=== PATIENT | female | born 1955 | race Caucasian/White ===

== ENCOUNTER 2020-12-18 11:35 | Outpatient (REF) | payer MEDICARE, OTHER, SELFPAY ==
--- NOTE | ~2020-12-18 | MM_ITS ---
EXAMINATION: MM SCREENING DIGITAL BREAST TOMOSYNTHESIS, BILATERAL CLINICAL INFORMATION: Screening. Asymptomatic. The lifetime risk of breast cancer based on the Tyrer-Cuzick Model is 11%. COMPARISON: Mammography: 10/17/2019, 07/28/2018, 07/18/2017 TECHNIQUE: Digital breast tomosynthesis is performed in both the craniocaudal and mediolateral oblique views along with computer-aided detection (CAD). Synthesized 2D images are generated from the tomosynthesis. FINDINGS: There are scattered areas of fibroglandular density (ACR BI-RADS breast composition Category b). There are no significant masses, abnormal calcifications, or other abnormalities. Parenchymal pattern is similar to prior studies. No developing density. No significant changes. MM/MM tomosynthesis screening BI IMPRESSION: No mammographic evidence of malignancy. ASSESSMENT: BI-RADS 1: Negative RECOMMENDATION: Routine annual mammography screening. This patient's information was entered into a reminder system with a target due date for their next mammogram.
== END 2020-12-18 11:36 | disposition home or self-care (01) ==
LOC: HO.MAMMO 11:35
PROVIDERS: PCP Internal Medicine; Visit Provider Internal Medicine
DX: Z12.31 Encounter for screening mammogram for malignant neoplasm of breast (principal)
CPT/HCPCS: 77063; 77067

== ENCOUNTER 2021-01-25 14:16 | Outpatient (REF) | payer MEDICARE, OTHER, SELFPAY ==
[2021-01-25 17:44] LABS: MANUAL DIFF FLAG NO
[2021-01-25 17:48] LABS: Basophils Absolute Auto 0.1 X10*3/uL (0.0-0.2); Basophils Percent Auto 1.3 % (0-2); Eosinophils Absolute Auto 0.1 X10*3/uL (0.0-0.4); Eosinophils Percent Auto 2.3 % (0-4); Hematocrit 41.3 % (37-47); Hemoglobin 13.4 g/dl (12.0-16.0); Imm Gran Abs Auto 0.02 X10*3/uL (0.00-0.03); Imm Gran Pct Auto 0.3 % (0.0-0.4); Lymphocytes Absolute Auto 1.9 X10*3/uL (1.2-4.9); Lymphocytes Percent Auto 30.8 % (20-40); Mean Corpuscular HGB Conc 32.4 g/dl (31.0-35.0); Mean Corpuscular Hemoglobin 30.4 pg (27.0-33.0); Mean Corpuscular Volume 93.7 fL (80-98); Mean Platelet Volume 10.6 fL (9.4-12.3); Monocytes Absolute Auto 0.4 X10*3/uL (0.1-1.2); Monocytes Percent Auto 7.2 % (2-11); Neutrophils Absolute Auto 3.5 X10*3/uL (2.0-8.3); Neutrophils Percent Auto 58.1 % (45-73); Platelet Count 294 X10*3/uL (160-400); Red Blood Count 4.41 X10*6/uL (4.20-5.50); Red Cell Distribution Width 12.8 % (11.0-16.0); White Blood Count 6.1 X10*3/uL (4.8-10.8)
[2021-01-25 18:05] LABS: Alanine Aminotransferase 12 U/L (0-31); Albumin Level 4.4 g/dL (3.5-5.0); Alkaline Phosphatase 77 U/L (39-117); Anion Gap 12 (12-20); Aspartate Amino Transferase 16 U/L (5-31); Bilirubin Total 0.7 mg/dL (0.0-1.0); Blood Urea Nitrogen 7 mg/dL (9-16); Calcium 10.3 mg/dL (8.4-10.2); Carbon Dioxide 29 mmol/L (22-29); Chloride 102 mmol/L (96-108); Cholesterol 186 mg/dL; Estimated Glomerular Filt Rate > 60; Glucose Fasting 92 mg/dL (60-99); HDL Cholesterol 53 mg/dL; LDL Cholesterol Calculated 109 mg/dl; Potassium 4.2 mmol/L (3.3-5.1); Sodium 139 mmol/L (135-145); Total Protein 6.8 g/dL (6.5-8.0); Triglycerides 124 mg/dL
[2021-01-25 18:27] LABS: Free T4 (Free Thyroxine) 1.13 ng/dL (0.71-1.85); Vitamin D 25-OH Total 62.6 ng/mL (>30)
[2021-01-25 18:51] LABS: Folate 14.3 ng/mL (> or = 4.0); Vitamin B12 452 pg/mL (200-900)
[2021-01-28 18:27] LABS: Thyroid Peroxidase Antibodies 2 IU/mL (<9)
== END 2021-01-25 14:17 | disposition home or self-care (01) ==
LOC: HO.HMGCLDS 14:16
PROVIDERS: PCP Internal Medicine; Visit Provider Internal Medicine
DX: R53.83 Other fatigue (principal); E03.9 Hypothyroidism, unspecified; G25.81 Restless legs syndrome; E78.5 Hyperlipidemia, unspecified; I10 Essential (primary) hypertension; Z78.0 Asymptomatic menopausal state
CPT/HCPCS: 36415; 80053; 80061; 82306; 82607; 82746; 84439; 84443; 85025; 86376

== ENCOUNTER 2021-06-11 11:40 | Outpatient (REF) | payer MEDICARE, OTHER, SELFPAY ==
[2021-06-14 17:06] LABS: Parathyroid Hormone Related Pr 12 pg/mL (11-20)
== END 2021-06-11 11:41 | disposition home or self-care (01) ==
LOC: HO.LAB 11:40
PROVIDERS: PCP Internal Medicine; Visit Provider Internal Medicine
DX: E83.52 Hypercalcemia (principal)
CPT/HCPCS: 36415; 82330; 83519

== ENCOUNTER 2021-08-31 10:46 | Outpatient (REF) | payer MEDICARE, OTHER, SELFPAY ==
[2021-08-31 13:36] LABS: Alanine Aminotransferase 8 U/L (0-31); Anion Gap 10 (12-20); Aspartate Amino Transferase 14 U/L (5-31); Blood Urea Nitrogen 9 mg/dL (9-16); Calcium 9.7 mg/dL (8.4-10.2); Carbon Dioxide 30 mmol/L (22-29); Chloride 104 mmol/L (96-108); Cholesterol 155 mg/dL; Estimated Glomerular Filt Rate > 60; Glucose Fasting 91 mg/dL (60-99); HDL Cholesterol 51 mg/dL; LDL Cholesterol Calculated 91 mg/dl; Potassium 4.1 mmol/L (3.3-5.1); Sodium 140 mmol/L (135-145); Triglycerides 67 mg/dL
[2021-08-31 13:59] LABS: Free T4 (Free Thyroxine) 1.29 ng/dL (0.71-1.85); Thyroid Stimulating Hormone 0.63 uIU/mL (0.32-4.0)
== END 2021-08-31 10:47 | disposition home or self-care (01) ==
LOC: HO.HMGCLDS 10:46
PROVIDERS: PCP Internal Medicine; Visit Provider Internal Medicine
DX: E03.9 Hypothyroidism, unspecified (principal); E78.5 Hyperlipidemia, unspecified; I10 Essential (primary) hypertension
CPT/HCPCS: 36415; 80048; 80061; 84439; 84443; 84450; 84460

== ENCOUNTER 2022-01-04 10:28 | Outpatient (REF) | payer MEDICARE, OTHER, SELFPAY ==
--- NOTE | ~2022-01-04 | MM_ITS ---
EXAMINATION: MM SCREENING DIGITAL BREAST TOMOSYNTHESIS, BILATERAL CLINICAL INFORMATION: Screening. Asymptomatic. The lifetime risk of breast cancer based on the Tyrer-Cuzick Model is 11%. COMPARISON: Mammography: 12/18/2020, 10/17/2019, 07/28/2018 TECHNIQUE: Digital breast tomosynthesis is performed in both the craniocaudal and mediolateral oblique views along with computer-aided detection (CAD). Synthesized 2D images are generated from the tomosynthesis. FINDINGS: There are scattered areas of fibroglandular density (ACR BI-RADS breast composition Category b). There are no significant masses, abnormal calcifications, or other abnormalities. Parenchymal pattern is similar to prior studies. There is no developing density or architectural abnormality. The axilla and skin contours are unremarkable. No significant changes. MM/MM tomosynthesis screening BI IMPRESSION: No mammographic evidence of malignancy. ASSESSMENT: BI-RADS 1: Negative RECOMMENDATION: Routine annual mammography screening. This patient's information was entered into a reminder system with a target due date for their next mammogram.
== END 2022-01-04 10:29 | disposition home or self-care (01) ==
LOC: HO.MAMMO 10:28
PROVIDERS: PCP Internal Medicine; Visit Provider Internal Medicine
DX: Z12.31 Encounter for screening mammogram for malignant neoplasm of breast (principal)
CPT/HCPCS: 77063; 77067

== ENCOUNTER 2022-02-14 15:44 | Inpatient (IN) | payer MEDICARE, OTHER, SELFPAY ==
--- NOTE | ~2022-02-14 | CT_ITS ---
CT ANGIOGRAM NECK WITH CONTRAST CT ANGIOGRAM BRAIN WITH CONTRAST CLINICAL INFORMATION: Diplopia. COMPARISON: Head CT 02/20/2022. TECHNIQUE: Test bolus sequences followed by intravenous administration 70 mL of Omnipaque 350. Helical imaging was performed in the axial plane from the thoracic inlet to the skull vertex. Delayed postcontrast imaging of the head was also performed. The data was processed at the certified hyperbaric technologist workstation for generation of MIP sequences. Angled MIPs and volume rendered reformatted images were also generated at an offline 3D workstation under concurrent supervision. Stenoses are assessed in accordance with NASCET criteria unless otherwise indicated. This CT examination was performed using dose optimization techniques as appropriate, variously including the following: *Automated exposure control *Adjustment of mA and/or kV according to patient size (this includes techniques or standardized protocols for targeted exams where dose is matched to indication/reason for exam; i.e. extremities or head) *Use of iterative reconstruction technique FINDINGS: BRAIN: [There is no intracranial hemorrhage, hydrocephalus, extra-axial surface collection, midline shift, or other herniation pattern. Saab to white matter differentiation is diffusely maintained without evidence of an evolved acute territorial infarct. The basilar cisterns are preserved. No significant soft tissue abnormality. No acute osseous abnormality. There is a small fluid level within the left maxillary sinus. CERVICAL SOFT TISSUES AND LUNG APICES: Biapical pleural parenchymal scarring. There is significant stranding within the subcutaneous fat of the perimandibular, jesse-maxillary, and remaining facial soft tissues bilaterally. These findings are bilateral and symmetric, possibly reflecting facial filler material but should be correlated for any clinical signs of cellulitis which could appear similar. No drainable fluid collections. Multilevel cervical spondylosis. Anterior subluxation of C4 on C5 in the setting of advanced facet arthropathy at this level. NECK CTA: [There is a classic 3 vessel configuration of the aortic arch. Proximal arch vessels are non-stenotic. The vertebral arteries are codominant. No significant ostial stenosis is visualized on either side. Both vertebral arteries are widely patent throughout their extracranial cervical course. Both common carotid arteries are normal in course and caliber.] Atherosclerotic calcification at the right carotid bifurcation resulting in a less than 50% stenosis of the proximal right internal carotid artery. Left internal carotid arteries widely patent. BRAIN CTA: [There is normal opacification of major intracranial arteries. No focal flow-limiting stenosis nor discrete proximal large artery occlusion. No aneurysm. Timing of the contrast bolus allows assessment of the major dural venous sinuses, which all opacify normally] CT/CT angio head neck IMPRESSION: - No acute intracranial findings. - No acute arterial occlusions and no significant arterial stenoses within the head or neck. - There is significant stranding within the subcutaneous fat of the perimandibular, jesse-maxillary, and remaining facial soft tissues bilaterally. These findings are bilateral and symmetric, possibly reflecting facial filler material but should be correlated for any clinical signs of cellulitis which could appear similar. No drainable fluid collections. - Multilevel cervical spondylosis. Anterior subluxation of C4 on C5 in the setting of advanced facet arthropathy at this level.
--- NOTE | ~2022-02-14 | CT_ITS ---
EXAMINATION: CT ABDOMEN AND PELVIS WITH CONTRAST CLINICAL INFORMATION: Follow-up diverticular abscess COMPARISON: CT abdomen and pelvis 02/17/2022 TECHNIQUE: Multidetector volumetric images were obtained from the superior aspect of the liver through the pubic symphysis following administration 85 mL of Omnipaque 350 intravenous contrast. Sagittal and coronal reformatted images were obtained on the technologist's workstation. Oral contrast: No This CT examination was performed using dose optimization techniques as appropriate, variously including the following: *Automated exposure control *Adjustment of mA and/or kV according to patient size (this includes techniques or standardized protocols for targeted exams where dose is matched to indication/reason for exam; i.e. extremities or head) *Use of iterative reconstruction technique DLP: 1876 mGy-cm FINDINGS: LUNG BASES: The visualized lung bases are unremarkable. LIVER, GALLBLADDER, AND BILIARY TREE: The liver is normal in size, shape, and attenuation. No focal hepatic lesion or biliary ductal dilatation is present. Status post cholecystectomy. PANCREAS: Unremarkable. SPLEEN: Unremarkable. ADRENAL GLANDS: Unremarkable. KIDNEYS AND URETERS: The kidneys are normal in size, shape, and attenuation. No hydronephrosis, hydroureter, or calculi seen. No perinephric stranding. Cyst in the upper pole of the right kidney measuring 1.7 cm it does not require imaging follow-up. BLADDER: The bladder is distended. The bladder base is obscured by streak artifact from the left hip prostheses. No gas in the bladder. GASTROINTESTINAL TRACT: There is no high-grade bowel obstruction. Small hiatal hernia. Contrast throughout the small bowel. In the right colon and transverse colon. The descending colon is decompressed with some contrast within it. There is sigmoid diverticulosis. There is a drainage catheter in the right hemipelvis with decompression of the organized fluid collection seen previously, some gas is present adjacent to the pigtail. No significant residual collection appreciated although evaluation of the deep pelvis is limited secondary to the streak artifact. ABDOMINAL WALL: No significant hernia is appreciated. LYMPH NODES: Normal. VASCULAR: Atherosclerotic calcification in the abdominal aorta without aneurysm. PELVIC VISCERA: Pelvic viscera is obscured by streak artifact. OSSEOUS STRUCTURES: Multilevel spondylosis in the visualized thoracolumbar spine. Bilateral total hip arthroplasty. CT/CT abdomen pelvis w IV con IMPRESSION: Right pelvic drainage catheter in place with significantly improved appearance of the right pelvic fluid collection. Small amount of gas surrounding the catheter without significant residual fluid collection. Sigmoid diverticulosis. Fleischner guidelines were followed.
--- NOTE | ~2022-02-14 | CT_ITS ---
EXAMINATION: CT ABDOMEN AND PELVIS WITH CONTRAST CLINICAL INFORMATION: Left lower quadrant pain COMPARISON: None TECHNIQUE: Multidetector volumetric images were obtained from the superior aspect of the liver through the pubic symphysis following administration 85 mL of Omnipaque 350 intravenous contrast. Sagittal and coronal reformatted images were obtained on the technologist's workstation. Oral contrast: No This CT examination was performed using dose optimization techniques as appropriate, variously including the following: *Automated exposure control *Adjustment of mA and/or kV according to patient size (this includes techniques or standardized protocols for targeted exams where dose is matched to indication/reason for exam; i.e. extremities or head) *Use of iterative reconstruction technique DLP: 554 mGy-cm FINDINGS: LUNG BASES: The visualized lung bases are unremarkable. LIVER, GALLBLADDER, AND BILIARY TREE: The liver is normal in size, shape, and attenuation. No focal hepatic lesion or biliary ductal dilatation is present. Cholecystectomy. PANCREAS: Unremarkable. SPLEEN: Unremarkable. ADRENAL GLANDS: Unremarkable. KIDNEYS AND URETERS: The kidneys are normal in size, shape, and attenuation. Focal scarring at the upper pole right kidney and adjacent simple cyst measuring 1.4 cm. No follow-up required. No hydronephrosis, hydroureter, or calculi seen. No perinephric stranding. BLADDER: Unremarkable. GASTROINTESTINAL TRACT: Left colonic diverticulosis. Mild fat stranding about the mid sigmoid colon within the left pelvis suspicious for diverticulitis. Normal appendix. Stomach and small bowel unremarkable. ABDOMINAL WALL: No significant hernia is appreciated. LYMPH NODES: Normal. VASCULAR: Unremarkable. PELVIC VISCERA: There is a 5.7 x 2.7 cm fluid attenuating cyst in the right adnexa apparently originating from the left ovary. Left ovary unremarkable. Normal uterus. OSSEOUS STRUCTURES: No acute or suspicious osseous abnormalities. Degenerative changes present throughout the spine. Bilateral total hip arthroplasties. CT/CT abdomen pelvis w IV con IMPRESSION: * Finding suggestive of acute uncomplicated sigmoid diverticulitis. * Incidental 5.7 x 2.7 cm cyst emanating from the right ovary. Recommend nonemergent pelvic ultrasound for further evaluation.
--- NOTE | ~2022-02-14 | MR_ITS ---
EXAMINATION: MR BRAIN WITHOUT CONTRAST CLINICAL INFORMATION: Diplopia. COMPARISON: Head CTA February 20, 2022. TECHNIQUE: Multiplanar, multisequence imaging of the brain was performed without intravenous contrast. FINDINGS: There is no acute infarction, hemorrhage, mass, or extra-axial fluid collection. Patchy T2/FLAIR hyperintensity seen within the cerebral white matter, typical of chronic microangiopathy. The ventricles and sulci are commensurate with mild degree of brain parenchymal volume loss noted. Degenerative changes are seen within the cervical spine. The major arterial flow voids are preserved at the skull base. Sequela facial augmentation is incidentally noted. The orbital contents appear normal. There are bilateral lens replacements. MR/MR head/brain wo con IMPRESSION: No acute infarct, mass lesion, intracranial hemorrhage, or evidence of hydrocephalus. Background changes of chronic microangiopathy.
--- NOTE | ~2022-02-14 | CT_ITS ---
EXAMINATION: CT HEAD WITHOUT CONTRAST CLINICAL INFORMATION: Diplopia. COMPARISON: None TECHNIQUE: Contiguous axial imaging was performed from the skull base to vertex without intravenous administration of contrast. Coronal and sagittal reformatted images were obtained. This CT examination was performed using dose optimization techniques as appropriate, variously including the following: *Automated exposure control *Adjustment of mA and/or kV according to patient size (this includes techniques or standardized protocols for targeted exams where dose is matched to indication/reason for exam; i.e. extremities or head) *Use of iterative reconstruction technique DLP: 690 mGy-cm FINDINGS: The cortical sulci are normal. The lateral ventricles are symmetrical. Minimal periventricular microvascular changes are seen. The third and fourth ventricles are in their normal midline position. The basilar and prepontine cisterns are unremarkable. There is no acute intra or extracerebral abnormality. There is no mass effect or midline shift. Sections through the bony calvarium are unremarkable. The paranasal sinuses show a very small air-fluid level in the left sphenoid sinus. Minimal mucosal thickening in the ethmoid sinuses. The bony orbits and orbital contents are unremarkable. CT/CT head/brain wo IV con IMPRESSION: No acute intracranial pathology.
--- NOTE | ~2022-02-14 | CT_ITS ---
EXAMINATION: CT ABDOMEN AND PELVIS WITHOUT CONTRAST CLINICAL INFORMATION: Abdominal pain. Follow-up diverticulitis. COMPARISON: Previous CT of the abdomen and pelvis 01/26/2022 TECHNIQUE: Multidetector volumetric imaging was performed from the superior aspect of the liver through the pubic symphysis. Sagittal and coronal reformatted images were obtained on the technologist's workstation. This CT examination was performed using dose optimization techniques as appropriate, variously including the following: *Automated exposure control *Adjustment of mA and/or kV according to patient size (this includes techniques or standardized protocols for targeted exams where dose is matched to indication/reason for exam; i.e. extremities or head) *Use of iterative reconstruction technique DLP: 117 mGy-cm FINDINGS: LUNG BASES: The visualized lung bases are clear. There is a small right posterior diaphragmatic hernia containing fat in the upper pole right kidney.. LIVER, GALLBLADDER, AND BILIARY TREE: The liver is normal in size, shape, and attenuation. No focal hepatic lesion or biliary ductal dilatation is present. The gallbladder has been removed. PANCREAS: Unremarkable. SPLEEN: Unremarkable. ADRENAL GLANDS: Unremarkable. KIDNEYS AND URETERS: There are small bilateral renal stones, right greater than left. The upper pole right kidney through the right diaphragmatic hernia. BLADDER: Unremarkable. GASTROINTESTINAL TRACT: There is diverticulosis of the colon. There is mild wall thickening of the sigmoid colon and stranding of the surrounding fat suggestive of sigmoid diverticulitis. There are small air collections in the pelvis outside the bowel suggestive of obtained perforation. No evidence of free air is seen. There is a 5 x 6 cm fluid collection in the right pelvis with all amount of air suggestive of an abscess. There may be additional smaller abscesses seen in the midline left pelvis superior to the uterine fundus and region of the left adnexa. The small and large bowel is slightly distended and contrast/fluid-filled suggestive of an ileus. Immediate full thickening of the stomach. ABDOMINAL WALL: No significant hernia is appreciated. LYMPH NODES: Normal. VASCULAR: There is evidence of atherosclerotic disease. PELVIC VISCERA: Not well evaluated due to artifact from hip replacements. OSSEOUS STRUCTURES: Degenerative changes of the spine. Anterior subluxation of L4 with respect L5. Bilateral hip replacements. CT/CT abdomen pelvis wo IV con IMPRESSION: Sigmoid diverticulitis. Small amount of extraluminal air in the pelvis suggestive of contained perforation. No evidence of free air. Fluid collection in the right pelvis with small amount of air measuring 5 x 6 cm suggestive of an abscess. Question smaller abscesses superior to the uterus and in the left adnexa. Generalized ileus. Small bilateral renal stones. Findings will be communicated by the [place] work flow vocal artist. Fleischner guidelines were followed.
--- NOTE | ~2022-02-14 | CT_ITS ---
PROCEDURE: CT GUIDED DRAINAGE, PERITONEAL ABSCESS CLINICAL INFORMATION: Diverticulitis and pelvic abscess. COMPARISON: Previous CT of the abdomen and pelvis, most recent from yesterday. TECHNIQUE: Procedure and risks and benefits including bleeding, infection and injury to the bowel or adjacent organs was discussed with the patient and informed consent was obtained. The patient was positioned in the prone position. Limited axial images through the pelvis were performed. The right buttock was prepped and draped in the usual sterile fashion. The skin and soft tissues were anesthetized with 1% lidocaine plain. Using a 22-gauge Chiba needle, access to the fluid collection in the pelvis was obtained. Bronson-colored purulent fluid was aspirated. Over an 018 wire, a 6 [place] AccuStick system was positioned in the collection. 018 wire was exchanged for an 035 wire. An 8.5 [place] pigtail drainage catheter was advanced over the wire into the collection. Approximately 120 mL of bronson, purulent-appearing fluid was removed. Specimen was sent for culture. Conscious sedation was provided by a registered nurse under my direct supervision. The patient received Versed 2 mg and fentanyl 100 mcg intravenously during the procedure. Total sedation time was [address] examination was performed using dose optimization techniques as appropriate, variously including the following: *Automated exposure control *Adjustment of mA and/or kV according to patient size (this includes techniques or standardized protocols for targeted exams where dose is matched to indication/reason for exam; i.e. extremities or head) *Use of iterative reconstruction technique DLP: 164 mGy-cm FINDINGS: There is a 5 x 6 cm fluid collection in the right pelvis with small air-fluid level that was targeted for aspiration. Post-imaging demonstrates adequate position of the drain and no appreciable residual collection seen. CT/CT drain peritoneum IMPRESSION: CT-guided right pelvic 8.5 [place] drain placement.
[2022-02-14 17:01] VITALS: BP 148/85; PULSE 76; RESP 18; TEMP 36.7; O2SAT 99; BMI 22.8
[2022-02-15] VITALS (8 sets, daily range): BP systolic 102–145; BP diastolic 55–84; PULSE 76–95; RESP 14–18; TEMP 37–38.2; O2SAT 95–98
[2022-02-15 01:33] LABS: Basophils Percent Auto 0.1 % (0-2); Hematocrit 41.7 % (37.0-47.0); Hemoglobin 13.5 g/dl (12.0-16.0); Imm Gran Abs Auto 0.03 X10*3/uL (0.00-0.03); Imm Gran Pct Auto 0.2 % (0.0-0.4); Lymphocytes Absolute Auto 0.8 X10*3/uL (1.2-4.9); Lymphocytes Percent Auto 5.7 % (20-40); MANUAL DIFF FLAG NO; Mean Corpuscular HGB Conc 32.4 g/dl (31.0-35.0); Mean Corpuscular Hemoglobin 30.1 pg (27.0-33.0); Mean Corpuscular Volume 93.1 fL (80.0-98.0); Mean Platelet Volume 9.7 fL (9.4-12.3); Monocytes Absolute Auto 0.6 X10*3/uL (0.1-1.2); Monocytes Percent Auto 4.5 % (2-11); Neutrophils Absolute Auto 12.1 x10*3/uL (2.0-8.3); Neutrophils Percent Auto 89.5 % (45-73); Platelet Count 252 X10*3/uL (160-400); Red Blood Count 4.48 X10*6/uL (4.20-5.50); Red Cell Distribution Width 12.6 % (11.0-16.0); White Blood Count 13.5 X10*3/uL (4.8-10.8)
[2022-02-15 01:56] LABS: Alanine Aminotransferase 13 U/L (0-31); Albumin Level 4.5 g/dL (3.5-5.0); Alkaline Phosphatase 74 U/L (39-117); Anion Gap 17 (12-20); Aspartate Amino Transferase 19 U/L (5-31); Bilirubin Direct 0.6 mg/dL (0.0-0.5); Bilirubin Total 1.4 mg/dL (0.0-1.0); Blood Urea Nitrogen 15 mg/dL (9-16); Calcium 9.8 mg/dL (8.4-10.2); Carbon Dioxide 26 mmol/L (22-29); Chloride 99 mmol/L (96-108); Creatinine Clr Calc Pharmacy 63.6; Estimated Glomerular Filt Rate > 60; Glucose Random 114 mg/dL (60-115); Lipase 5 U/L (8-78); Potassium 4.4 mmol/L (3.3-5.1); Sodium 138 mmol/L (135-145); Total Protein 7.1 g/dL (6.5-8.0)
--- NOTE | 2022-02-15 02:19 | ED_ITS ---
HPI - Abdominal Pain General Chief Complaint: Abdominal Pain Stated Complaint: acute lower abd pain Time Seen by Provider: 02/15/22 01:57 Source: patient Mode of arrival: ambulatory History of Present Illness HPI narrative: 66-year-old female who presents with left lower quadrant pain that started evening that has been associated with nausea and chills but she denies active vomiting or fevers and states that she has been unable to eat and that the pain has increased in the lower abdomen, she denies any surgical history and states that she continues to pass flatus. Related Data Home Medications Medication Instructions Recorded Confirmed ascorbate calcium (vitamin C) 500 500 mg PO DAILY 01/25/21 10/31/21 mg tablet cholecalciferol (vitamin D3) 25 25 mcg PO DAILY 01/25/21 10/31/21 mcg (1,000 unit) capsule omeprazole 20 mg capsule,delayed 20 mg PO .QOD 01/25/21 10/31/21 release vitamin E mixed 400 unit capsule unit PO 01/25/21 10/31/21 zinc 50 mg tablet 50 mg PO DAILY 01/25/21 10/31/21 Previous Rx's Medication Instructions Recorded rosuvastatin 5 mg tablet 5 mg PO DAILY #90 tabs 03/28/21 levothyroxine 75 mcg tablet 75 mcg PO DAILY #90 tabs 06/21/21 gabapentin 600 mg tablet 600 mg PO BEDTIME #30 tabs 10/06/21 mupirocin 2 % topical ointment 1 appl topical BID 7 days #15 grams 10/22/21 prednisone 20 mg tablet 20 mg PO DAILY 5 days #5 tabs 10/22/21 clotrimazole-betamethasone 1 1 appl topical ONCE 30 days #45 12/10/21 %-0.05 % topical cream grams atenolol 25 mg tablet 25 mg PO DAILY #90 tabs 12/24/21 lorazepam 0.5 mg tablet 0.5 mg PO DAILY PRN anxiety about 01/23/22 flying #5 tabs Allergies Allergy/AdvReac Type Severity Reaction Status Date / Time No Known Allergies Allergy Mild NOT Verified 10/31/21 10:10 APPLICABLE Review of Systems Review of Systems Pertinent positives and negatives as stated in HPI 10 point review of systems is otherwise negative. PMFSH Past Medical History Source: nursing notes reviewed Medical History Acquired hypothyroidism Dyslipidemia Essential hypertension Fatigue Restless leg syndrome Social History Social History Housing: House Patient Tobacco Use Status: Former Tobacco user Years Smoked: 25 yrs e-Cigarette/Vaping Use: Never Used Use of substances other than those prescribed or required for medical reasons: No Advance Directives: No Advance Directives Information Provided: No Current occupational status: retired Cognitive needs: No Hearing needs: No Vision needs: No Physical Exam ED Vital Signs: Vital Signs - 24 hr 02/14/22 17:01 02/15/22 02:28 Temperature 98.1 F 100.8 F H Pulse Rate 76 95 Respiratory Rate 18 14 Blood Pressure 148/85 H 145/84 H Pulse Oximetry 99 96 Oxygen Delivery Method Room Air Room Air BMI result Body Mass Index 22.8 VITAL SIGNS: Reviewed. GENERAL: Well developed, well nourished, in no acute distress. HEAD: Normocephalic/atraumatic EYES: PERRLA, EOMI EARS: Ext canals without abnormality OROPHARYNX: no oral lesions noted, posterior pharynx clear dry mucosa NECK: Supple, no adenopathy LUNGS: Normal breath sounds. No adventitious sounds or accessory muscle use. SpO2<99> CARDIOVASCULAR: Regular rate and rhythm without noted murmurs ABDOMEN: Soft, diffuse tenderness in lower abdomen without rebound, non- distended with bowel sounds. MUSCULOSKELETAL: No tenderness, deformities, or effusions noted on gross inspection. EXTREMITIES: No cyanosis, clubbing or edema. SKIN: Inspection of the skin reveals no rashes NEUROLOGIC: Alert and oriented x 4. Strength and sensation to light touch were grossly intact x 4. Course Course Course Narrative: 0222: 66-year-old female with history and clinical presentation for which we will rule out diverticulitis, UTI, renal colic, appendicitis, SBO. Patient received IV fluids as well as pain medication. After review of all investigations findings consistent with diverticulitis, poor p.o. intake and dehydration. Patient received IV fluids, antibiotics as well as antiemetics. I discussed the case with the surgical team who accepts admission. MDM - Abdominal Pain Lab Data Result diagrams: 02/15/22 01:28 02/15/22 01:28 Labs: Lab Results 02/15/22 02/15/22 02/15/22 Range/Units 01:28 01:28 02:58 WBC 13.5 H (4.8-10.8) X10*3/uL RBC 4.48 (4.20-5.50) X10*6/uL Hgb 13.5 (12.0-16.0) g/dl Hct 41.7 (37.0-47.0) % MCV 93.1 (80.0-98.0) fL MCH 30.1 (27.0-33.0) pg MCHC 32.4 (31.0-35.0) g/dl RDW 12.6 (11.0-16.0) % Plt Count 252 (160-400) X10*3/uL MPV 9.7 (9.4-12.3) fL Immature Gran % (Auto) 0.2 (0.0-0.4) % Neut % (Auto) 89.5 H (45-73) % Lymph % (Auto) 5.7 L (20-40) % [place] % (Auto) 4.5 (2-11) % Eos % (Auto) 0.0 (0-4) % Baso % (Auto) 0.1 (0-2) % Lymph # (Auto) 0.8 L (1.2-4.9) X10*3/uL [place] # (Auto) 0.6 (0.1-1.2) X10*3/uL Eos # (Auto) 0.0 (0.0-0.4) X10*3/uL Baso # (Auto) 0.0 (0.0-0.2) X10*3/uL Abs Immat Gran (auto) 0.03 (0.00-0.03) X10*3/uL Absolute Neuts (auto) 12.1 H (2.0-8.3) x10*3/uL Absolute Nucleated RBC 0.000 (0.0-0.012) X10*3/uL Nucleated RBC % (auto) 0.0 (0.0-0.2) /100WBC Sodium 138 (135-145) mmol/L Potassium 4.4 (3.3-5.1) mmol/L Chloride 99 (96-108) mmol/L Carbon Dioxide 26 (22-29) mmol/L Anion Gap 17 (12-20) BUN 15 D (9-16) mg/dL Creatinine 0.70 (0.5-1.4) mg/dL Estim Creat Clear Calc 63.6 Estimated GFR > 60 Random Glucose 114 (60-115) mg/dL Lactic Acid 1.2 (0.5-2.0) mmol/L Calcium 9.8 (8.4-10.2) mg/dL Total Bilirubin 1.4 H (0.0-1.0) mg/dL Direct Bilirubin 0.6 H (0.0-0.5) mg/dL AST 19 (5-31) U/L ALT 13 (0-31) U/L Alkaline Phosphatase 74 (39-117) U/L Total Protein 7.1 (6.5-8.0) g/dL Albumin 4.5 (3.5-5.0) g/dL Lipase 5 L (8-78) U/L COVID-19 ([facility]) (Negative) COVID-19 Clin Com 02/15/22 Range/Units 02:58 WBC (4.8-10.8) X10*3/uL RBC (4.20-5.50) X10*6/uL Hgb (12.0-16.0) g/dl Hct (37.0-47.0) % MCV (80.0-98.0) fL MCH (27.0-33.0) pg MCHC (31.0-35.0) g/dl RDW (11.0-16.0) % Plt Count (160-400) X10*3/uL MPV (9.4-12.3) fL Immature Gran % (Auto) (0.0-0.4) % Neut % (Auto) (45-73) % Lymph % (Auto) (20-40) % [place] % (Auto) (2-11) % Eos % (Auto) (0-4) % Baso % (Auto) (0-2) % Lymph # (Auto) (1.2-4.9) X10*3/uL [place] # (Auto) (0.1-1.2) X10*3/uL Eos # (Auto) (0.0-0.4) X10*3/uL Baso # (Auto) (0.0-0.2) X10*3/uL Abs Immat Gran (auto) (0.00-0.03) X10*3/uL Absolute Neuts (auto) (2.0-8.3) x10*3/uL Absolute Nucleated RBC (0.0-0.012) X10*3/uL Nucleated RBC % (auto) (0.0-0.2) /100WBC Sodium (135-145) mmol/L Potassium (3.3-5.1) mmol/L Chloride (96-108) mmol/L Carbon Dioxide (22-29) mmol/L Anion Gap (12-20) BUN (9-16) mg/dL Creatinine (0.5-1.4) mg/dL Estim Creat Clear Calc Estimated GFR Random Glucose (60-115) mg/dL Lactic Acid (0.5-2.0) mmol/L Calcium (8.4-10.2) mg/dL Total Bilirubin (0.0-1.0) mg/dL Direct Bilirubin (0.0-0.5) mg/dL AST (5-31) U/L ALT (0-31) U/L Alkaline Phosphatase (39-117) U/L Total Protein (6.5-8.0) g/dL Albumin (3.5-5.0) g/dL Lipase (8-78) U/L COVID-19 ([facility]) Negative (Negative) COVID-19 Clin Com See Note Critical Care Time Critical Care Time Critical Care Time: Yes Total Critical Care Time: 30 Attestation: I personally attest to this time spent taking care of the patient. Discharge Plan Discharge Clinical Impression: Sepsis, Diverticulitis, Dehydration, Ovarian cyst Patient Disposition: Admitted As Inpatient
[2022-02-15] MEDS: Ketorolac Tromethamine 30 MG/ML VIAL 15 MG IVPUSH (02:22)
[2022-02-15] MEDS: 0.9 % Sodium Chloride 1,000 ML 999 ML IV (02:23)
[2022-02-15] MEDS: iohexoL 350 MG/ML 100 ML INFUS..BTL 85 ML IV (02:47)
[2022-02-15 03:19] LABS: COVID-19 Test Negative (Negative); Lactic Acid 1.2 mmol/L (0.5-2.0)
[2022-02-15] MEDS: HYDROmorphone HCl 0.5 MG/0.5 ML SYRINGE IVPUSH ×5 (03:52→22:31)
[2022-02-15] MEDS: ondansetron HCL 4 MG/2 ML VIAL IVPUSH (03:52)
[2022-02-15] MEDS: Piperacillin Sodium/Tazobactam 3.375 GM in 0.9 % Sodium Chloride 50 ML IV ×4 (03:53→21:10)
[2022-02-15] MEDS: Acetaminophen 325 MG TABLET 975 MG PO (03:53)
--- NOTE | 2022-02-15 03:54 | P.HPGS_ITS ---
History of Present Illness History of Present Illness Date of Service: 02/15/22 Chief complaint: Acute sigmoid diverticulitis Narrative: Fide Edward is a 66 year old female presenting with complaints of abdominal pain in theLower abdomen since 02/13/2022. She denies a pre vious history of similar pain. She reports several days of constipation but denied fever, chills, nausea, or vomiting. Upon presentation she reports her pain was 10/10 but currently the pain is 6/10 after pain medication. Workup in the emergency department revealed a WBC of 13.5. CT abdomen and pelvis revealed an ovarian cyst on the left side with a normal ovary ( follow-up ultrasound recommended ). An area of sigmoid diverticulitis without abscess was identified . Her last colonoscopy was performed by Dr. Diane on 09/24/2012 and revealed a benign polyp at 40 cm. Review of Systems Review of Systems: Yes all other systems are reviewed and are negative Constitutional: Constitutional: Denies chills, Denies fever(s), Denies headache(s), Reports poor appetite and Denies weakness ENT: Denies headache(s) Cardiovascular: Cardiovascular: Denies chest pain, Denies irregular heart rhythm, Denies palpitations and Denies dyspnea Respiratory: Respiratory: Denies cough, Denies excessive phlegm production and Denies dyspnea Gastrointestinal: Gastrointestinal: Reports abdominal pain, Reports bloating, Denies change in bowel habits, Reports constipation, Denies heartburn, Denies diarrhea, Denies nausea and Denies vomiting Genitourinary: Genitourinary: Denies urinary frequency Musculoskeletal: Musculoskeletal: Denies back pain, Reports arthralgias ( Rec ently underwent knee injections), Denies muscle weakness and Denies numbness Integumentary/Breasts: Skin/Breast: Denies changing lesions and Denies unusual bruising Neurologic: Denies headache(s), Denies numbness, Denies paresthesias and Denies weakness Psychiatric: Psychiatric: Denies anxiety and Denies depression Endocrine: Endocrine: Denies palpitations Hematologic/Lymphatic: Hematologic/Lymphatic: Denies lymphadenopathy PMFSH Past Medical History Medical History Acquired hypothyroidism Dyslipidemia Essential hypertension Fatigue Restless leg syndrome Surgical History Surgical History (Updated 02/15/22 @ 08:43 by Vernon Gupta MD) Hx laparoscopic cholecystectomy (07/04/96) Social History Social History Housing: House Patient Tobacco Use Status: Former Tobacco user Years Smoked: 25 yrs e-Cigarette/Vaping Use: Never Used Use of substances other than those prescribed or required for medical reasons: No Advance Directives: No Advance Directives Information Provided: No Current occupational status: retired Cognitive needs: No Hearing needs: No Vision needs: No Meds Allergies Allergy/AdvReac Type Severity Reaction Status Date / Time No Known Allergies Allergy Mild NOT Verified 10/31/21 10:10 APPLICABLE Active Medications: Current Medications Acetaminophen (Acetaminophen 325 Mg Tablet) 650 mg PO QID PRN PRN Reason: headache, temp > 101 Hydromorphone HCl (Hydromorphone Hcl 0.5 Mg/0.5 Ml Syringe) 0.5 mg IVPUSH Q3H PRN; Protocol PRN Reason: Pain, Severe (Pain Scale 7-10) Dextrose/Lactated Ringer's (D5lr) 1,000 mls @ 125 mls/hr IVCONT .Q8H JOSE Piperacillin Sod/Tazobactam (Sod 3.375 gm/ Sodium Chloride) 50 mls @ 100 mls/hr IV Q6H JOSE Ondansetron HCl (Ondansetron Hcl 4 Mg/2 Ml Vial) 4 mg IVPUSH QID PRN PRN Reason: Nausea Oxycodone HCl (Oxycodone Hcl Immed Release 5 Mg Tablet) 5 mg PO Q6H PRN PRN Reason: Pain, Moderate (Pain Scale 4-6 Pharmacy Consult (Consult Rx Perform Med Rec) 1 each MISCELLANE ONCE PRN PRN Reason: Consult order Sodium Chloride (0.9 % Sodium Chloride Flush 3 Ml Syringe) 3 ml IVFLUSH QSHIFT JOSE Zolpidem Tartrate (Zolpidem Tartrate 5 Mg Tablet) 5 mg PO BEDTIME PRN PRN Reason: Insomnia Home Medications Medication Instructions Recorded Confirmed Last Taken Type ascorbate calcium (vitamin C) 500 500 mg PO DAILY 01/25/21 10/31/21 Unknown History mg tablet cholecalciferol (vitamin D3) 25 25 mcg PO DAILY 01/25/21 10/31/21 Unknown History mcg (1,000 unit) capsule omeprazole 20 mg capsule,delayed 20 mg PO .QOD 01/25/21 10/31/21 Unknown History release vitamin E mixed 400 unit capsule unit PO 01/25/21 10/31/21 Unknown History zinc 50 mg tablet 50 mg PO DAILY 01/25/21 10/31/21 Unknown History Physical Exam Vital Signs: Vital Signs: Last Vital Signs Temp 100.8 F H 02/15/22 02:28 Pulse 95 02/15/22 02:28 Resp 14 02/15/22 02:28 BP 145/84 H 02/15/22 02:28 Pulse Ox 96 02/15/22 02:28 O2 Del Method 02/15/22 02:28 BMI result Body Mass Index 22.8 Const: General: cooperative and no acute distress Nutritional Appearance: well nourished Orientation/consciousness: patient oriented x3 Limitations: no limitations HEENT: Head: Yes normocephalic and Yes atraumatic Ears: hearing grossly normal bilaterally Resp: Effort & Inspection: normal respiratory effort, no audible wheezes, no cough and no respiratory distress Auscultation: clear to auscultation bilaterally, no crackles, no rales, no rhonchi and no wheezes Cardio: Jugular venous distension: no JVD Rate: regular rate Rhythm: reg ular rhythm Heart sounds: S1 normal heart sound present and S2 normal heart sound present GI: Inspection: Yes normal to inspection Palpation (GI): Soft to palpation, Tenderness to palpation present (GI) in the LLQ and in the RLQ; not at McBurney's point, no guarding, not rigid and no hernias Percussion: Yes normal to percussion Auscultation: normal bowel sounds Skin: Other: Warm, dry, no rash Neuro: General: patient oriented x3 Extrem: General: Yes normal to inspection and Yes no clubbing, cyanosis or edema Results Results Labs: Short CBC 02/15/22 Range/Units 01:28 WBC 13.5 H (4.8-10.8) X10*3/uL Hgb 13.5 (12.0-16.0) g/dl Hct 41.7 (37.0-47.0) % Plt Count 252 (160-400) X10*3/uL BMP 02/15/22 01:28 Sodium 138 Potassium 4.4 Chloride 99 Carbon Dioxide 26 BUN 15 D Creatinine 0.70 Calcium 9.8 Liver Function 02/15/22 Range/Units 01:28 Total Bilirubin 1.4 H (0.0-1.0) mg/dL Direct Bilirubin 0.6 H (0.0-0.5) mg/dL AST 19 (5-31) U/L ALT 13 (0-31) U/L Alkaline Phosphatase 74 (39-117) U/L Albumin 4.5 (3.5-5.0) g/dL Assessment and Plan (1) Diverticulitis: Status: Acute Plan 66-year-old female patient presenting with a 1st episode of sigmoid diverticulitis presenting with pain since 02/13/2022. Patient has a mildly elevated WBC and CT reveals small area of thickening in the sigmoid colon with no abscess. Findings are consistent with non complicated sigmoid diverticulitis. I recommended a short period of IV antibiotics with conversion to oral antibiotics once her pain is improved and she is tolerating a regular diet. She has had several liquid bowel movements in the emergency department therefore I will start on clear liquids today. Patient expressed understanding and agrees with the plan. We discussed colonoscopy after the acute diverticulitis has subsided, and she is 9 years since her last colonoscopy. In addition, an outpatient and pelvic ultrasound is recommended to evaluate the ovarian cyst. Quality Stroke Does the patient have a stroke diagnosis?: No VTE Prior VTE?: No VTE Risk Level:: Surgical - low VTE Device Contraindication: N/A - Device Ordered VTE Drug Contraindication: Treatment Not Indicated Procedures Date of Service Date of Service: 02/15/22
--- NOTE | 2022-02-15 04:04 | PC.NURSE ---
assumed care of patient @0315. iv zosyn, zofran, dilaudid, and po tylenol given per mar orders. pt resting comfortably on stretcher. speaking clear full sentences, A&Ox4. no apparent distress. will continue to monitor
--- NOTE | 2022-02-15 05:59 | PC.NURSE ---
pt sleeping comfortably on stretcher. no apparent distress equal chest rise and fall. call benson within reach
[2022-02-15] MEDS: Dextrose 5 % and Lactated Ring 1,000 ML 125 ML IVCONT ×3 (06:34→23:37)
[2022-02-15 08:25] LABS: Anion Gap 14 (12-20); Blood Urea Nitrogen 15 mg/dL (9-16); Carbon Dioxide 24 mmol/L (22-29); Chloride 103 mmol/L (96-108); Creatinine Clr Calc Pharmacy 61.8; Estimated Glomerular Filt Rate > 60; Glucose Random 138 mg/dL (60-115); Potassium 4.4 mmol/L (3.3-5.1); Sodium 137 mmol/L (135-145)
[2022-02-15 08:47] LABS: Calcium 8.7 mg/dL (8.4-10.2)
--- NOTE | 2022-02-15 08:51 | PC.NURSE ---
pt. A&O x4. resting comfortably. reports abd pain on RUQ and adb spasms. pain 11/03. Gave her Dilaudid 0.5mg. some N/D.
[2022-02-15] MEDS: Acetaminophen 325 MG TABLET 650 MG PO ×2 (10:13→16:14)
--- NOTE | 2022-02-15 10:21 | PHA.MEDREC ---
Pharmacy Consult ? Medication Reconciliation Pharmacy has completed the medication reconciliation. sPOKE WITH PATIENT IN THE ED
--- NOTE | 2022-02-15 11:14 | MHC.CM.PN ---
Attempted to meet with patient in regards to discharge planning. Patient currently sleeping. No family present. Will attempt to meet again. Continue to monitor for d/c needs.
--- NOTE | 2022-02-15 16:31 | PC.NURSE ---
pt resting comfortably. complains of pain 12/04. States pain meds help with pain but doesn't last long. gave her Tylenol and a cold wet rag to put on her forehead.
[2022-02-15] MEDS: Atorvastatin Calcium 20 MG TABLET PO (21:10)
[2022-02-15] MEDS: Gabapentin 600 MG TABLET PO (21:10)
[2022-02-15] MEDS: 0.9 % Sodium Chloride Flush 3 ML SYRINGE IVFLUSH (21:16)
[2022-02-15] MEDS: oxyCODONE HCl Immed Release 5 MG TABLET PO (21:25)
[2022-02-16] VITALS (8 sets, daily range): BP systolic 115–130; BP diastolic 65–83; PULSE 80–92; RESP 16–18; TEMP 36.5–37.4; O2SAT 95–98
[2022-02-16] MEDS: Levothyroxine Sodium 75 MCG TABLET PO (05:20)
[2022-02-16] MEDS: Piperacillin Sodium/Tazobactam 3.375 GM in 0.9 % Sodium Chloride 50 ML IV ×4 (05:21→22:06)
[2022-02-16] MEDS: Dextrose 5 % and Lactated Ring 1,000 ML 125 ML IVCONT (05:24)
[2022-02-16 06:19] LABS: MANUAL DIFF FLAG NO
[2022-02-16 06:32] LABS: Basophils Percent Auto 0.1 % (0-2); Eosinophils Percent Auto 0.3 % (0-4); Hematocrit 34.5 % (37.0-47.0); Hemoglobin 11.1 g/dl (12.0-16.0); Imm Gran Abs Auto 0.07 X10*3/uL (0.00-0.03); Imm Gran Pct Auto 0.5 % (0.0-0.4); Lymphocytes Absolute Auto 0.8 X10*3/uL (1.2-4.9); Lymphocytes Percent Auto 5.4 % (20-40); Mean Corpuscular HGB Conc 32.2 g/dl (31.0-35.0); Mean Corpuscular Hemoglobin 30.2 pg (27.0-33.0); Mean Corpuscular Volume 93.8 fL (80.0-98.0); Mean Platelet Volume 10.2 fL (9.4-12.3); Monocytes Absolute Auto 0.6 X10*3/uL (0.1-1.2); Monocytes Percent Auto 4.3 % (2-11); Neutrophils Absolute Auto 12.4 x10*3/uL (2.0-8.3); Neutrophils Percent Auto 89.4 % (45-73); Platelet Count 199 X10*3/uL (160-400); Red Blood Count 3.68 X10*6/uL (4.20-5.50); Red Cell Distribution Width 12.5 % (11.0-16.0); White Blood Count 13.8 X10*3/uL (4.8-10.8)
--- NOTE | 2022-02-16 09:38 | PM.PNGS ---
Subjective Subjective Date of Service: 02/16/22 Interval history: Overall the patient does feel improved but does report some back pain this morning. She denies any further diarrhea. She reports being hungry and would like to try a regular diet. Physical Exam Vital Signs: Vital Signs: Last Vital Signs Temp 99.3 F 02/16/22 07:54 Pulse 92 02/16/22 07:54 Resp 18 02/16/22 07:54 BP 130/75 02/16/22 07:54 Pulse Ox 97 02/16/22 07:54 O2 Del Method 02/16/22 07:54 BMI result Body Mass Index 22.8 Const: General: cooperative and no acute distress Nutritional Appearance: well nourished Orientation/consciousness: patient oriented x3 Limitations: no limitations HEENT: Head: Yes normocephalic and Yes atraumatic Ears: hearing grossly normal bilaterally Resp: Effort & Inspection: normal respiratory effort, no audible wheezes, no cough and no respiratory distress Auscultation: clear to auscultation bilaterally, no crackles, no rales, no rhonchi and no wheezes Cardio: Jugular venous distension: no JVD Rate: regular rate Rhythm: regular rhythm Heart sounds: S1 normal heart sound present and S2 normal heart sound present GI: Inspection: Yes normal to inspection Palpation (GI): Soft to palpation, Tenderness to palpation present (GI) (Less tender this morning compared to yesterday) in the LLQ and in the RLQ; not at McBurney's point, no guarding, not rigid and no hernias Percussion: Yes normal to percussion Auscultation: normal bowel sounds Skin: Other: Warm, dry, no rash Neuro: General: patient oriented x3 Extrem: General: Yes normal to inspection and Yes no clubbing, cyanosis or edema Objective Data Active Medications Acetaminophen (Acetaminophen 325 Mg Tablet) 650 mg PO QID PRN PRN Reason: headache, temp > 101 Last Admin: 02/15/22 16:14 Dose: 650 mg Documented By: JELLY Atenolol (Atenolol 25 Mg Tablet) 25 mg PO DAILY [facility]; Protocol Atorvastatin Calcium (Atorvastatin Calcium 20 Mg Tablet) 20 mg PO BEDTIME [facility] Last Admin: 02/15/22 21:10 Dose: 20 mg Documented By: ALINA Gabapentin (Gabapentin 600 Mg Tablet) 600 mg PO BEDTIME [facility] Last Admin: 02/15/22 21:10 Dose: 600 mg Documented By: ALINA Hydromorphone HCl (Hydromorphone Hcl 0.5 Mg/0.5 Ml Syringe) 0.5 mg IVPUSH Q3H PRN; Protocol PRN Reason: Pain, Severe (Pain Scale 7-10) Last Admin: 02/15/22 22:31 Dose: 0.5 mg Documented By: ALINA Piperacillin Sod/Tazobactam (Sod 3.375 gm/ Sodium Chloride) 50 mls @ 100 mls/hr IV Q6H [facility] Last Infusion: 02/16/22 06:09 Dose: 0 mls/hr Documented By: ALINA Levothyroxine Sodium (Levothyroxine Sodium 75 Mcg Tablet) 75 mcg PO DAILY@06 [facility] Last Admin: 02/16/22 05:20 Dose: 75 mcg Documented By: ALINA Omeprazole (Omeprazole 20 Mg Capsule.Dr) 20 mg PO Q2D@629 [facility] Ondansetron HCl (Ondansetron Hcl 4 Mg/2 Ml Vial) 4 mg IVPUSH Q8H PRN PRN Reason: Nausea Oxycodone HCl (Oxycodone Hcl Immed Release 5 Mg Tablet) 5 mg PO Q6H PRN PRN Reason: Pain, Moderate (Pain Scale 4-6 Last Admin: 02/15/22 21:25 Dose: 5 mg Documented By: ALINA Pharmacy Consult (Consult Rx Perform Med Rec) 1 each MISCELLANE ONCE PRN PRN Reason: Consult order Sodium Chloride (0.9 % Sodium Chloride Flush 3 Ml Syringe) 3 ml IVFLUSH QSHIFT [facility] Last Admin: 02/16/22 07:46 Dose: Not Given Documented By: COTEMA Non-Admin Reason: IV Running Zolpidem Tartrate (Zolpidem Tartrate 5 Mg Tablet) 5 mg PO BEDTIME PRN PRN Reason: Insomnia Labs CBC & Chem 7: 02/16/22 05:55 02/15/22 07:23 Labs: Laboratory Results - last 24 hr 02/16/22 05:55 MCV 93.8 MCH 30.2 MCHC 32.2 RDW 12.5 Plt Count 199 MPV 10.2 Immature Gran % (Auto) 0.5 H Neut % (Auto) 89.4 H Lymph % (Auto) 5.4 L [place] % (Auto) 4.3 Eos % (Auto) 0.3 Baso % (Auto) 0.1 Lymph # (Auto) 0.8 L [place] # (Auto) 0.6 Eos # (Auto) 0.0 Baso # (Auto) 0.0 Abs Immat Gran (auto) 0.07 H Absolute Neuts (auto) 12.4 H Absolute Nucleated RBC 0.000 Nucleated RBC % (auto) 0.0 Microbiology Microbiology Results: Microbiology 02/15/22 02:58 Blood Culture - Preliminary Blood - Venous No growth after 24 hours. 02/15/22 02:58 Blood Culture - Preliminary Blood - Venous No growth after 24 hours. Procedures Date of Service Date of Service: 02/16/22 Progress Note: A&P Assessment and plan (1) Diverticulitis: Status: Acute Plan 66-year-old female patient presenting with a 1st episode of uncomplicated diverticulitis. Her abdominal pain is improved although the WBC remains elevated. She will continue on IV Zosyn for now. Blood cultures are negative to date. Her abdominal exam is improved with decreased abdominal tenderness, no rebound or guarding. I will advance her to a regular diet today (low-fiber). Possible discharge tomorrow if this is tolerated and WBC is improved. Time Spent With Patient Time: Total time spent is greater than 50% in coordination of care (as documented) at patient's floor/unit and/or counseling patient: No Severe Sepsis: No Severe Sepsis Quality Stroke Does the patient have a stroke diagnosis?: No VTE Prior VTE?: No VTE Risk Level:: Surgical - low VTE Device Contraindication: N/A - Device Ordered VTE Drug Contraindication: Treatment Not Indicated
[2022-02-16] MEDS: HYDROmorphone HCl 0.5 MG/0.5 ML SYRINGE IVPUSH ×2 (09:49→14:52)
[2022-02-16] MEDS: atenoloL 25 MG TABLET PO (09:49)
[2022-02-16] MEDS: 0.9 % Sodium Chloride Flush 3 ML SYRINGE IVFLUSH ×2 (14:52→20:45)
--- NOTE | 2022-02-16 15:46 | MHC.CM.PN ---
PT REPORTS SHE LIVES WITH HER AND IS INDEPENDENT WITH CARE PT DENIES USE OF DME OR HOME SERVICES PT REPORTS SHE BELIEVES SHE HAS A HCP NAMING HER DAUGHTER HER AGENT SHE WILL CHECK WITH HER DAUGHTER AND IS AWARE CM CAN ASSIST IN COMPLETION OF ONE AT ANY TIME DURING ADMISSION SHE REPORTS SHE IS COVID VAX X 4 AND WAS DUE TO GET ANOTHER BOOSTER BUT MISSED HER APPT DUE TO ADMISSION PCP: MARY ROSARIO IMM DELIVERED CURRENT DC PLAN IS HOME WITH NO SERVICES TO TRANSPORT
[2022-02-16 20:27] LABS: Glucose, Whole Blood 87 mg/dL (60-115)
[2022-02-16] MEDS: ondansetron HCL 4 MG/2 ML VIAL IVPUSH (20:42)
[2022-02-16] MEDS: Gabapentin 600 MG TABLET PO (22:03)
[2022-02-16] MEDS: Atorvastatin Calcium 20 MG TABLET PO (22:04)
[2022-02-17] MEDS: HYDROmorphone HCl 0.5 MG/0.5 ML SYRINGE IVPUSH ×4 (02:27→20:06)
[2022-02-17 04:00] VITALS: BP 131/77; PULSE 85; RESP 14; TEMP 37; O2SAT 96
[2022-02-17] MEDS: Levothyroxine Sodium 75 MCG TABLET PO (05:20)
[2022-02-17] MEDS: Piperacillin Sodium/Tazobactam 3.375 GM in 0.9 % Sodium Chloride 50 ML IV ×4 (05:20→22:16)
[2022-02-17] MEDS: Omeprazole 20 MG CAPSULE.DR PO (05:20)
[2022-02-17 06:01] LABS: MANUAL DIFF FLAG NO
[2022-02-17 06:09] LABS: Basophils Percent Auto 0.1 % (0-2); Eosinophils Absolute Auto 0.2 X10*3/uL (0.0-0.4); Eosinophils Percent Auto 1.6 % (0-4); Hematocrit 34.5 % (37.0-47.0); Hemoglobin 11.4 g/dl (12.0-16.0); Imm Gran Abs Auto 0.15 X10*3/uL (0.00-0.03); Imm Gran Pct Auto 1.3 % (0.0-0.4); Lymphocytes Absolute Auto 0.7 X10*3/uL (1.2-4.9); Mean Corpuscular Hemoglobin 30.6 pg (27.0-33.0); Mean Corpuscular Volume 92.7 fL (80.0-98.0); Mean Platelet Volume 10.2 fL (9.4-12.3); Monocytes Absolute Auto 0.8 X10*3/uL (0.1-1.2); Monocytes Percent Auto 6.8 % (2-11); Neutrophils Percent Auto 84.2 % (45-73); Platelet Count 232 X10*3/uL (160-400); Red Blood Count 3.72 X10*6/uL (4.20-5.50); Red Cell Distribution Width 12.4 % (11.0-16.0); White Blood Count 11.9 X10*3/uL (4.8-10.8)
[2022-02-17 07:36] VITALS: BP 140/78; PULSE 88; RESP 17; TEMP 37.1; O2SAT 98
--- NOTE | 2022-02-17 08:07 | P.CDIC_ITS ---
CDI Concurrent Query Documentation Clarification: PHYSICIAN'S DOCUMENTATION REQUEST Date of Query: 02/17/22 0808 Patient Name: Fide Edward Admit Date: 02/15/22 Dear Doctor, A review of the medical record indicates additional documentation may be needed. Please review below and update the documentation accordingly. Clinical Indicators: Documentation on ED progress note dated 02/15/22 included the diagnosis of Sepsis. The patient's infectious clinical indicators include: Risk Factors/Clinical Indicators/Treatments WBC 13.5 T 100.8 HR 95 Treated with IV Zosyn Recognized standard criteria for this condition and other infectious definitions includes: Sepsis Systemic manifestations of infection, with 2 or more SIRS criteria which include: * Fever > 100.4?F or hypothermia < 96.8?F * Leukocytosis ? WBC > 12,000 or leukopenia, WBC < 4,000, or > 10% bands * Tachycardia- > 90 beats/minute * Tachypnea- RR > 20 breaths/minute or PaCO2 < 32mmHg Source: [employer] Manual 2013 Documentation should include the known or suspected organism, and the underlying infection, such as UTI or pneumonia Based on the above information and the recognized standard for sepsis, could you please clarify in the Progress Notes if this diagnoses is still accurate and reflective of the patient's condition to ensure quality of the medical record. * Sepsis is/was present and is a clinical diagnosis based on (please include this additional support in the medical record) * After study, Sepsis has been ruled out * Other (please specify) * Unable to determine Use of terms such as suspected, likely, concern for, or probable (associated with a specific diagnosis that is being evaluated, monitored, or treated as if it exists) are acceptable and can be coded in the inpatient setting, when docu mented at the time of discharge. Thank you, Cony Wren RN Extension: [phone] Please use your independent medical judgment in providing your response. THIS QUERY IS PART OF THE PERMANENT MEDICAL RECORD Provider Response: Sepsis (Sepsis was present from perforated sigmoid diverticulitis with abscess)
--- NOTE | 2022-02-17 08:14 | PM.PNGS ---
Subjective Subjective Date of Service: 02/17/22 <Carole Zavala PA-C - Last Filed: 02/17/22 08:18> 02/17/22 <Vernon Gupta MD - Last Filed: 02/17/22 15:27> Interval history: Had increasing pain following eating solid food yesterday and vomited. Feels better this morning. <Carole Zavala PA-C - Last Filed: 02/17/22 08:18> Physical Exam Vital Signs: Vital Signs: Last Vital Signs Temp 98.7 F 02/17/22 07:36 Pulse 88 02/17/22 07:36 Resp 17 02/17/22 07:36 BP 140/78 H 02/17/22 07:36 Pulse Ox 98 02/17/22 07:36 O2 Del Method 02/17/22 07:36 BMI result Body Mass Index 22.8 <Carole Zavala PA-C - Last Filed: 02/17/22 08:18> Const: General: comfortable, no acute distress and alert <Carole Zavala PA-C - Last Filed: 02/17/22 08:18> Orientation/consciousness: patient oriented x3 <Carole Zavala PA-C - Last Filed: 02/17/22 08:18> Resp: Effort & Inspection: normal respiratory effort <Carole Zavala PA-C - Last Filed: 02/17/22 08:18> GI: Inspection: Yes distended (mild) <Carole Zavala PA-C - Last Filed: 02/17/22 08:18> Palpation (GI): Soft to palpation, Tenderness to palpation present (GI) (suprapubic) with no rebound tenderness, no guarding and not rigid <Carole Zavala PA-C - Last Filed: 02/17/22 08:18> Skin: General skin exam: no rashes or lesions noted <JESSICA Link Last Filed: 02/17/22 08:18> Neuro: General: patient oriented x3 <Carole Zavala PA-C - Last Filed: 02/17/22 08:18> Extrem: General: Yes no clubbing, cyanosis or edema <Carole Zavala PA-C - Last Filed: 02/17/22 08:18> Objective Data Active Medications Acetaminophen (Acetaminophen 325 Mg Tablet) 650 mg PO QID PRN PRN Reason: headache, temp > 101 Last Admin: 02/15/22 16:14 Dose: 650 mg Documented By: JELLY Atenolol (Atenolol 25 Mg Tablet) 25 mg PO DAILY [facility]; Protocol Last Admin: 02/16/22 09:49 Dose: 25 mg Documented By: VIRIDIANA Atorvastatin Calcium (Atorvastatin Calcium 20 Mg Tablet) 20 mg PO BEDTIME [facility] Last Admin: 02/16/22 22:04 Dose: 20 mg Documented By: ALINA Gabapentin (Gabapentin 600 Mg Tablet) 600 mg PO BEDTIME [facility] Last Admin: 02/16/22 22:03 Dose: 600 mg Documented By: ALINA Hydromorphone HCl (Hydromorphone Hcl 0.5 Mg/0.5 Ml Syringe) 0.5 mg IVPUSH Q3H PRN; Protocol PRN Reason: Pain, Severe (Pain Scale 7-10) Last Admin: 02/17/22 02:27 Dose: 0.5 mg Documented By: ALINA Piperacillin Sod/Tazobactam (Sod 3.375 gm/ Sodium Chloride) 50 mls @ 100 mls/hr IV Q6H [facility] Last Infusion: 02/17/22 05:52 Dose: 0 mls/hr Documented By: ALINA Levothyroxine Sodium (Levothyroxine Sodium 75 Mcg Tablet) 75 mcg PO DAILY@0630 [facility] Last Admin: 02/17/22 05:20 Dose: 75 mcg Documented By: ALINA Omeprazole (Omeprazole 20 Mg Capsule.Dr) 20 mg PO Q2D@0630 [facility] Last Admin: 02/17/22 05:20 Dose: 20 mg Documented By: ALINA Ondansetron HCl (Ondansetron Hcl 4 Mg/2 Ml Vial) 4 mg IVPUSH Q8H PRN PRN Reason: Nausea Last Admin: 02/16/22 20:42 Dose: 4 mg Documented By: ALINA Oxycodone HCl (Oxycodone Hcl Immed Release 5 Mg Tablet) 5 mg PO Q6H PRN PRN Reason: Pain, Moderate (Pain Scale 4-6 Last Admin: 02/15/22 21:25 Dose: 5 mg Documented By: ALINA Pharmacy Consult (Consult Rx Perform Med Rec) 1 each MISCELLANE ONCE PRN PRN Reason: Consult order Sodium Chloride (0.9 % Sodium Chloride Flush 3 Ml Syringe) 3 ml IVFLUSH QSHIFT JOSE Last Admin: 02/16/22 20:45 Dose: 3 ml Documented By: ALINA Zolpidem Tartrate (Zolpidem Tartrate 5 Mg Tablet) 5 mg PO BEDTIME PRN PRN Reason: Insomnia <Carole Zavala PA-C - Last Filed: 02/17/22 08:18> Labs CBC & Chem 7: : 02/17/22 05:53 02/15/22 07:23 <Carole Zavala PA-C - Last Filed: 02/17/22 08:18> Labs: Laboratory Results - last 24 hr 02/16/22 02/17/22 19:12 05:53 MCV 92.7 MCH 30.6 MCHC 33.0 RDW 12.4 Plt Count 232 MPV 10.2 Immature Gran % (Auto) 1.3 H Neut % (Auto) 84.2 H Lymph % (Auto) 6.0 L [place] % (Auto) 6.8 Eos % (Auto) 1.6 Baso % (Auto) 0.1 Lymph # (Auto) 0.7 L [place] # (Auto) 0.8 Eos # (Auto) 0.2 Baso # (Auto) 0.0 Abs Immat Gran (auto) 0.15 H Absolute Neuts (auto) 10.0 H Absolute Nucleated RBC 0.000 Nucleated RBC % (auto) 0.0 POC Glucose 87 <Carole Zavala PA-C - Last Filed: 02/17/22 08:18> Microbiology Microbiology Results: Microbiology 02/15/22 02:58 Blood Culture - Preliminary Blood - Venous No growth after 48 hours. 02/15/22 02:58 Blood Culture - Preliminary Blood - Venous No growth after 48 hours. <Carole Zavala PA-C - Last Filed: 02/17/22 08:18> Procedures Date of Service Date of Service: 02/17/22 <Carole Zavala PA-C - Last Filed: 02/17/22 08:18> Progress Note: A&P Assessment and plan (1) Diverticulitis: Status: Acute <Carole Zavala PA-C - Last Filed: 02/17/22 08:18> Assessment and Plan: 66 year old female admitted with uncomplicated diverticulitis, sepsis. Sepsis resolved. Initially doing well and advanced to solid diet yesterday but experienced increasing abd pain. VS- afebrile. Abd soft, suprapubic tenderness without peritoneal signs. Her WBC has improved this AM but will obtain f/u CT scan to reassess. If CT without worsening changes, can resume solid diet and prepare for discharge on PO abx. <Carole Zavala PA-C - Last Filed: 02/17/22 08:18> 66 year old female admitted with uncomplicated diverticulitis, sepsis. Sepsis resolved. Initially doing well and advanced to solid diet yesterday but experienced increasing abd pain. VS- afebrile. Abd soft, suprapubic tenderness without peritoneal signs. Her WBC has improved this AM but will obtain f/u CT scan to reassess. If CT without worsening changes, can resume solid diet and prepare for discharge on PO abx. CT reviewed with Dr. Green. Patient found to have an abscess in the pelvis containing fluid and gas. There may be other areas of loculated gas suggestive of a contained perforation. Patient is a candidate for IR drainage. Will make patient NPO after midnight and scheduled for drainage tomorrow. Discussed with patient and she agrees with the plan. <Vernon Gupta MD - Last Filed: 02/17/22 15:27> Time Spent With Patient Time: Total time spent is greater than 50% in coordination of care (as documented) at patient's floor/unit and/or counseling patient: <Carole Zavala PA-C - Last Filed: 02/17/22 08:18> Quality Stroke Does the patient have a stroke diagnosis?: No <Carole Zavala PA-C - Last Filed: 02/17/22 08:18> VTE Prior VTE?: No <JESSICA Link Last Filed: 02/17/22 08:18> VTE Risk Level:: Surgical - low <Carole Zavala PA-C - Last Filed: 02/17/22 08:18> VTE Device Contraindication: N/A - Device Ordered <Carole Zavala PA-C - Last Filed: 02/17/22 08:18> VTE Drug Contraindication: Treatment Not Indicated <Carole Zavala PA-C - Last Filed: 02/17/22 08:18>
[2022-02-17] MEDS: guaiFENesin DM 600/30 1 TAB TAB.ER.12H 2 TAB PO ×2 (08:51→19:24)
[2022-02-17] MEDS: atenoloL 25 MG TABLET PO (08:52)
[2022-02-17] MEDS: 0.9 % Sodium Chloride Flush 3 ML SYRINGE IVFLUSH ×2 (08:53→15:28)
[2022-02-17] MEDS: Barium Sulfate Oral (Berry) 450 ML ORAL.SUSP 900 ML PO (11:23)
[2022-02-17 11:33] VITALS: BP 130/79; PULSE 81; RESP 17; TEMP 37.2; O2SAT 97
[2022-02-17 15:47] VITALS: BP 125/80; PULSE 91; RESP 18; TEMP 36.6; O2SAT 98
[2022-02-17 16:42] LABS: INTERNATIONAL NORM RATIO 1.1 (0.9-1.1); Prothrombin Time 12.4 SEC (10.0-13.1)
[2022-02-17] MEDS: Atorvastatin Calcium 20 MG TABLET PO (20:07)
[2022-02-17] MEDS: Gabapentin 600 MG TABLET PO (20:07)
[2022-02-17 20:19] VITALS: BP 126/83; PULSE 92; RESP 18; TEMP 36.9; O2SAT 97
[2022-02-17] MEDS: oxyCODONE HCl Immed Release 5 MG TABLET PO (22:15)
[2022-02-18] VITALS (10 sets, daily range): BP systolic 108–125; BP diastolic 59–83; PULSE 70–87; RESP 15–18; TEMP 36–37.4; O2SAT 96–98
[2022-02-18] MEDS: HYDROmorphone HCl 0.5 MG/0.5 ML SYRINGE IVPUSH ×4 (01:53→19:46)
[2022-02-18] MEDS: 0.9 % Sodium Chloride Flush 3 ML SYRINGE IVFLUSH ×4 (01:57→19:47)
[2022-02-18] MEDS: Piperacillin Sodium/Tazobactam 3.375 GM in 0.9 % Sodium Chloride 50 ML IV ×3 (03:49→21:04)
[2022-02-18] MEDS: Levothyroxine Sodium 75 MCG TABLET PO (04:27)
[2022-02-18] MEDS: oxyCODONE HCl Immed Release 5 MG TABLET PO (04:27)
--- NOTE | 2022-02-18 07:47 | P.PNGS_ITS ---
Subjective Subjective Date of Service: 02/18/22 <Carole Zavala PA-C - Last Filed: 02/18/22 07:50> 02/18/22 <Vernon Gupta MD - Last Filed: 02/18/22 12:30> Interval history: Feeling a little better this morning, still has occasional crampy abd pain. Hungry. Diarrhea improved. Awaiting drainage. <Carole Zavala PA-C - Last Filed: 02/18/22 07:50> Physical Exam Vital Signs: Vital Signs: Last Vital Signs Temp 99.3 F 02/18/22 07:33 Pulse 80 02/18/22 07:33 Resp 18 02/18/22 07:33 BP 110/77 02/18/22 07:33 Pulse Ox 97 02/18/22 07:33 O2 Del Method 02/18/22 07:33 BMI result Body Mass Index 22.8 <Carole Zavala PA-C - Last Filed: 02/18/22 07:50> Const: General: comfortable, no acute distress, well developed and alert <Carole Zavala PA-C - Last Filed: 02/18/22 07:50> Orientation/consciousness: patient oriented x3 <Carole Zavala PA-C - Last Filed: 02/18/22 07:50> Resp: Effort & Inspection: normal respiratory effort <Carole Zavala PA-C - Last Filed: 02/18/22 07:50> GI: Inspection: No distended <Carole Zavala PA-C - Last Filed: 02/18/22 07:50> Palpation (GI): Soft to palpation, Tenderness to palpation present (GI) in the LLQ and suprapubicly; with no rebound tenderness, no guarding and not rigid <Carole Zavala PA-C - Last Filed: 02/18/22 07:50> Percussion: Yes normal to percussion <JESSICA Link Last Filed: 02/18/22 07:50> Skin: General skin exam: no rashes or lesions noted <Carole Zavala PA-C - Last Filed: 02/18/22 07:50> Neuro: General: patient oriented x3 <Carole Zavala PA-C - Last File d: 02/18/22 07:50> Extrem: General: Yes no clubbing, cyanosis or edema <Carole Zavala PA-C - Last Filed: 02/18/22 07:50> Objective Data Active Medications Acetaminophen (Acetaminophen 325 Mg Tablet) 650 mg PO QID PRN PRN Reason: headache, temp > 101 Last Admin: 02/15/22 16:14 Dose: 650 mg Documented By: JELLY Atenolol (Atenolol 25 Mg Tablet) 25 mg PO DAILY [facility]; Protocol Last Admin: 02/17/22 08:52 Dose: 25 mg Documented By: ANDREA Atorvastatin Calcium (Atorvastatin Calcium 20 Mg Tablet) 20 mg PO BEDTIME [facility] Last Admin: 02/17/22 20:07 Dose: 20 mg Documented By: DALTON Gabapentin (Gabapentin 600 Mg Tablet) 600 mg PO BEDTIME [facility] Last Admin: 02/17/22 20:07 Dose: 600 mg Documented By: DALTON Guaifenesin/Dextromethorphan (Guaifenesin Dm 600/30 1 Tab Tab.Er.12h) 2 tab PO BID PRN PRN Reason: Cough Last Admin: 02/17/22 19:24 Dose: 2 tab Documented By: DALTON Hydromorphone HCl (Hydromorphone Hcl 0.5 Mg/0.5 Ml Syringe) 0.5 mg IVPUSH Q3H PRN; Protocol PRN Reason: Pain, Severe (Pain Scale 7-10) Last Admin: 02/18/22 06:32 Dose: 0.5 mg Documented By: DALTON Piperacillin Sod/Tazobactam (Sod 3.375 gm/ Sodium Chloride) 50 mls @ 100 mls/hr IV Q6H [facility] Last Infusion: 02/18/22 04:24 Dose: 0 mls/hr Documented By: DALTON Levothyroxine Sodium (Levothyroxine Sodium 75 Mcg Tablet) 75 mcg PO DAILY@0630 [facility] Last Admin: 02/18/22 04:27 Dose: 75 mcg Documented By: DALTON Omeprazole (Omeprazole 20 Mg Capsule.Dr) 20 mg PO Q2D@0630 [facility] Last Admin: 02/17/22 05:20 Dose: 20 mg Documented By: ALINA Ondansetron HCl (Ondansetron Hcl 4 Mg/2 Ml Vial) 4 mg IVPUSH Q8H PRN PRN Reason: Nausea Last Admin: 02/16/22 20:42 Dose: 4 mg Documented By: ALINA Oxycodone HCl (Oxycodone Hcl Immed Release 5 Mg Tablet) 5 mg PO Q6H PRN PRN Reason: Pain, Moderate (Pain Scale 4-6 Last Admin: 02/18/22 04:27 Dose: 5 mg Documented By: DALTON Pharmacy Consult (Consult Rx Perform Med Rec) 1 each MISCELLANE ONCE PRN PRN Reason: Consult order Sodium Chloride (0.9 % Sodium Chloride Flush 3 Ml Syringe) 3 ml IVFLUSH QSHIFT [facility] Last Admin: 02/18/22 01:57 Dose: 3 ml Documented By: DALTON Zolpidem Tartrate (Zolpidem Tartrate 5 Mg Tablet) 5 mg PO BEDTIME PRN PRN Reason: Insomnia <Carole Zavala PA-C - Last Filed: 02/18/22 07:50> Labs CBC & Chem 7: : 02/17/22 05:53 02/15/22 07:23 <Carole Zavala PA-C - Last Filed: 02/18/22 07:50> Labs: Laboratory Results - last 24 hr 02/17/22 16:30 PT 12.4 INR 1.1 <Carole Zavala PA-C - Last Filed: 02/18/22 07:50> Microbiology Microbiology Results: Microbiology 02/15/22 02:58 Blood Culture - Preliminary Blood - Venous No growth after 48 hours. 02/15/22 02:58 Blood Culture - Preliminary Blood - Venous No growth after 48 hours. <Carole Zavala PA-C - Last Filed: 02/18/22 07:50> Procedures Date of Service Date of Service: 02/18/22 <JESSICA Link Last Filed: 02/18/22 07:50> Progress Note: A&P Assessment and plan (1) Diverticulitis of intestine with abscess: Status: Acute <JESSICA Link Last Filed: 02/18/22 07:50> Assessment and Plan: 66 year old female admitted with diverticulitis. Patient found to have an abscess in the pelvis containing fluid and gas on yesterdays repeat CT scan.?Plan for IR drainage this morning.?Cont IV zosyn. ? <Carole Zavala PA-C - Last Filed: 02/18/22 07:50> 66 year old female admitted with diverticulitis. Patient found to have an abscess in the pelvis containing fluid and gas on yesterdays repeat CT scan.?Plan for IR drainage this morning.?Cont IV zosyn. ? Update: Patient is now s/p IR drainage of pelvic abscess. She tolerated the procedure well and reports only mild soreness at the drain site. Agree with the above assessment and plan. Await culture results. Plan to repeat CT in 1-2 days. <Vernon Gupta MD - Last Filed: 02/18/22 12:30> Time Spent With Patient Time: Total time spent is greater than 50% in coordination of care (as documented) at patient's floor/unit and/or counseling patient: <Carole Zavala PA-C - Last Filed: 02/18/22 07:50> Quality Stroke Does the patient have a stroke diagnosis?: No <Carole Zavala PA-C - Last Filed: 02/18/22 07:50> VTE Prior VTE?: No <Carole Zavala PA-C - Last Filed: 02/18/22 07:50> VTE Risk Level:: Surgical - low <Carole Zavala PA-C - Last Filed: 02/18/22 07:50> VTE Device Contraindication: N/A - Device Ordered <Carole Zavala PA-C - Last Filed: 02/18/22 07:50> VTE Drug Contraindication: Treatment Not Indicated <Carole Zavala PA-C - Last Filed: 02/18/22 07:50>
[2022-02-18] MEDS: atenoloL 25 MG TABLET PO (08:19)
--- NOTE | 2022-02-18 11:45 | HO.RADPN ---
RADIOLOGY Narrative Narrative: 8.5 fr drain placed in right pelvic collection. 120 ml purulent fluid aspirated. Culture sent.
[2022-02-18] MEDS: Acetaminophen 325 MG TABLET 650 MG PO (18:27)
[2022-02-18] MEDS: Gabapentin 600 MG TABLET PO (19:46)
[2022-02-18] MEDS: Atorvastatin Calcium 20 MG TABLET PO (19:46)
[2022-02-18] MEDS: guaiFENesin DM 600/30 1 TAB TAB.ER.12H 2 TAB PO (19:50)
[2022-02-19] MEDS: HYDROmorphone HCl 0.5 MG/0.5 ML SYRINGE IVPUSH ×2 (01:58→19:37)
[2022-02-19 03:34] VITALS: BP 125/74; PULSE 80; RESP 18; TEMP 36.7; O2SAT 98
[2022-02-19] MEDS: Acetaminophen 325 MG TABLET 650 MG PO ×3 (03:36→19:15)
[2022-02-19] MEDS: Piperacillin Sodium/Tazobactam 3.375 GM in 0.9 % Sodium Chloride 50 ML IV ×4 (03:37→21:45)
[2022-02-19] MEDS: ondansetron HCL 4 MG/2 ML VIAL IVPUSH (03:40)
[2022-02-19] MEDS: Levothyroxine Sodium 75 MCG TABLET PO (05:58)
[2022-02-19] MEDS: Omeprazole 20 MG CAPSULE.DR PO (05:58)
[2022-02-19 07:36] VITALS: BP 115/78; PULSE 80; RESP 19; TEMP 36; O2SAT 94
[2022-02-19] MEDS: 0.9 % Sodium Chloride Flush 3 ML SYRINGE IVFLUSH ×3 (08:29→21:49)
[2022-02-19] MEDS: atenoloL 25 MG TABLET PO (08:29)
[2022-02-19] MEDS: oxyCODONE HCl Immed Release 5 MG TABLET PO ×3 (08:37→22:16)
--- NOTE | 2022-02-19 09:53 | P.PNGS_ITS ---
Subjective Subjective Date of Service: 02/19/22 <Carole Zavala PA-C - Last Filed: 02/19/22 09:59> 02/19/22 <Vernon Gupta MD - Last Filed: 02/19/22 13:21> Interval history: Feels much better overall but having crampy gas pains. No diarrhea since the other day. <Carole Zavala PA-C - Last Filed: 02/19/22 09:59> Physical Exam Vital Signs: Vital Signs: Last Vital Signs Temp 96.8 F 02/19/22 07:36 Pulse 80 02/19/22 07:36 Resp 19 02/19/22 07:36 BP 115/78 02/19/22 07:36 Pulse Ox 94 02/19/22 07:36 O2 Del Method 02/19/22 07:36 BMI result Body Mass Index 22.8 <Carole Zavala PA-C - Last Filed: 02/19/22 09:59> Const: General: comfortable, no acute distress and alert <Carole Zavala PA-C - Last Filed: 02/19/22 09:59> Orientation/consciousness: patient oriented x3 <Carole Zavlaa PA-C - Last Filed: 02/19/22 09:59> Resp: Effort & Inspection: normal respiratory effort <Carole Zavala PA-C - Last Filed: 02/19/22 09:59> GI: Inspection: No distended <Carole Zavala PA-C - Last Filed: 02/19/22 09:59> Palpation (GI): Soft to palpation, Tenderness to palpation present (GI) suprapubicly, no guarding and not rigid <Carole Zavala PA-C - Last Filed: 02/19/22 09:59> Percussion: Yes normal to percussion <JESSICA Link Last Filed: 02/19/22 09:59> Back/Spine/Pelvis: Other: pigtail drain intact, serosanguineous drainage in tubing, small amount of purulent output in bag <JESSICA Link Last Filed: 02/19/22 09:59> Skin: General skin exam: no rashes or lesions noted <aCrole Zavala PA-C - Last Filed: 02/19/22 09:59> Neuro: General: patient oriented x3 and moves all extremities <Carole Zavala PA-C - Last Filed: 02/19/22 09:59> Extrem: General: Yes no clubbing, cyanosis or edema <Carole Zavala PA-C - Last Filed: 02/19/22 09:59> Objective Data Active Medications Acetaminophen (Acetaminophen 325 Mg Tablet) 650 mg PO QID PRN PRN Reason: headache, temp > 101 Last Admin: 02/19/22 03:36 Dose: 650 mg Documented By: AUTUMN Atenolol (Atenolol 25 Mg Tablet) 25 mg PO DAILY [facility]; Protocol Last Admin: 02/19/22 08:29 Dose: 25 mg Documented By: AFSHAN Atorvastatin Calcium (Atorvastatin Calcium 20 Mg Tablet) 20 mg PO BEDTIME [facility] Last Admin: 02/18/22 19:46 Dose: 20 mg Documented By: AUTUMN Gabapentin (Gabapentin 600 Mg Tablet) 600 mg PO BEDTIME [facility] Last Admin: 02/18/22 19:46 Dose: 600 mg Documented By: AUTUMN Guaifenesin/Dextromethorphan (Guaifenesin Dm 600/30 1 Tab Tab.Er.12h) 2 tab PO BID PRN PRN Reason: Cough Last Admin: 02/18/22 19:50 Dose: 2 tab Documented By: AUTUMN Hydromorphone HCl (Hydromorphone Hcl 0.5 Mg/0.5 Ml Syringe) 0.5 mg IVPUSH Q3H PRN; Protocol PRN Reason: Pain, Severe (Pain Scale 7-10) Last Admin: 02/19/22 01:58 Dose: 0.5 mg Documented By: AUTUMN Piperacillin Sod/Tazobactam (Sod 3.375 gm/ Sodium Chloride) 50 mls @ 100 mls/hr IV Q6H [facility] Last Infusion: 02/19/22 04:11 Dose: 0 mls/hr Documented By: AUTUMN Levothyroxine Sodium (Levothyroxine Sodium 75 Mcg Tablet) 75 mcg PO DAILY@0630 [facility] Last Admin: 02/19/22 05:58 Dose: 75 mcg Documented By: AUTUMN Omeprazole (Omeprazole 20 Mg Capsule.Dr) 20 mg PO Q2D@0630 [facility] Last Admin: 02/19/22 05:58 Dose: 20 mg Documented By: AUTUMN Ondansetron HCl (Ondansetron Hcl 4 Mg/2 Ml Vial) 4 mg IVPUSH Q8H PRN PRN Reason: Nausea Last Admin: 02/19/22 03:40 Dose: 4 mg Documented By: AUTUMN Oxycodone HCl (Oxycodone Hcl Immed Release 5 Mg Tablet) 5 mg PO Q6H PRN PRN Reason: Pain, Moderate (Pain Scale 4-6 Last Admin: 02/19/22 08:37 Dose: 5 mg Documented By: AFSHAN Pharmacy Consult (Consult Rx Perform Med Rec) 1 each MISCELLANE ONCE PRN PRN Reason: Consult order Simethicone (Simethicone 80 Mg Tab.Chew) 80 mg PO QIDWMHS PRN PRN Reason: Gas Sodium Chloride (0.9 % Sodium Chloride Flush 3 Ml Syringe) 3 ml IVFLUSH QSHIFT [facility] Last Admin: 02/19/22 08:29 Dose: 3 ml Documented By: AFSHAN Zolpidem Tartrate (Zolpidem Tartrate 5 Mg Tablet) 5 mg PO BEDTIME PRN PRN Reason: Insomnia <JESSICA Link Last Filed: 02/19/22 09:59> Labs CBC & Chem 7: : 02/17/22 05:53 02/15/22 07:23 <JESSICA Link Last Filed: 02/19/22 09:59> Microbiology Microbiology Results: Microbiology 02/18/22 10:58 Gram Stain - Final Abscess Intra-abdominal <JESSICA Link Last Filed: 02/19/22 09:59> Procedures Date of Service Date of Service: 02/19/22 <JESSICA Link Last Filed: 02/19/22 09:59> Progress Note: A&P Assessment and plan (1) Diverticulitis of intestine with abscess: Status: Acute <JESSICA Link Last Filed: 02/19/22 09:59> Assessment and Plan: 66 year old female admitted with diverticulitis with abscess. Underwent IR drainage yesterday with 120 mL of bet[place] purulent drainage aspirated. Drain left in place. Feeling overall improved, c/o gas pains this morning. VSS. Abd exam is improved with less suprapubic tenderness, drain intact with mostly serosanguineous output now. Cont IV zosyn, await cultures/sensitivities from abscess. Likely home tomorrow on course of PO abx if cultures resulted, most likely with drain in place. Patient comfortable with plan. Simethicone added. <Carole Zavala PA-C - Last Filed: 02/19/22 09:59> 66 year old female admitted with diverticulitis with abscess. Underwent IR drainage yesterday with 120 mL of bet[place]ourt purulent drainage aspirated. Drain left in place. Feeling overall improved, c/o gas pains this morning. VSS. Abd exam is improved with less suprapubic tenderness, drain intact with mostly serosanguineous output now. Cont IV zosyn, await cultures/sensitivities from abscess. Likely home tomorrow on course of PO abx if cultures resulted, most likely with drain in place. Patient comfortable with plan. Simethicone added. Patient tolerated abscess drainage well yesterday and remains relatively comf ortable. She does have some localized tenderness from the drain site. She reports some gas pain this morning but has passed a significant amount which improved her discomfort. Agree with the above assessment and plan. Will repeat CT of pelvis Tomorrow prior to discharge the follow-up adequacy of drain placement. <Vernon Gupta MD - Last Filed: 02/19/22 13:21> Time Spent With Patient Time: Total time spent is greater than 50% in coordination of care (as documented) at patient's floor/unit and/or counseling patient: <Carole Zavala PA-C - Last Filed: 02/19/22 09:59> Quality Stroke Does the patient have a stroke diagnosis?: No <Carole Zavala PA-C - Last Filed: 02/19/22 09:59> VTE Prior VTE?: No <Carole Zavala PA-C - Last Filed: 02/19/22 09:59> VTE Risk Level:: Surgical - low <Carole Zavala PA-C - Last Filed: 02/19/22 09:59> VTE Device Contraindication: N/A - Device Ordered <Carole Zavala PA-C - Last Filed: 02/19/22 09:59> VTE Drug Contraindication: Treatment Not Indicated <Carole Zavala PA-C - Last Filed: 02/19/22 09:59>
[2022-02-19 11:13] VITALS: BP 108/74; PULSE 72; RESP 18; TEMP 36.4; O2SAT 99
--- NOTE | 2022-02-19 12:30 | MHC.CLN ---
NUTRITION CONSULT FOR LOW/HIGH FIBER DIET. CURRENT DIET IS REGULAR, LOW FIBER. DX DIVERTICULITIS WITH ABSCESS. PATIENT STATED THAT FIRST TIME WITH DIVERTICULITIS. NEEDED BASIC INFORMATION ON LOW FIBER AND HIGH FIBER FOODS. PROVIDED HANDOUTS FROM AND DIET MANUAL AND DISCUSSED HEALTHFUL DIET.
--- NOTE | 2022-02-19 12:59 | MHC.CM.PN ---
EMR REVIEWED, PER SURGICAL PT MAY BE ABLE TO DC/ TOMORROW OENDING ABSCESS CULTURE RESULTS, CM MET W/PT WHO REPORTS SHE WOULD LIKE A VNA AND PREFERS [facility] SHE HAS HAD THEM IN THE PAST. CM MET W/PT TO COMPLETE A HCP, PT NAMED HER DTR KESHA STEPHENSON [phone] HER [facility] AND NO ALTERNATE, PT PROVIDED EDUCATIONAL HANDOUTS, ORIGINAL AND 2 COPIES, COPY UPLOADED TO [employer] AND PLACED IN CHART W/PT PERMISSION. CM WILL CONT TO FOLLOW D/C NEEDS
[2022-02-19] MEDS: Simethicone 80 MG TAB.CHEW PO (13:44)
[2022-02-19 16:00] VITALS: BP 112/66; PULSE 82; RESP 18; TEMP 37.1; O2SAT 97
[2022-02-19 19:07] VITALS: BP 115/71; PULSE 82; RESP 20; TEMP 37.7; O2SAT 97
[2022-02-19] MEDS: Atorvastatin Calcium 20 MG TABLET PO (19:15)
[2022-02-19] MEDS: Gabapentin 600 MG TABLET PO (19:15)
[2022-02-19] MEDS: guaiFENesin DM 600/30 1 TAB TAB.ER.12H 2 TAB PO (19:39)
[2022-02-19] MEDS: Docusate Sodium 100 MG CAPSULE PO (21:45)
[2022-02-19] MEDS: Nortriptyline HCl 25 MG CAPSULE PO (22:16)
[2022-02-19 23:55] VITALS: BP 109/71; PULSE 74; RESP 18; TEMP 36.2; O2SAT 95
[2022-02-20 03:52] VITALS: BP 115/81; PULSE 82; RESP 18; TEMP 36.4; O2SAT 97
[2022-02-20] MEDS: Piperacillin Sodium/Tazobactam 3.375 GM in 0.9 % Sodium Chloride 50 ML IV ×4 (03:52→20:48)
[2022-02-20] MEDS: Levothyroxine Sodium 75 MCG TABLET PO (05:53)
[2022-02-20] MEDS: oxyCODONE HCl Immed Release 5 MG TABLET PO ×3 (05:54→20:46)
[2022-02-20] MEDS: Acetaminophen 325 MG TABLET 650 MG PO ×3 (05:55→20:45)
--- NOTE | 2022-02-20 06:00 | PC.NURSE ---
Addendum entered by Sally Aquino RN 02/20/22 06:05: At 0600 pt continues to c/o double vision in right eye, [employer] message sent to Dr. Nicole MD aware. Original Note: At 1920 on 02/19/22 pt c/o double vision in right eye, [employer] message sent to Dr. Rivera. aware. Pt also requested a stool softener for constipation and nortriptyline for her ongoing headache. Colace and nortriptyline ordered by Dr. Rivera and administered by this RN.
[2022-02-20 06:27] LABS: MANUAL DIFF FLAG NO
[2022-02-20 06:41] LABS: Basophils Percent Auto 0.3 % (0-2); Eosinophils Absolute Auto 0.1 X10*3/uL (0.0-0.4); Eosinophils Percent Auto 1.1 % (0-4); Hematocrit 35.3 % (37.0-47.0); Hemoglobin 11.4 g/dl (12.0-16.0); Imm Gran Abs Auto 0.17 X10*3/uL (0.00-0.03); Imm Gran Pct Auto 1.5 % (0.0-0.4); Lymphocytes Absolute Auto 1.6 X10*3/uL (1.2-4.9); Lymphocytes Percent Auto 13.6 % (20-40); Mean Corpuscular HGB Conc 32.3 g/dl (31.0-35.0); Mean Corpuscular Volume 89.8 fL (80.0-98.0); Mean Platelet Volume 10.1 fL (9.4-12.3); Monocytes Absolute Auto 0.9 X10*3/uL (0.1-1.2); Monocytes Percent Auto 7.5 % (2-11); Neutrophils Absolute Auto 8.9 x10*3/uL (2.0-8.3); Platelet Count 309 X10*3/uL (160-400); Red Blood Count 3.93 X10*6/uL (4.20-5.50); Red Cell Distribution Width 12.4 % (11.0-16.0); White Blood Count 11.7 X10*3/uL (4.8-10.8)
[2022-02-20 07:36] VITALS: BP 121/78; PULSE 76; RESP 16; TEMP 36.3; O2SAT 97
--- NOTE | 2022-02-20 07:58 | P.PNGS_ITS ---
Subjective Subjective Date of Service: 02/20/22 Interval history: Patient complains of diplopia which started yesterday with no inciting events. Abdomen feels ok; pain at drain site. No bm for two days. Appetite is ok, but she is afraid to eat. Physical Exam Vital Signs: Vital Signs: Last Vital Signs Temp 97.3 F 02/20/22 07:36 Pulse 76 02/20/22 07:36 Resp 16 02/20/22 07:36 BP 121/78 02/20/22 07:36 Pulse Ox 97 02/20/22 07:36 O2 Del Method 02/20/22 07:36 BMI result Body Mass Index 22.8 Const: General: no acute distress Orientation/consciousness: patient oriented x3 Limitations: no limitations HEENT: Head: Yes normocephalic and Yes atraumatic Eyes: Alignment and Position: alignment abnormal left (seems deviated laterally) Eyelids: Yes eyelids normal EOM: EOMs intact bilaterally Resp: Effort & Inspection: normal respiratory effort, no stridor and not tachypneic GI: Inspection: Yes normal to inspection Palpation (GI): Soft to palpation, nontender and no guarding Percussion: Yes normal to percussion Skin: General skin exam: no rashes or lesions noted Neuro: General: patient oriented x3 Extrem: General: Yes no clubbing, cyanosis or edema Objective Data Active Medications Acetaminophen (Acetaminophen 325 Mg Tablet) 650 mg PO QID PRN PRN Reason: headache, temp > 101 Last Admin: 02/20/22 05:55 Dose: 650 mg Documented By: AUTUMN Atenolol (Atenolol 25 Mg Tablet) 25 mg PO DAILY REPLACED BY [facility]; Protocol Last Admin: 02/19/22 08:29 Dose: 25 mg Documented By: AFSHAN Atorvastatin Calcium (Atorvastatin Calcium 20 Mg Tablet) 20 mg PO BEDTIME REPLACED BY [facility] Last Admin: 02/19/22 19:15 Dose: 20 mg Documented By: AUTUMN Docusate Sodium (Docusate Sodium 100 Mg Capsule) 100 mg PO BID REPLACED BY [facility] Last Admin: 02/19/22 21:45 Dose: 100 mg Documented By: AUTUMN Gabapentin (Gabapentin 600 Mg Tablet) 600 mg PO BEDTIME REPLACED BY [facility] Last Admin: 02/19/22 19:15 Dose: 600 mg Documented By: AUTUMN Guaifenesin/Dextromethorphan (Guaifenesin Dm 600/30 1 Tab Tab.Er.12h) 2 tab PO BID PRN PRN Reason: Cough Last Admin: 02/19/22 19:39 Dose: 2 tab Documented By: AUTUMN Hydromorphone HCl (Hydromorphone Hcl 0.5 Mg/0.5 Ml Syringe) 0.5 mg IVPUSH Q3H PRN; Protocol PRN Reason: Pain, Severe (Pain Scale 7-10) Last Admin: 02/19/22 19:37 Dose: 0.5 mg Documented By: AUTUMN Piperacillin Sod/Tazobactam (Sod 3.375 gm/ Sodium Chloride) 50 mls @ 100 mls/hr IV Q6H REPLACED BY [facility] Last Infusion: 02/20/22 04:27 Dose: 0 mls/hr Documented By: AUTUMN Levothyroxine Sodium (Levothyroxine Sodium 75 Mcg Tablet) 75 mcg PO DAILY@0630 REPLACED BY [facility] Last Admin: 02/20/22 05:53 Dose: 75 mcg Documented By: AUTUMN Omeprazole (Omeprazole 20 Mg Capsule.Dr) 20 mg PO Q2D@0630 REPLACED BY [facility] Last Admin: 02/19/22 05:58 Dose: 20 mg Documented By: AUTUMN Ondansetron HCl (Ondansetron Hcl 4 Mg/2 Ml Vial) 4 mg IVPUSH Q8H PRN PRN Reason: Nausea Last Admin: 02/19/22 03:40 Dose: 4 mg Documented By: AUTUMN Oxycodone HCl (Oxycodone Hcl Immed Release 5 Mg Tablet) 5 mg PO Q6H PRN PRN Reason: Pain, Moderate (Pain Scale 4-6 Last Admin: 02/20/22 05:54 Dose: 5 mg Documented By: AUTUMN Pharmacy Consult (Consult Rx Perform Med Rec) 1 each MISCELLANE ONCE PRN PRN Reason: Consult order Simethicone (Simethicone 80 Mg Tab.Chew) 80 mg PO QIDWMHS PRN PRN Reason: Gas Last Admin: 02/19/22 13:44 Dose: 80 mg Documented By: AFSHAN Sodium Chloride (0.9 % Sodium Chloride Flush 3 Ml Syringe) 3 ml IVFLUSH QSHIFT REPLACED BY [facility] Last Admin: 02/19/22 21:49 Dose: 3 ml Documented By: OSVALDOQC Zolpidem Tartrate (Zolpidem Tartrate 5 Mg Tablet) 5 mg PO BEDTIME PRN PRN Reason: Insomnia Labs CBC & Chem 7: 02/20/22 05:38 02/15/22 07:23 Labs: Laboratory Results - last 24 hr 02/20/22 05:38 MCV 89.8 MCH 29.0 MCHC 32.3 RDW 12.4 Plt Count 309 D MPV 10.1 Immature Gran % (Auto) 1.5 H Neut % (Auto) 76.0 H Lymph % (Auto) 13.6 L [place] % (Auto) 7.5 Eos % (Auto) 1.1 Baso % (Auto) 0.3 Lymph # (Auto) 1.6 [place] # (Auto) 0.9 Eos # (Auto) 0.1 Baso # (Auto) 0.0 Abs Immat Gran (auto) 0.17 H Absolute Neuts (auto) 8.9 H Absolute Nucleated RBC 0.000 Nucleated RBC % (auto) 0.0 Microbiology Microbiology Results: Microbiology 02/15/22 02:58 Blood Culture - Final Blood - Venous No growth after 5 days. 02/15/22 02:58 Blood Culture - Final Blood - Venous No growth after 5 days. 02/18/22 10:58 Gram Stain - Final Abscess Intra-abdominal Routine Culture - Preliminary Culture in progress. Anaerobic Culture - Preliminary Culture in progress. Procedures Date of Service Date of Service: 02/20/22 Progress Note: A&P Assessment and plan (1) Diplopia: Status: Acute Assessment and Plan: 66 year old female admitted for sigmoid diverticulitis, history of hypothyroid, now with new onset diplopia. No new meds other than simethicone started yesterday. ? gabapentin although she has been on this medication. Will request hospitalist consult. Head CT requested. (2) Diverticulitis of intestine with abscess: Status: Acute Assessment and Plan: Overall patient is improved after IR drainage. WBC remains mildly elevated. Abdomen is soft with mild tenderness at the lower abdomen. Will repeat abd and pelvic CT today to follow up abscess drainage. Time Spent With Patient Time: Total time spent is greater than 50% in coordination of care (as documented) at patient's floor/unit and/or counseling patient: Quality Stroke Does the patient have a stroke diagnosis?: No VTE Prior VTE?: No VTE Risk Level:: Surgical - low VTE Device Contraindication: N/A - Device Ordered VTE Drug Contraindication: Treatment Not Indicated
[2022-02-20] MEDS: atenoloL 25 MG TABLET PO (08:48)
[2022-02-20] MEDS: 0.9 % Sodium Chloride Flush 3 ML SYRINGE IVFLUSH ×3 (08:48→23:54)
[2022-02-20] MEDS: Docusate Sodium 100 MG CAPSULE PO ×2 (08:48→20:46)
--- NOTE | 2022-02-20 10:03 | PC.NURSE ---
Assumed care of patient at this time.
--- NOTE | 2022-02-20 10:30 | PC.NURSE ---
Patient finished drinking PO contrast for CT at this time. Radiology called and aware.
--- NOTE | 2022-02-20 10:31 | P.CNNE_ITS ---
History of Present Illness Data of Consult Service Date: 02/20/22 Primary Care Provider: Mami Wang MD HPI Reason for consult: Double vision 66 years old woman who was admitted in hospital for abdominal problems and probably related to diverticulitis for which she was being treated. Last night or last evening she developed a right-sided headache and suddenly noted that she was seeing double. She was seeing images [id number]. There was no mental confusion or speech or language difficulty nausea or vomiting. She said that headache was somewhat new thing for her and she did not have any significant headaches in the past. I saw her in the morning and she still was having mild headache on the right side. She was still seeing double stating that it has not changed. Review of Systems Review of Systems: No recent cold or flu-like illness. [facility] Past Medical History Medical History (Updated 02/20/22 @ 08:03 by Vernon Gupta MD) Acquired hypothyroidism Dyslipidemia Essential hypertension Fatigue Restless leg syndrome Surgical History Surgical History (Updated 02/15/22 @ 08:43 by Vernon Gupta MD) Hx laparoscopic cholecystectomy (07/04/96) Social History Social History Household Members: Spouse [facility] Do you presently have visiting nurse or other home services: No Patient Tobacco Use Status: Former Tobacco user Years Smoked: 25 yrs e-Cigarette/Vaping Use: Never Used service: No Current occupational status: retired Cognitive needs: No Hearing needs: No Vision needs: No Meds Allergies Allergy/AdvReac Type Severity Reaction Status Date / Time No Known Allergies Allergy Mild NOT Verified 10/31/21 10:10 APPLICABLE Active Medications: Current Medications Acetaminophen (Acetaminophen 325 Mg Tablet) 650 mg PO QID PRN PRN Reason: headache, temp > 101 Last Admin: 02/20/22 05:55 Dose: 650 mg Atenolol (Atenolol 25 Mg Tablet) 25 mg PO DAILY [facility]; Protocol Last Admin: 02/20/22 08:48 Dose: 25 mg Atorvastatin Calcium (Atorvastatin Calcium 20 Mg Tablet) 20 mg PO BEDTIME [facility] Last Admin: 02/19/22 19:15 Dose: 20 mg Docusate Sodium (Docusate Sodium 100 Mg Capsule) 100 mg PO BID [facility] Last Admin: 02/20/22 08:48 Dose: 100 mg Gabapentin (Gabapentin 600 Mg Tablet) 600 mg PO BEDTIME [facility] Last Admin: 02/19/22 19:15 Dose: 600 mg Guaifenesin/Dextromethorphan (Guaifenesin Dm 600/30 1 Tab Tab.Er.12h) 2 tab PO BID PRN PRN Reason: Cough Last Admin: 02/19/22 19:39 Dose: 2 tab Hydromorphone HCl (Hydromorphone Hcl 0.5 Mg/0.5 Ml Syringe) 0.5 mg IVPUSH Q3H PRN; Protocol PRN Reason: Pain, Severe (Pain Scale 7-10) Last Admin: 02/19/22 19:37 Dose: 0.5 mg Piperacillin Sod/Tazobactam (Sod 3.375 gm/ Sodium Chloride) 50 mls @ 100 mls/hr IV Q6H [facility] Last Admin: 02/20/22 10:17 Dose: 100 mls/hr Levothyroxine Sodium (Levothyroxine Sodium 75 Mcg Tablet) 75 mcg PO DAILY@0630 [facility] Last Admin: 02/20/22 05:53 Dose: 75 mcg Omeprazole (Omeprazole 20 Mg Capsule.Dr) 20 mg PO Q2D@0630 [facility] Last Admin: 02/19/22 05:58 Dose: 20 mg Ondansetron HCl (Ondansetron Hcl 4 Mg/2 Ml Vial) 4 mg IVPUSH Q8H PRN PRN Reason: Nausea Last Admin: 02/19/22 03:40 Dose: 4 mg Oxycodone HCl (Oxycodone Hcl Immed Release 5 Mg Tablet) 5 mg PO Q6H PRN PRN Reason: Pain, Moderate (Pain Scale 4-6 Last Admin: 02/20/22 05:54 Dose: 5 mg Pharmacy Consult (Consult Rx Perform Med Rec) 1 each MISCELLANE ONCE PRN PRN Reason: Consult order Simethicone (Simethicone 80 Mg Tab.Chew) 80 mg PO QIDWMHS PRN PRN Reason: Gas Last Admin: 02/19/22 13:44 Dose: 80 mg Sodium Chloride (0.9 % Sodium Chloride Flush 3 Ml Syringe) [facility] Last Admin: 02/20/22 08:48 Dose: 3 ml Zolpidem Tartrate (Zolpidem Tartrate 5 Mg Tablet) 5 mg PO BEDTIME PRN PRN Reason: Insomnia Home Medications Medication Instructions Recorded Confirmed Last Taken Type cholecalciferol (vitamin D3) 25 25 mcg PO DAILY 01/25/21 02/15/22 02/14/22 Hist ory mcg (1,000 unit) capsule omeprazole 20 mg capsule,delayed 20 mg PO Q2D@0630 01/25/21 02/15/22 02/14/22 History release vitamin E mixed 400 unit capsule 400 unit PO DAILY 01/25/21 02/15/22 02/14/22 History Ca 600 mg-D3 20 mcg-mag oxide 50 1 tab PO DAILY 02/15/22 02/15/22 02/14/22 History iy-Hg-tvpfcz-manganese-boron tablet (Calcium 600-D3 Plus (mag-zinc)) levothyroxine 75 mcg tablet 75 mcg PO DAILY@0630 02/15/22 02/15/22 02/14/22 History oxycodone-acetaminophen 5 mg-325 1 tab PO QID PRN pain 02/15/22 02/15/22 02/14/22 History mg tablet rosuvastatin 5 mg tablet 5 mg PO BEDTIME 02/15/22 02/15/22 02/14/22 History Physical Exam Vital Signs: Vital Signs: Last Vital Signs Temp 97.3 F 02/20/22 07:36 Pulse 76 02/20/22 07:36 Resp 16 02/20/22 07:36 BP 121/78 02/20/22 07:36 Pulse Ox 97 02/20/22 07:36 O2 Del Method 02/20/22 07:36 BMI result Body Mass Index 22.8 Neuro: Other: She was alert and awake with normal spontaneity of speech fluency comprehension and affect. Right pupil was about 3-4 mm and left 2-3 mm round reactive. The difference was same in somewhat bright and dim light. There was no ptosis. Extraocular muscle seems to be okay with no obvious lag. She was seeing double when looking to the left and it was worse in left lower field of vision. In that position when she covered right eye outer imaged disappears and when she covered left eye in her image disappeared. Speech was normal. There was no pronator drift. Finger to nose testing was normal. Plantars were equivocal. Deep tendon reflexes were 2+ Results Labs CBC & Chem 7: 02/20/22 05:38 02/15/22 07:23 Labs: Short CBC 02/20/22 Range/Units 05:38 WBC 11.7 H (4.8-10.8) X10*3/uL Hgb 11.4 L (12.0-16.0) g/dl Hct 35.3 L (37.0-47.0) % Plt Count 309 D (160-400) X10*3/uL Noncontrast head CT revealed mild microvascular ischemic disease Microbiology Microbiology Results: Microbiology 02/18/22 10:58 Abscess Intra-abdominal Gram Stain - Final 02/18/22 10:58 Abscess Intra-abdominal Routine Culture - Preliminary Gram negative cadence 02/18/22 10:58 Abscess Intra-abdominal Anaerobic Culture - Preliminary Culture in progress. 02/15/22 02:58 Blood - Venous Blood Culture - Final No growth after 5 days. 02/15/22 02:58 Blood - Venous Blood Culture - Final No growth after 5 days. Assessment and Plan (1) Diplopia: Status: Acute 66 years old woman being treated for diverticulitis developed double vision me yesterday with right-sided headache. Her examination revealed un equal pupils with right pupil slightly larger than left. There was no ptosis. In a quality of pupil was either her baseline or part of the pathology causing double vision. If that would be the case, I would be concerned about partial 3rd nerve palsy on the right side from surgical lesion. A CTA of brain is recommended to rule out cerebral aneurysm. Alternatively, inequality of people could be her baseline and she might just be having mild cranial neuropathy resulting in diplopia. A brainstem infarct was another possibility. Neuromuscular disease was another possibility but there was no obvious indication of that. At this point I recommend CTA of brain and noncontrast MRI of brain to 1st look at pathologies that might require urgent attention. Procedures Date of Service Date of Service: 02/20/22
[2022-02-20 10:45] LABS: Anion Gap 14 (12-20); Blood Urea Nitrogen 6 mg/dL (9-16); Calcium 9.1 mg/dL (8.4-10.2); Carbon Dioxide 28 mmol/L (22-29); Chloride 97 mmol/L (96-108); Creatinine Clr Calc Pharmacy 78.1; Estimated Glomerular Filt Rate > 60; Glucose Random 95 mg/dL (60-115); Potassium 3.4 mmol/L (3.3-5.1); Sodium 136 mmol/L (135-145)
[2022-02-20 11:36] VITALS: BP 127/74; PULSE 74; RESP 16; TEMP 36.3; O2SAT 98
--- NOTE | 2022-02-20 11:50 | PC.NURSE ---
Patient to CT at this time
[2022-02-20] MEDS: iohexoL 350 MG/ML 100 ML INFUS..BTL IV (12:55)
[2022-02-20] MEDS: Barium Sulfate Oral (Berry) 450 ML ORAL.SUSP 900 ML PO (13:39)
[2022-02-20] MEDS: Simethicone 80 MG TAB.CHEW PO ×2 (13:55→20:46)
--- NOTE | 2022-02-20 14:23 | PC.NURSE ---
Patient transported to MRI at this time via transportation technician; MRI screening form completed and faxed to MRI dept.
[2022-02-20 15:30] VITALS: BP 116/69; PULSE 78; RESP 20; TEMP 36.6; O2SAT 97
--- NOTE | 2022-02-20 16:03 | P.CONHOSP_ITS ---
History of Present Illness Data of Consult Service Date: 02/20/22 Primary Care Provider: Mami Wang MD HPI Reason for consult: Diplopia 66 year old female with Acquired hypothyroidism, Dyslipidemia, Essential hypertension, chronic Fatigue, Restless leg syndrome sigmoid diverticulitis s/p IR drainage and asked to assess for diplopia. Since yesterday she states she's been having double vision since yesterday evening and only made us aware toda.. She states that she thinks her problem is in the left eye and is intermittent but more often than not. She has no other neurological deficit. BP ok, I requested a state CT of head which is without acute process and Neurology also asked to see him. She further had CTA of brain without acute finding and similarly MRI of the head show no acute finding. Review of Systems Review of Systems: Double vision no weakness, no speech changes no, no dark vision [facility] Medical History (Updated 02/20/22 @ 08:03 by Vernon Gupta MD) Acquired hypothyroidism Dyslipidemia Essential hypertension Fatigue Restless leg syndrome Surgical History (Updated 02/15/22 @ 08:43 by Vernon Gupta MD) Hx laparoscopic cholecystectomy (07/04/96) Social History Household Members: Spouse Housing: Condominium Do you presently have visiting nurse or other home services: No Patient Tobacco Use Status: Former Tobacco user Years Smoked: 25 yrs e-Cigarette/Vaping Use: Never Used service: No Current occupational status: retired Cognitive needs: No Hearing needs: No Vision needs: No Meds Allergies Allergy/AdvReac Type Severity Reaction Status Date / Time No Known Allergies Allergy Mild NOT Verified 10/31/21 10:10 APPLICABLE Active Medications: Current Medications Acetaminophen (Acetaminophen 325 Mg Tablet) 650 mg PO QID PRN PRN Reason: headache, temp > 101 Last Admin: 02/20/22 13:55 Dose: 650 mg Atenolol (Atenolol 25 Mg Tablet) 25 mg PO DAILY [facility]; Protocol Last Admin: 02/20/22 08:48 Dose: 25 mg Atorvastatin Calcium (Atorvastatin Calcium 20 Mg Tablet) 20 mg PO BEDTIME [facility] Last Admin: 02/19/22 19:15 Dose: 20 mg Docusate Sodium (Docusate Sodium 100 Mg Capsule) 100 mg PO BID [facility] Last Admin: 02/20/22 08:48 Dose: 100 mg Gabapentin (Gabapentin 600 Mg Tablet) 600 mg PO BEDTIME [facility] Last Admin: 02/19/22 19:15 Dose: 600 mg Guaifenesin/Dextromethorphan (Guaifenesin Dm 600/30 1 Tab Tab.Er.12h) 2 tab PO BID PRN PRN Reason: Cough Last Admin: 02/19/22 19:39 Dose: 2 tab Hydromorphone HCl (Hydromorphone Hcl 0.5 Mg/0.5 Ml Syringe) 0.5 mg IVPUSH Q3H PRN; Protocol PRN Reason: Pain, Severe (Pain Scale 7-10) Last Admin: 02/19/22 19:37 Dose: 0.5 mg Piperacillin Sod/Tazobactam (Sod 3.375 gm/ Sodium Chloride) 50 mls @ 100 mls/hr IV Q6H [facility] Last Infusion: 02/20/22 11:13 Dose: Infused Levothyroxine Sodium (Levothyroxine Sodium 75 Mcg Tablet) 75 mcg PO DAILY@0630 [facility] Last Admin: 02/20/22 05:53 Dose: 75 mcg Omeprazole (Omeprazole 20 Mg Capsule.Dr) 20 mg PO Q2D@0630 [facility] Last Admin: 02/19/22 05:58 Dose: 20 mg Ondansetron HCl (Ondansetron Hcl 4 Mg/2 Ml Vial) 4 mg IVPUSH Q8H PRN PRN Reason: Nausea Last Admin: 02/19/22 03:40 Dose: 4 mg Oxycodone HCl (Oxycodone Hcl Immed Release 5 Mg Tablet) 5 mg PO Q6H PRN PRN Reason: Pain, Moderate (Pain Scale 4-6 Last Admin: 02/20/22 13:55 Dose: 5 mg Pharmacy Consult (Consult Rx Perform Med Rec) 1 each MISCELLANE ONCE PRN PRN Reason: Consult order Simethicone (Simethicone 80 Mg Tab.Chew) 80 mg PO QIDWMHS PRN PRN Reason: Gas Last Admin: 02/20/22 13:55 Dose: 80 mg Sodium Chloride (0.9 % Sodium Chloride Flush 3 Ml Syringe) 3 ml IVFLUSH QSHIFT [facility] Last Admin: 02/20/22 08:48 Dose: 3 ml Zolpidem Tartrate (Zolpidem Tartrate 5 Mg Tablet) 5 mg PO BEDTIME PRN PRN Reason: Insomnia Home Medications Medication Instructions Recorded Confirmed Last Taken Type cholecalciferol (vitamin D3) 25 25 mcg PO DAILY 01/25/21 02/15/22 02/14/22 History mcg (1,000 unit) capsule omeprazole 20 mg capsule,delayed 20 mg PO Q2D@0630 01/25/21 02/15/22 02/14/22 History release vitamin E mixed 400 unit capsule 400 unit PO DAILY 01/25/21 02/15/22 02/14/22 History Ca 600 mg-D3 20 mcg-mag oxide 50 1 tab PO DAILY 02/15/22 02/15/22 02/14/22 History ys-Qi-jawngc-manganese-boron tablet (Calcium 600-D3 Plus (mag-zinc)) levothyroxine 75 mcg tablet 75 mcg PO DAILY@0630 02/15/22 02/15/22 02/14/22 History oxycodone-acetaminophen 5 mg-325 1 tab PO QID PRN pain 02/15/22 02/15/22 02/14/22 History mg tablet rosuvastatin 5 mg tablet 5 mg PO BEDTIME 02/15/22 02/15/22 02/14/22 History Physical Exam Vital Signs and Narrative: Vital Signs: Last Vital Signs Temp 97.8 F 02/20/22 15:30 Pulse 78 02/20/22 15:30 Resp 20 02/20/22 15:30 BP 116/69 02/20/22 15:30 Pulse Ox 97 02/20/22 15:30 O2 Del Method 02/20/22 15:30 BMI result Body Mass Index 22.8 Results Labs CBC and Chem 7: 02/20/22 05:38 02/20/22 10:13 Labs: Laboratory Results - last 24 hr 02/20/22 02/20/22 05:38 10:13 MCV 89.8 MCH 29.0 MCHC 32.3 RDW 12.4 Plt Count 309 D MPV 10.1 Immature Gran % (Auto) 1.5 H Neut % (Auto) 76.0 H Lymph % (Auto) 13.6 L [place] % (Auto) 7.5 Eos % (Auto) 1.1 Baso % (Auto) 0.3 Lymph # (Auto) 1.6 [place] # (Auto) 0.9 Eos # (Auto) 0.1 Baso # (Auto) 0.0 Abs Immat Gran (auto) 0.17 H Absolute Neuts (auto) 8.9 H Absolute Nucleated RBC 0.000 Nucleated RBC % (auto) 0.0 Anion Gap 14 Estim Creat Clear Calc 78.1 Estimated GFR > 60 Random Glucose 95 Calcium 9.1 Imaging Radiologist's Impressions: Impressions Head CT 02/20/22 09:20 IMPRESSION: No acute intracranial pathology. Head/Neck CTA 02/20/22 12:53 IMPRESSION: - No acute intracranial findings. - No acute arterial occlusions and no significant arterial stenoses within the head or neck. - There is significant stranding within the subcutaneous fat of the perimandibular, jesse-maxillary, and remaining facial soft tissues bilaterally. These findings are bilateral and symmetric, possibly reflecting facial filler material but should be correlated for any clinical signs of cellulitis which could appear similar. No drainable fluid collections. - Multilevel cervical spondylosis. Anterior subluxation of C4 on C5 in the setting of advanced facet arthropathy at this level. Brain MRI 02/20/22 15:15 IMPRESSION: No acute infarct, mass lesion, intracranial hemorrhage, or evidence of hydrocephalus. Background changes of chronic microangiopathy. Assessment and Plan (1) Diplopia: Status: Acute Plan 1/Diplopia--neuro work up is negative at this time including MRI, CT, CTA -will continue to observe -May use patch to help with seeing continue usual meds
--- NOTE | 2022-02-20 18:43 | PC.NURSE ---
Report given to FANNIE Watkins assuming care of patient at this time.
[2022-02-20 19:30] VITALS: BP 112/63; PULSE 77; RESP 20; TEMP 36.1; O2SAT 98
[2022-02-20] MEDS: Gabapentin 600 MG TABLET PO (20:46)
[2022-02-20] MEDS: Atorvastatin Calcium 20 MG TABLET PO (20:46)
[2022-02-21] VITALS: BP 119/76; PULSE 75; RESP 14; TEMP 35.6; O2SAT 96
[2022-02-21] MEDS: Piperacillin Sodium/Tazobactam 3.375 GM in 0.9 % Sodium Chloride 50 ML IV ×4 (03:30→21:49)
[2022-02-21] MEDS: oxyCODONE HCl Immed Release 5 MG TABLET PO ×3 (03:31→21:47)
[2022-02-21] MEDS: Acetaminophen 325 MG TABLET 650 MG PO ×2 (03:31→17:08)
[2022-02-21 04:00] VITALS: BP 124/78; PULSE 78; RESP 18; TEMP 36.2; O2SAT 99
[2022-02-21] MEDS: guaiFENesin DM 600/30 1 TAB TAB.ER.12H 2 TAB PO ×3 (05:24→21:46)
[2022-02-21] MEDS: Levothyroxine Sodium 75 MCG TABLET PO (05:24)
[2022-02-21] MEDS: Omeprazole 20 MG CAPSULE.DR PO (05:24)
[2022-02-21 07:47] VITALS: BP 137/86; PULSE 83; RESP 18; TEMP 36.7; O2SAT 96
--- NOTE | 2022-02-21 08:07 | PM.PNGS ---
Subjective Subjective Date of Service: 02/21/22 <Carole Zavala PA-C - Last Filed: 02/21/22 08:23> 02/21/22 <Vernon Gupta MD - Last Filed: 02/21/22 09:47> Interval history: Feeling better overall in regards to abd pain, mild. Tolerating solid diet. Had large liquid stool yesterday. Still has diplopia- is happening intermittently. Denies headaches. Covering R eye helping. <Carole Zavala PA-C - Last Filed: 02/21/22 08:23> Physical Exam Vital Signs: Vital Signs: Last Vital Signs Temp 98.1 F 02/21/22 07:47 Pulse 83 02/21/22 07:47 Resp 18 02/21/22 07:47 BP 137/86 02/21/22 07:47 Pulse Ox 96 02/21/22 07:47 O2 Del Method 02/21/22 07:47 BMI result Body Mass Index 22.8 <Carole Zavala PA-C - Last Filed: 02/21/22 08:23> Const: General: comfortable, no acute distress and alert <Carole Zavala PA-C - Last Filed: 02/21/22 08:23> Orientation/consciousness: patient oriented x3 <JESSICA Link Last Filed: 02/21/22 08:23> Eyes: Sclerae: sclerae normal <Carole Zavala PA-C - Last Filed: 02/21/22 08:23> Pupils: Equal, round and reactive pupils present <Carole Zavala PA-C - Last Filed: 02/21/22 08:23> Resp: Effort & Inspection: normal respiratory effort <JESSICA Link Last Filed: 02/21/22 08:23> GI: Inspection: No distended <JESSICA Link Last Filed: 02/21/22 08:23> Palpation (GI): Soft to palpation, Tenderness to palpation present (GI) (mild suprapubic), no guarding and not rigid <JESSICA Link Last Filed: 10/28/22 08:23> Percussion: Yes normal to percussion <Carole Zavala PA-C - Last Filed: 02/21/22 08:23> Skin: General skin exam: no rashes or lesions noted <Carole Zavala PA-C - Last Filed: 02/21/22 08:23> Neuro: General: patient oriented x3 and moves all extremities <Carole Zavala PA-C - Last Filed: 02/21/22 08:23> Cranial nerves: Yes Equal, round and reactive pupils present <Carole Zavala PA-C - Last Filed: 02/21/22 08:23> Extrem: General: Yes no clubbing, cyanosis or edema <Carole Zavala PA-C - Last Filed: 02/21/22 08:23> Objective Data Active Medications Acetaminophen (Acetaminophen 325 Mg Tablet) 650 mg PO QID PRN PRN Reason: headache, temp > 101 Last Admin: 02/21/22 03:31 Dose: 650 mg Documented By: CLAY Atenolol (Atenolol 25 Mg Tablet) 25 mg PO DAILY [facility]; Protocol Last Admin: 02/20/22 08:48 Dose: 25 mg Documented By: CATHERINE Atorvastatin Calcium (Atorvastatin Calcium 20 Mg Tablet) 20 mg PO BEDTIME [facility] Last Admin: 02/20/22 20:46 Dose: 20 mg Documented By: MICHAEL Docusate Sodium (Docusate Sodium 100 Mg Capsule) 100 mg PO BID [facility] Last Admin: 02/20/22 20:46 Dose: 100 mg Documented By: MICHAEL Gabapentin (Gabapentin 600 Mg Tablet) 600 mg PO BEDTIME [facility] Last Admin: 02/20/22 20:46 Dose: 600 mg Documented By: MICHAEL Guaifenesin/Dextromethorphan (Guaifenesin Dm 600/30 1 Tab Tab.Er.12h) 2 tab PO BID PRN PRN Reason: Cough Last Admin: 02/21/22 05:24 Dose: 2 tab Documented By: CLAY Hydromorphone HCl (Hydromorphone Hcl 0.5 Mg/0.5 Ml Syringe) 0.5 mg IVPUSH Q3H PRN; Protocol PRN Reason: Pain, Severe (Pain Scale 7-10) Last Admin: 02/19/22 19:37 Dose: 0.5 mg Documented By: AUTUMN Piperacillin Sod/Tazobactam (Sod 3.375 gm/ Sodium Chloride) 50 mls @ 100 mls/hr IV Q6H [facility] Last Infusion: 02/21/22 04:03 Dose: 100 mls/hr Documented By: CLAY Levothyroxine Sodium (Levothyroxine Sodium 75 Mcg Tablet) 75 mcg PO DAILY@0630 [facility] Last Admin: 02/21/22 05:24 Dose: 75 mcg Documented By: CLAY Omeprazole (Omeprazole 20 Mg Capsule.Dr) 20 mg PO Q2D@0630 [facility] Last Admin: 02/21/22 05:24 Dose: 20 mg Documented By: CLAY Ondansetron HCl (Ondansetron Hcl 4 Mg/2 Ml Vial) 4 mg IVPUSH Q8H PRN PRN Reason: Nausea Last Admin: 02/19/22 03:40 Dose: 4 mg Documented By: AUTUMN Oxycodone HCl (Oxycodone Hcl Immed Release 5 Mg Tablet) 5 mg PO Q6H PRN PRN Reason: Pain, Moderate (Pain Scale 4-6 Last Admin: 02/21/22 03:31 Dose: 5 mg Documented By: CLAY Pharmacy Consult (Consult Rx Perform Med Rec) 1 each MISCELLANE ONCE PRN PRN Reason: Consult order Simethicone (Simethicone 80 Mg Tab.Chew) 80 mg PO QIDWMHS PRN PRN Reason: Gas Last Admin: 02/20/22 20:46 Dose: 80 mg Documented By: MICHAEL Sodium Chloride (0.9 % Sodium Chloride Flush 3 Ml Syringe) 3 ml IVFLUSH QSHIFT [facility] Last Admin: 02/20/22 23:54 Dose: 3 ml Documented By: MICHAEL Zolpidem Tartrate (Zolpidem Tartrate 5 Mg Tablet) 5 mg PO BEDTIME PRN PRN Reason: Insomnia <Carole Zavala PA-C - Last Filed: 02/21/22 08:23> Labs CBC & Chem 7: : 02/20/22 05:38 02/20/22 10:13 <Carole Zavala PA-C - Last Filed: 02/21/22 08:23> Labs: Laboratory Results - last 24 hr 02/20/22 10:13 Anion Gap 14 Estim Creat Clear Calc 78.1 Estimated GFR > 60 Random Glucose 95 Calcium 9.1 <Carole Zavala PA-C - Last Filed: 02/21/22 08:23> Microbiology Microbiology Results: Microbiology 02/18/22 10:58 Gram Stain - Final Abscess Intra-abdominal Routine Culture - Final Escherichia coli Anaerobic Culture - Preliminary Culture in progress. 02/15/22 02:58 Blood Culture - Final Blood - Venous No growth after 5 days. 02/15/22 02:58 Blood Culture - Final Blood - Venous No growth after 5 days. <Carole Zavala PA-C - Last Filed: 02/21/22 08:23> Procedures Date of Service Date of Service: 02/21/22 <Carole Zavala PA-C - Last Filed: 02/21/22 08:23> Progress Note: A&P Assessment and plan (1) Diplopia: Status: Acute <Carole Zavala PA-C - Last Filed: 02/21/22 08:23> (2) Diverticulitis of intestine with abscess: Status: Acute <Carole Zavala PA-C - Last Filed: 02/21/22 08:23> Assessment and Plan: 66 year old female admitted for sigmoid diverticulitis, history of hypothyroid. Developed diplopia yesterday. Still happening intermittently. Seen by neurology- head/neck CTA and MRI negative for acute pathology. Patient diverticulitis seems overall improved after IR drainage although WBC count still mildly elevated. Repeat abd and pelvic CT showed improved appearance of the right pelvic fluid collection without significant residual fluid collection. Drain still continues with purulent drainage. Abdomen is soft with mild tenderness at the lower abdomen. Cont abx, keep drain in place. Discharge pending regarding diplopia. Will await neurology input regarding diplopia today. <Carole Zavala PA-C - Last Filed: 02/21/22 08:23> 66 year old female admitted for sigmoid diverticulitis, history of hypothyroid. Developed diplopia yesterday. Still happening intermittently. Seen by neurology- head/neck CTA and MRI negative for acute pathology. Patient diverticulitis seems overall improved after IR drainage although WBC count still mildly elevated. Repeat abd and pelvic CT showed improved appearance of the right pelvic fluid collection without significant residual fluid collection. Drain still continues with purulent drainage. Abdomen is soft with mild tenderness at the lower abdomen. Cont abx, keep drain in place. Discharge pending regarding diplopia. Will await neurology input regarding diplopia today. Agree with the above assessment and plan. Patient continues to have diplopia but is happy with the test results. Culture results revealed E coli, anaerobic cultures are pending. Drain is intact and continues to drain a milky white fluid. CT is much improved with only a small amount of air bubbles remaining. Will keep drain in place for now. <Vernon Gupta MD - Last Filed: 02/21/22 09:47> Time Spent With Patient Time: Total time spent is greater than 50% in coordination of care (as documented) at patient's floor/unit and/or counseling patient: <Carole Zavala PA-C - Last Filed: 02/21/22 08:23> Quality Stroke Does the patient have a stroke diagnosis?: No <Carole Zavala PA-C - Last Filed: 02/21/22 08:23> VTE Prior VTE?: No <Carole Zavala PA-C - Last Filed: 02/21/22 08:23> VTE Risk Level:: Surgical - low <Carole Zavala PA-C - Last Filed: 02/21/22 08:23> VTE Device Contraindication: N/A - Device Ordered <Carole Zavala PA-C - Last Filed: 02/21/22 08:23> VTE Drug Contraindication: Treatment Not Indicated <Carole Zavala PA-C - Last Filed: 02/21/22 08:23>
[2022-02-21] MEDS: 0.9 % Sodium Chloride Flush 3 ML SYRINGE IVFLUSH ×3 (08:10→22:38)
[2022-02-21] MEDS: atenoloL 25 MG TABLET PO (08:10)
[2022-02-21 11:50] VITALS: BP 136/79; PULSE 77; RESP 18; TEMP 36.7; O2SAT 95
[2022-02-21] MEDS: Simethicone 80 MG TAB.CHEW PO (14:45)
[2022-02-21 16:00] VITALS: BP 114/70; PULSE 78; RESP 18; TEMP 36.6; O2SAT 97
[2022-02-21 20:00] VITALS: BP 120/81; PULSE 80; RESP 18; TEMP 36.6; O2SAT 97
[2022-02-21] MEDS: Gabapentin 600 MG TABLET PO (21:47)
[2022-02-21] MEDS: Atorvastatin Calcium 20 MG TABLET PO (21:47)
[2022-02-22] VITALS: BP 119/83; PULSE 78; RESP 18; TEMP 36.1; O2SAT 96
[2022-02-22 04:00] VITALS: BP 110/71; PULSE 76; RESP 18; TEMP 36.8; O2SAT 98
[2022-02-22] MEDS: Piperacillin Sodium/Tazobactam 3.375 GM in 0.9 % Sodium Chloride 50 ML IV ×2 (04:28→10:11)
[2022-02-22] MEDS: Levothyroxine Sodium 75 MCG TABLET PO (06:15)
[2022-02-22 07:19] VITALS: BP 139/86; PULSE 86; RESP 18; TEMP 36.1; O2SAT 95
[2022-02-22] MEDS: atenoloL 25 MG TABLET PO (07:47)
[2022-02-22] MEDS: 0.9 % Sodium Chloride Flush 3 ML SYRINGE IVFLUSH (07:48)
[2022-02-22] MEDS: oxyCODONE HCl Immed Release 5 MG TABLET PO (10:10)
[2022-02-22] MEDS: Acetaminophen 325 MG TABLET 650 MG PO (10:11)
[2022-02-22 11:40] LABS: Hematocrit 35.9 % (37.0-47.0); Hemoglobin 11.9 g/dl (12.0-16.0); Mean Corpuscular HGB Conc 33.1 g/dl (31.0-35.0); Mean Corpuscular Hemoglobin 29.9 pg (27.0-33.0); Mean Corpuscular Volume 90.2 fL (80.0-98.0); Mean Platelet Volume 9.8 fL (9.4-12.3); Platelet Count 429 X10*3/uL (160-400); Red Blood Count 3.98 X10*6/uL (4.20-5.50); Red Cell Distribution Width 12.3 % (11.0-16.0); White Blood Count 8.6 X10*3/uL (4.8-10.8)
[2022-02-22 11:53] VITALS: BP 100/65; PULSE 76; RESP 18; TEMP 36.4; O2SAT 97
--- NOTE | 2022-02-22 12:22 | PM.DS ---
DS: Providers Provider Date of Service: 02/22/22 Date of admission: 02/15/22 03:44 Date of discharge: 02/22/22 Primary care physician: Mami Wang MD Consults: 02/20/22 07:46 Consult to Hospitalist Routine Consulting Provider: Hospitalist Reason For Exam: diplopia, diverticulitis with abscess 02/20/22 08:03 Consult to Neurology Routine Consulting Provider: [facility] Reason for consultation: Diplopia Has provider been notified: No DS: Diagnosis Discharge Diagnosis (1) Diplopia: Status: Acute (2) Diverticulitis of intestine with abscess: Status: Acute DS: Summary Hospital Course Hospital Course: The pt is a 66 year old female who had an area of sigmoid diverticulitis with an abscess and this was drained and the pt has done better with iv zosyn. She still has drainage of purulent material but lessening so will be dc home on cipro and flagyl and follow up with Dr Gupta in the office. Will keep bag in place and measure daily drainage out. Status at Discharge Cognitive/behavioral status at discharge: good Functional status at discharge: independent ambulation Overall status at discharge: patient is progressing back to baseline Time Spent with Patient Time attestation: Total time spent providing and/or coordinating discharge services: Discharge coordination time: Greater than 30 minutes Quality: Safe Use of Opioids Does Pt have an Active Cancer Diagnosis on the Problem List?: No Quality: Stroke Does the patient have a stroke diagnosis?: No Physical Exam Vital Signs: Vital Signs: Last Vital Signs Temp 97.6 F 02/22/22 11:53 Pulse 76 02/22/22 11:53 Resp 18 02/22/22 11:53 BP 100/65 02/22/22 11:53 Pulse Ox 97 02/22/22 11:53 O2 Del Method 02/22/22 11:53 BMI result Body Mass Index 22.8 Const: General: cooperative and healthy appearing Orientation/consciousness: oriented to person, oriented to place and oriented to time HEENT: Head: Yes normal to inspection Resp: Effort & Inspection: normal respiratory effort Auscultation: clear to auscultation bilaterally Cardio: Rate: regular rate Rhythm: regular rhythm GI: Palpation (GI): Soft to palpation, nontender and no masses Auscultation: normal bowel sounds Skin: General skin exam: no rashes or lesions noted Neuro: General: oriented to person, oriented to place and oriented to time Extrem: General: Yes normal to inspection Psych: Appearance: grossly normal DS: Data Data Completed and Pending Labs on day of discharge: Laboratory Results - last 24 hr 02/22/22 11:29 WBC 8.6 RBC 3.98 L Hgb 11.9 L Hct 35.9 L MCV 90.2 MCH 29.9 MCHC 33.1 RDW 12.3 Plt Count 429 H D MPV 9.8 Absolute Nucleated RBC 0.000 Nucleated RBC % (auto) 0.0 Preliminary micro results at discharge 02/18/22 10:58 Anaerobic Culture - Preliminary Abscess Intra-abdominal Culture in progress. Imaging CT scan - abdomen: Radiologist's impression: ITS Impressions Abdomen/Pelvis CT 02/15/22 02:41 IMPRESSION: * Finding suggestive of acute uncomplicated sigmoid diverticulitis. * Incidental 5.7 x 2.7 cm cyst emanating from the right ovary. Recommend nonemergent pelvic ultrasound for further evaluation. Abdomen/Pelvis CT 02/17/22 11:21 IMPRESSION: Sigmoid diverticulitis. Small amount of extraluminal air in the pelvis suggestive of contained perforation. No evidence of free air. Fluid collection in the right pelvis with small amount of air measuring 5 x 6 cm suggestive of an abscess. Question smaller abscesses superior to the uterus and in the left adnexa. Generalized ileus. Small bilateral renal stones. Findings will be communicated by the [place] work flow weave defect charting clerk. Fleischner guidelines were followed. Abscess Drainage CT 02/18/22 11:55 IMPRESSION: CT-guided right pelvic 8.5 [place] drain placement. Head CT 02/20/22 09:20 IMPRESSION: No acute intracranial pathology. Head/Neck CTA 02/20/22 12:53 IMPRESSION: - No acute intracranial findings. - No acute arterial occlusions and no significant arterial stenoses within the head or neck. - There is significant stranding within the subcutaneous fat of the perimandibular, jesse-maxillary, and remaining facial soft tissues bilaterally. These findings are bilateral and symmetric, possibly reflecting facial filler material but should be correlated for any clinical signs of cellulitis which could appear similar. No drainable fluid collections. - Multilevel cervical spondylosis. Anterior subluxation of C4 on C5 in the setting of advanced facet arthropathy at this level. Abdomen/Pelvis CT 02/20/22 13:34 IMPRESSION: Right pelvic drainage catheter in place with significantly improved appearance of the right pelvic fluid collection. Small amount of gas surrounding the catheter without significant residual fluid collection. Sigmoid diverticulosis. Fleischner guidelines were followed. Brain MRI 02/20/22 15:15 IMPRESSION: No acute infarct, mass lesion, intracranial hemorrhage, or evidence of hydrocephalus. Background changes of chronic microangiopathy. Discharge Plan Discharge Anticipated Discharge Date/Time: 02/22/22 12:09 Patient Disposition: Home Health Service Discharge Diagnosis: Diverticulitis with abscess Referrals: Annita DOUGLAS [Outside] - 3-5 Days (A NURSE WILL CONTACT YOU TO ARRANGE FIRST VISIT ON SATURDAY 02/24.) Mami Wang MD [Primary Care Provider] - 1 Week Vernon Gupta MD [Physician] - 1 Week Discharge Medications: New docusate sodium [Stool Softener] 100 mg tablet 100 mg PO BID Qty: 20 0RF ciprofloxacin HCl 500 mg tablet 500 mg PO BID Qty: 20 1RF metronidazole 500 mg tablet 500 mg PO TID Qty: 30 1RF oxycodone 5 mg Tablet 5 mg PO Q6H PRN (Reason: Pain, Moderate (Pain Scale 4-6) Qty: 8 0RF Rx Instructions: Partial Fill upon patient request. Continued gabapentin 600 mg tablet 600 mg PO BEDTIME Qty: 30 5RF atenolol 25 mg tablet 25 mg PO DAILY Qty: 90 1RF Ca-D3-mag hm-jodm-loy-kendall-bor [Calcium 600-D3 Plus (mag-zinc)] 600 mg calcium- 20 mcg-50 mg Tablet 1 tab PO DAILY oxycodone-acetaminophen 5-325 mg tablet 1 tab PO QID PRN (Reason: pain) levothyroxine 75 mcg tablet 75 mcg PO DAILY@0630 rosuvastatin 5 mg tablet 5 mg PO BEDTIME omeprazole 20 mg capsule,delayed release(DR/EC) 20 mg PO Q2D@0630 cholecalciferol (vitamin D3) 25 mcg (1,000 unit) capsule 25 mcg PO DAILY vitamin E mixed 400 unit capsule 400 unit PO DAILY Discontinued lorazepam 0.5 mg tablet 0.5 mg PO DAILY PRN (Reason: anxiety about flying) Qty: 5 0RF Discharge Orders: Discharge Order (Routine); Ordered 02/22/22 Ordered By: Mirta Castanon Nicole Diet: low residue diet Activity on Discharge: As tolerated Stand Alone Forms: Patient Portal Discharge page Activity Restrictions/Additional Instructions: Drain care- empty daily. Measure & record output. Call Your Doctor If: ? ? -Your temperature exceeds 101.5? F? ? ? -You experience excessive pain or swelling ? ? -You have an unexpected reaction to medication ? ? -You experience continued vomiting/nausea Care Plan Goals: Return to baseline health and gradual return to activity. pt to keep track of daily drainage fluid amounts and record. keep bag in place sponge bath around until drain removed follow up early week with surgery office - call for an appt. Health Concerns: Diverticulitis with abscess Plan of Treatment: S/p IR drainage of diverticular abscess IV abx, transitioned to PO abx F/u in office with Dr. Gupta Assessment: Improved Patient Instructions: Diverticulitis Diet (ED) Discharge Date/Time: 02/22/22 16:08
--- NOTE | 2022-02-22 13:08 | MHC.CM.PN ---
PT MEDICALLY CLEARED FOR D/C HOME W/NEW [facility] FOR [facility], PT WILL ARRANGE TRANSPORT.
[2022-02-22 15:18] VITALS: BP 117/16; PULSE 71; RESP 18; TEMP 36.9; O2SAT 97
[2022-02-22 15:44] VITALS: BP 122/74; PULSE 72; RESP 17; TEMP 36.6; O2SAT 97
--- NOTE | 2022-02-24 14:27 | P.F2F_ITS ---
Service Date Service Date: 02/22/22 Encounter Date of encounter: 02/22/22 Reasons for Services Signs and symptoms assessed: abdominal pain, PO intake, GI function, drain output Reason for detention: wound care (drain care) Homebound: Leaving the home is medically contraindicated at this time without the asist of a device and/or another person due th the listed conditions above and below. Reason homebound: weakness related to hospital stay and unable to drive (diplopia) Homebound supporting statement: Ms. Edward is a 66 year old female admitted with diverticulitis with abscess. She was treated conservatively and underwent IR drainage of the abscess with improvement. She will need assistance with drain care. She also developed diplopia during her stay. Imaging was performed which did not reveal acute pathology. Certification: Based on the above findings, I certify that this patient is confined to the home and needs intermittent detention care, physical therapy and/or speech therapy, or continues to need occupational therapy. The patient is under my care, and I have initiated the establishment of the plan of care. The patient will be followed by a physician who will periodically review the plan of care.
== END 2022-02-22 16:08 | disposition home health service (06) | DRG 872 ==
LOC: HO.ED 02-15 03:31 → HO.EDOVER 02-15 03:54 → HO.S3 02-15 17:41
PROVIDERS: Internal Medicine; Radiology Diagnostic Radiology; Surgery; Admitting Provider Surgery; Emergency Provider Student in an Organized Health Care Education/Training Program; PCP Internal Medicine; Visit Provider Surgery
PROC: 0W9J30Z Drainage of Pelvic Cavity with Drainage Device, Percutaneous Approach (ICD-10-PCS; principal; 2022-02-18 10:00)
DX: A41.9 Sepsis, unspecified organism (principal); K57.20 Diverticulitis of large intestine with perforation and abscess without bleeding; E78.5 Hyperlipidemia, unspecified; N83.201 Unspecified ovarian cyst, right side; H53.2 Diplopia; E86.0 Dehydration; R53.82 Chronic fatigue, unspecified; E03.9 Hypothyroidism, unspecified; G25.81 Restless legs syndrome; Z20.822 Contact with and (suspected) exposure to COVID-19; Z23 Encounter for immunization; Z87.891 Personal history of nicotine dependence; Z79.890 Hormone replacement therapy; Z79.899 Other long term (current) drug therapy
CPT/HCPCS: 36415; 49406; 70450; 70496; 70498; 70551; 74176; 74177; 80048; 80053; 82248; 82947; 83605; 83690; 85025; 85027; 85610; 87040; 87070; 87073; 87076; 87077; 87186; 87205; 87635; 90686; 99152; 99153; 99285; C1729; C1894; J1170; J1885; J2405; J2543; Q9967

== ENCOUNTER → 2022-02-27 08:44 | Outpatient (BNVA) | payer MEDICARE, OTHER, SELFPAY | PROVIDERS: PCP Internal Medicine; Referring Provider Internal Medicine; Visit Provider Surgery | DX: K57.80 Diverticulitis of intestine, part unspecified, with perforation and abscess without bleeding (principal) | CPT/HCPCS: 99212 ==

== ENCOUNTER → 2022-04-01 09:20 | Outpatient (BNVA) | payer MEDICARE, OTHER, SELFPAY | PROVIDERS: PCP Internal Medicine; Visit Provider Surgery | DX: K57.80 Diverticulitis of intestine, part unspecified, with perforation and abscess without bleeding (principal) | CPT/HCPCS: 99212 ==

== ENCOUNTER 2022-04-02 10:05 | Outpatient (REF) | payer MEDICARE, OTHER, SELFPAY ==
[2022-04-02 12:10] LABS: Alanine Aminotransferase 12 U/L (0-31); Anion Gap 10 (12-20); Aspartate Amino Transferase 16 U/L (5-31); Blood Urea Nitrogen 7 mg/dL (9-16); Calcium 9.6 mg/dL (8.4-10.2); Carbon Dioxide 30 mmol/L (22-29); Chloride 105 mmol/L (96-108); Cholesterol 178 mg/dL; Estimated Glomerular Filt Rate > 60; Free T4 (Free Thyroxine) 1.19 ng/dL (0.71-1.85); Glucose Fasting 93 mg/dL (60-99); HDL Cholesterol 56 mg/dL; LDL Cholesterol Calculated 107 mg/dl; Potassium 4.1 mmol/L (3.3-5.1); Sodium 141 mmol/L (135-145); Thyroid Stimulating Hormone 1.72 uIU/mL (0.32-4.0); Triglycerides 77 mg/dL; Vitamin D 25-OH Total 49.4 ng/mL (>30)
== END 2022-04-02 10:06 | disposition home or self-care (01) ==
LOC: HO.HMGCLDS 10:05
PROVIDERS: PCP Internal Medicine; Visit Provider Internal Medicine
DX: E03.9 Hypothyroidism, unspecified (principal); I10 Essential (primary) hypertension; E78.5 Hyperlipidemia, unspecified; G25.81 Restless legs syndrome; N95.9 Unspecified menopausal and perimenopausal disorder
CPT/HCPCS: 36415; 80048; 80061; 82306; 84439; 84443; 84450; 84460

== ENCOUNTER 2022-05-12 12:00 | Outpatient (REF) | payer MEDICARE, OTHER, SELFPAY ==
[2022-05-17 03:18] LABS: HPV mRNA E6/E7 rflx Not Detected (Not Detected)
== END 2022-05-12 12:01 | disposition home or self-care (01) ==
LOC: HO.LNP 12:00
PROVIDERS: PCP Internal Medicine; Visit Provider Obstetrics & Gynecology
DX: Z01.419 Encounter for gynecological examination (general) (routine) without abnormal findings (principal); R10.2 Pelvic and perineal pain; R10.31 Right lower quadrant pain; Z78.0 Asymptomatic menopausal state
CPT/HCPCS: 87086; 87088; 87186; 87624; 88142

== ENCOUNTER → 2022-05-13 09:21 | Outpatient (BNVA) | payer MEDICARE, OTHER, SELFPAY | PROVIDERS: PCP Internal Medicine; Visit Provider Surgery | DX: K57.80 Diverticulitis of intestine, part unspecified, with perforation and abscess without bleeding (principal) | CPT/HCPCS: 99212 ==

== ENCOUNTER 2022-06-03 13:21 | Outpatient (REF) | payer MEDICARE, OTHER, SELFPAY ==
--- NOTE | ~2022-06-03 | US_ITS ---
EXAMINATION: US PELVIS CLINICAL INFORMATION: Pelvic and perineal pain; postmenopausal patient. COMPARISON: None TECHNIQUE: Ultrasound of the pelvis is performed using transabdominal technique. The patient declined transvaginal imaging. FINDINGS: Uterus: The uterus is anteverted and anteflexed. The uterus measures 5.7 x 2.5 x 4.5 cm. The double wall endometrial thickness is very poorly visualized. The uterus is smooth in contour and has normal myometrial echogenicity. No visible fibroid. Adnexa: Both ovaries are nonvisualized. There is normal color flow to the adnexa. There is no pelvic ascites or fluid collection. US/US pelvic and transvaginal IMPRESSION: 1. The uterus is atrophic. The endometrial stripe is thin and poorly visualized. 2. The bilateral ovaries are nonvisualized.
== END 2022-06-03 13:22 | disposition home or self-care (01) ==
LOC: HO.US 13:21
PROVIDERS: PCP Internal Medicine; Visit Provider Obstetrics & Gynecology
DX: R10.2 Pelvic and perineal pain (principal)
CPT/HCPCS: 76830; 76856

== ENCOUNTER 2022-06-03 14:14 | Outpatient (REF) | payer MEDICARE, OTHER, SELFPAY ==
--- NOTE | ~2022-06-03 | MM_ITS ---
EXAMINATION: BONE DENSITOMETRY CLINICAL INDICATION: Menopause. COMPARISON: Previous BD dated 04/08/2018 and baseline BD dated 01/31/2011. TECHNIQUE: Using a [employer] DXA System (software version: 13.1) manufactured by [employer], dual-energy x-ray absorptiometry was performed of the lumbar spine and left forearm radius 33%. Patient with bilateral hip replacements. The images are of good technical quality. Summary results are attached. FINDINGS: AP SPINE L1-L4: Current: BMD 1.209 g/cm2, Z-score 2.1, T-score 0.2, normal, 6.2% decrease from previous, 8.8% decrease from baseline (<5% change is not significant). Prior: BMD 1.289 g/cm2. Baseline: BMD 1.325 g/cm2. LEFT FOREARM RADIUS 33%: BMD 0.665 g/cm2, Z-score -0.7, T-score -2.4, osteopenia, 9.8% decrease from previous, 15.3% decrease from baseline (<5% change is not significant). Prior: BMD 0.737 g/cm2. Baseline: BMD 0.785 g/cm2. IDENTIFIED RISK FACTORS: Menopause, hyperthyroid, rheumatoid arthritis, history of fracture (adult). HISTORY OF FRACTURE: Wrist. MEDICATIONS: Calcium, vitamin D. MM/XR DEXA axial skeleton IMPRESSION: 1. DIAGNOSIS: Osteopenia based on the lowest T-score value of -2.4 in the forearm radius 33% applying World Health Organization criteria. 2. 10-YEAR FRACTURE RISK PREDICTION, FRAX: Not performed in this patient without a femoral neck BMD measurement. 3. Treatment Recommendations: NOF guidelines recommend consideration for treatment in postmenopausal women and men age 50 and older presenting with the following: -A hip or vertebral (clinical or morphometric) fracture. -T-score less than or equal to -2.5 at the femoral neck or spine after appropriate evaluation to exclude secondary causes. -Low bone mass at the hip or spine and a 10-year fracture probability by FRAX of greater than or equal to 3% for hip fracture or greater than or equal to 20% for major osteoporotic fracture based on the [place] adapted WHO algorithm. 4. Other Recommendations: All treatment decisions require clinical judgment and consideration of individual patient factors, including patient preferences, comorbidities, previous drug use, risk factors not captured in the FRAX model (e.g. frailty, falls, vitamin D deficiency, increased bone turnover, interval significant decline in bone density) and possible under or overestimation of fracture risk by FRAX. Additional medical evaluation for secondary cause of low bone mineral density may be appropriate. FUTURE SCAN RECOMMENDATION: People with diagnosed cases of osteoporosis or at high risk for fracture should have regular bone mineral density tests. For patients eligible for Medicare, routine testing is allowed once every 2 years. The testing frequency can be increased to one year for patients who have rapidly progressing disease, those who are receiving or discontinuing medical therapy to restore bone mass, or have additional risk factors.
== END 2022-06-03 14:15 | disposition home or self-care (01) ==
LOC: HO.MAMMO 14:14
PROVIDERS: PCP Internal Medicine; Visit Provider Obstetrics & Gynecology
DX: Z13.820 Encounter for screening for osteoporosis (principal); Z78.0 Asymptomatic menopausal state
CPT/HCPCS: 77080

== ENCOUNTER 2022-07-01 13:54 | Outpatient (REF) | payer MEDICARE, OTHER, SELFPAY | END 2022-07-01 13:55 | disposition home or self-care (01) | LOC: HO.LNP 13:54 | PROVIDERS: PCP Internal Medicine; Visit Provider Obstetrics & Gynecology | DX: R31.9 Hematuria, unspecified (principal); R10.2 Pelvic and perineal pain; M85.80 Other specified disorders of bone density and structure, unspecified site | CPT/HCPCS: 87086; 99212 ==

== ENCOUNTER → 2022-07-15 09:33 | Outpatient (BNVA) | payer MEDICARE, OTHER, SELFPAY | PROVIDERS: PCP Internal Medicine; Visit Provider Obstetrics & Gynecology | DX: R31.29 Other microscopic hematuria (principal); M85.80 Other specified disorders of bone density and structure, unspecified site | CPT/HCPCS: 99212 ==

== ENCOUNTER 2022-09-01 09:04 | Outpatient (REF) | payer MEDICARE, OTHER, SELFPAY ==
[2022-09-01 16:54] LABS: Urine Cytology See Pathology rpt
== END 2022-09-01 09:05 | disposition home or self-care (01) ==
LOC: HO.LAB 09:04
PROVIDERS: PCP Internal Medicine; Visit Provider Urology
DX: R31.29 Other microscopic hematuria (principal); R33.9 Retention of urine, unspecified; R10.2 Pelvic and perineal pain; Z87.891 Personal history of nicotine dependence; Z79.899 Other long term (current) drug therapy
CPT/HCPCS: 51798; 88112; 99202

== ENCOUNTER 2022-09-30 11:36 | Day surgery (SDC) | payer MEDICARE, OTHER, SELFPAY ==
[2022-09-26 14:12] VITALS: BMI 23.0
--- NOTE | 2022-09-29 10:45 | P.CONAN_ITS ---
Documented by User: Shanelle Alvarez NP 09/29/22 10:49 HPI - Anesthesia Eval Consult details Narrative: 66yo F for Cystoscopy & with poss Bladder Biopsy PMFSH Active Problems Active Problems: All Active Problems (Updated 09/01/22 @ 10:03 by Jaison Sanders) Incomplete bladder emptying (Acute) History of nicotine use (Acute) Microscopic hematuria (Acute) Bone loss (Acute) Menopause (Acute) Well woman exam (Acute) Pelvic pain (Acute) Diplopia (Acute) Diverticulitis of intestine with abscess (Acute) Angular cheilitis (Acute) Essential hypertension (Acute) Dyslipidemia (Acute) Restless leg syndrome (Acute) Acquired hypothyroidism (Acute) Past Medical History Medical History (Updated 09/30/22 @ 13:23 by Lis Wiley, FANNIE) Acquired hypothyroidism Arthritis Dyslipidemia Essential hypertension Fatigue GERD (gastroesophageal reflux disease) Ovarian cyst Restless leg syndrome Surgical History Surgical History (Updated 09/30/22 @ 13:23 by Lis Wiley RN) History of back surgery Hx laparoscopic cholecystectomy (07/04/96) Hx of colonoscopy Status post total hip replacement, bilateral Social History Social History Household Members: [facility] Do you presently have visiting nurse or other home services: No Patient Tobacco Use Status: Former Tobacco user Quit Date: 24 yr ago Years Smoked: 25 yrs e-Cigarette/Vaping Use: Never Used Use of substances other than those prescribed or required for medical reasons: No Are you DNR?: No Advance Directives: No Advance Directives Information Provided: Yes Recently lost weight without trying: No Nutrition Risks: No Nutritional Risk service: No Current occupational status: retired Cognitive needs: No Hearing needs: No Vision needs: No Meds Allergies Allergy/AdvReac Type Severity Reaction Status Date / Time No Known Allergies Allergy Mild NOT Verified 09/30/22 13:39 APPLICABLE Home Medications Medication Instructions Recorded Confirmed Last Taken Type cholecalciferol (vitamin D3) 25 25 mcg PO DAILY 01/25/21 09/30/22 02/14/22 History mcg (1,000 unit) capsule omeprazole 20 mg capsule,delayed 20 mg PO Q2D@0630 01/25/21 10/07/22 10/07/22 History release vitamin E mixed 400 unit capsule 400 unit PO DAILY 1009/30/22 02/14/22 History Ca 600 mg-D3 20 mcg-mag oxide 50 1 tab PO DAILY 02/15/22 09/30/22 02/14/22 History mr-Nl-cckeyr-manganese-boron tablet (Calcium 600-D3 Plus (mag-zinc)) oxycodone-acetaminophen 5 mg-325 1 tab PO QD-QID PRN pain 09/30/22 09/30/22 09/30/22 13:00 History mg tablet Exam Exam Date and Time: September 29, 2022 1045 Height,Weight and Vital Signs: Height 5 ft 2 in Weight 57.153 kg Pertinent Lab Results Pertinent Lab Results: Laboratory Tests 02/22/22 04/02/22 11:29 10:10 WBC 8.6 Hgb 11.9 L Hct 35.9 L Plt Count 429 H D Sodium 141 Potassium 4.1 D Chloride 105 Carbon Dioxide 30 H BUN 7 L Creatinine 0.67 Assessment and Plan Assessment Anesthesia Assessment: Chart Reviewed Documented by User: Pasha Valerio MD 10/09/22 21:11 [facility], [facility] Past Medical History Medical History (Updated 09/30/22 @ 13:23 by Lis Wiley RN) Acquired hypothyroidism Arthritis Dyslipidemia Essential hypertension Fatigue GERD (gastroesophageal reflux disease) Ovarian cyst Restless leg syndrome Family History Family history of problems with anesthesia: No Surgical History Surgical History (Updated 09/30/22 @ 13:23 by Lis Wiley RN) History of back surgery Hx laparoscopic cholecystectomy (07/04/96) Hx of colonoscopy Status post total hip replacement, bilateral History of Problems with Anesthesia: No Social History Social History Household Members: Spouse Housing: Condominium Do you presently have visiting nurse or other home services: No Patient Tobacco Use Status: Former Tobacco user Quit Date: 24 yr ago Years Smoked: 25 yrs e-Cigarette/Vaping Use: Never Used Use of substances other than those prescribed or required for medical reasons: No Are you DNR?: No Advance Directives: No Advance Directives Information Provided: Yes Recently lost weight without trying: No Nutrition Risks: No Nutritional Risk service: No Current occupational status: retired Cognitive needs: No Hearing needs: No Vision needs: No Meds Allergies Allergy/AdvReac Type Severity Reaction Status Date / Time No Known Allergies Allergy Mild NOT Verified 09/30/22 13:39 APPLICABLE Home Medications Medication Instructions Recorded Confirmed Last Taken Type cholecalciferol (vitamin D3) 25 25 mcg PO DAILY 01/25/21 09/30/22 02/14/22 History mcg (1,000 unit) capsule omeprazole 20 mg capsule,delayed 20 mg PO Q2D@0630 01/25/21 10/07/22 10/07/22 History release vitamin E mixed 400 unit capsule 400 unit PO DAILY 01/25/21 09/30/22 02/14/22 History Ca 600 mg-D3 20 mcg-mag oxide 50 1 tab PO DAILY 02/15/22 09/30/22 02/14/22 History ab-Mb-dmjpeo-manganese-boron tablet (Calcium 600-D3 Plus (mag-zinc)) oxycodone-acetaminophen 5 mg-325 1 tab PO QD-QID PRN pain 09/30/22 09/30/22 09/30/22 13:00 History mg tablet Exam Airway Mallampati Class: II TM Dist: >3cm Neck ROM: Full Heart: ok Lungs: ok Assessment and Plan Assessment Anesthesia Assessment: Anesthesia Plan Discussed Final Anesthetic Review Family History of Problems with Anesthesia: No History of Problems with Anesthesia: No NPO: Yes ASA Class: II Final Preanesthetic Review: No Changes in Pt Med Stat, Meds/Allgs Chart Reviewed, Consent Obtained/Reviewed and Anes Risks/Benef Reviewed Patient Risk: Low Procedure Risk: Low Anesthetic Plan Anesthetic Plan: MAC: and Agree w/ Assess. and Plan Disposition: Standard PACU
[2022-09-30 13:28] VITALS: BMI 23.0
[2022-09-30 13:34] VITALS: BP 118/67; PULSE 68; RESP 15; TEMP 36.7; O2SAT 99
[2022-09-30] MEDS: Lactated Ringers 1,000 ML 100 ML IVCONT (13:56)
[2022-09-30 16:35] VITALS: BP 96/56; PULSE 77; RESP 16; TEMP 36.4; O2SAT 97
[2022-09-30 16:40] VITALS: BP 99/62; PULSE 87; RESP 16; O2SAT 97
--- NOTE | 2022-09-30 16:44 | W.PM.OPN ---
Operative Note Operative Note Date of Service: 09/30/22 Narrative: PreOperative Diagnosis:?? Hematuria Post Operative Diagnosis:?? ?Hematuria Procedure: Cystoscopy Surgeon:?Dr Cr Gallardo Anesthesia:? MAC Indications for procedure: Annabel is a 66-year-old female being evaluated for hematuria history of diverticular abscess. Procedure: After informed consent was verified the patient was brought to the operating placed on the OR table in supine position.? IV sedation was administered per protocol.? The patient was placed in lithotomy position, prepped and draped in the usual sterile fashion.? Safety pause time-out and side of surgery confirmed.? Antibiotics confirmed. 2% lidocaine jelly insert transurethrally. A 22 Czech cystoscope was inserted transurethrally, The bladder was visualized.? Both ureteric orifices were in normal position. Bladder wall thickening noted. No suspicious bladder lesions visualized. The bladder was emptied.? The rigid cystoscope was removed. ? 2% lidocaine jelly insert transurethrally. The patient tolerated the procedure well and was brought to the recovery room in stable condition. Complications: None Drains: None
[2022-09-30 16:45] VITALS: BP 108/68; PULSE 77; RESP 16; O2SAT 98
[2022-09-30 16:50] VITALS: BP 113/71; PULSE 76; RESP 16; O2SAT 100
[2022-09-30 17:05] VITALS: BP 122/59; PULSE 74; RESP 18; TEMP 36.3; O2SAT 99
== END 2022-09-30 17:28 | disposition home or self-care (01) ==
PROVIDERS: PCP Internal Medicine; Visit Provider Urology
PROC: (CPT 52000; principal; 2022-09-30 13:05)
DX: R31.29 Other microscopic hematuria (principal); R33.9 Retention of urine, unspecified; I10 Essential (primary) hypertension; E03.9 Hypothyroidism, unspecified; E78.5 Hyperlipidemia, unspecified; R53.83 Other fatigue; N83.209 Unspecified ovarian cyst, unspecified side; G25.81 Restless legs syndrome; Z87.19 Personal history of other diseases of the digestive system; Z79.899 Other long term (current) drug therapy; Z87.891 Personal history of nicotine dependence; Z90.49 Acquired absence of other specified parts of digestive tract
CPT/HCPCS: 52000; J0690; J2250; J3010

== ENCOUNTER 2022-10-07 06:43 | Day surgery (SDC) | payer MEDICARE, OTHER, SELFPAY ==
--- NOTE | 2022-10-06 12:45 | P.CONAN_ITS ---
Documented by User: Shanelle Alvarze NP 10/06/22 12:46 HPI - Anesthesia Eval Consult details Narrative: 66yo F for Colonoscopy PMFSH Active Problems Active Problems: All Active Problems (Updated 09/30/22 @ 13:23 by Lis Wiley RN) Angular cheilitis (Acute) Diverticulitis of intestine with abscess (Acute) Diplopia (Acute) Pelvic pain (Acute) Well woman exam (Acute) Menopause (Acute) Bone loss (Acute) Microscopic hematuria (Acute) History of nicotine use (Acute) Incomplete bladder emptying (Acute) Essential hypertension (Acute) Dyslipidemia (Acute) Restless leg syndrome (Acute) Acquired hypothyroidism (Acute) Past Medical History Medical History (Updated 09/30/22 @ 13:23 by Lis Wiley RN) Acquired hypothyroidism Arthritis Dyslipidemia Essential hypertension Fatigue GERD (gastroesophageal reflux disease) Ovarian cyst Restless leg syndrome Surgical History Surgical History (Updated 09/30/22 @ 13:23 by Lis Wiley RN) History of back surgery Hx laparoscopic cholecystectomy (07/04/96) Hx of colonoscopy Status post total hip replacement, bilateral Social History Social History Household Members: [facility] Do you presently have visiting nurse or other home services: No Patient Tobacco Use Status: Former Tobacco user Quit Date: 24 yr ago Years Smoked: 25 yrs e-Cigarette/Vaping Use: Never Used Use of substances other than those prescribed or required for medical reasons: No Are you DNR?: No Advance Directives: No Advance Directives Information Provided: Yes Recently lost weight without trying: No Nutrition Risks: No Nutritional Risk service: No Current occupational status: retired Cognitive needs: No Hearing needs: No Vision needs: No Meds Allergies Allergy/AdvReac Type Severity Reaction Status Date / Time No Known Allergies Allergy Mild NOT Verified 09/30/22 13:39 APPLICABLE Home Medications Medication Instructions Recorded Confirmed Last Taken Type cholecalciferol (vitamin D3) 25 25 mcg PO DAILY 01/25/21 09/30/22 02/14/22 History mcg (1,000 unit) capsule omeprazole 20 mg capsule,delayed 20 mg PO Q2D@0630 01/25/21 10/07/22 10/07/22 History release vitamin E mixed 400 unit capsule 400 unit PO DAILY 01/25/21 09/30/22 02/14/22 History Ca 600 mg-D3 20 mcg-mag oxide 50 1 tab PO DAILY 02/15/22 09/30/22 02/14/22 History bt-Va-ulmyxx-manganese-boron tablet (Calcium 600-D3 Plus (mag-zinc)) oxycodone-acetaminophen 5 mg-325 1 tab PO QD-QID PRN pain 09/30/22 09/30/22 09/30/22 13:00 History mg tablet Exam Exam Date and Time: October 06, 2022 124 Assessment and Plan Assessment Anesthesia Assessment: Chart Reviewed Documented by User: Pasha Valerio MD 10/07/22 07:40 PMFSH Past Medical History Medical History (Updated 09/30/22 @ 13:23 by Lis Wiley RN) Acquired hypothyroidism Arthritis Dyslipidemia Essential hypertension Fatigue GERD (gastroesophageal reflux disease) Ovarian cyst Restless leg syndrome Family History Family history of problems with anesthesia: No Surgical History Surgical History (Updated 09/30/22 @ 13:23 by Lis Wiley RN) History of back surgery Hx laparoscopic cholecystectomy (07/04/96) Hx of colonoscopy Status post total hip replacement, bilateral History of Problems with Anesthesia: No Social History Social History Household Members: [facility] Do you presently have visiting nurse or other home services: No Patient Tobacco Use Status: Former Tobacco user Quit Date: 24 yr ago Years Smoked: 25 yrs e-Cigarette/Vaping Use: Never Used Use of substances other than those prescribed or required for medical reasons: No Are you DNR?: No Advance Directives: No Advance Directives Information Provided: Yes Recently lost weight without trying: No Nutrition Risks: No Nutritional Risk service: No Current occupational status: retired Cognitive needs: No Hearing needs: No Vision needs: No Meds Allergies Allergy/AdvReac Type Severity Reaction Status Date / Time No Known Allergies Allergy Mild NOT Verified 09/30/22 13:39 APPLICABLE Home Medications Medication Instructions Recorded Confirmed Last Taken Type cholecalciferol (vitamin D3) 25 25 mcg PO DAILY 01/25/21 09/30/22 02/14/22 History mcg (1,000 unit) capsule omeprazole 20 mg capsule,delayed 20 mg PO Q2D@0630 01/25/21 10/07/22 10/07/22 History release vitamin E mixed 400 unit capsule 400 unit PO DAILY 01/25/21 09/30/22 02/14/22 History Ca 600 mg-D3 20 mcg-mag oxide 50 1 tab PO DAILY 02/15/22 09/30/22 02/14/22 History un-Hh-mjlptb-manganese-boron tablet (Calcium 600-D3 Plus (mag-zinc)) oxycodone-acetaminophen 5 mg-325 1 tab PO QD-QID PRN pain 09/30/22 09/30/22 09/30/22 13:00 History mg tablet Exam Airway Mallampati Class: II TM Dist: >3cm Neck ROM: Full Heart: ok Lungs: ok Assessment and Plan Assessment Anesthesia Assessment: Anesthesia Plan Discussed Final Anesthetic Review Family History of Problems with Anesthesia: No History of Problems with Anesthesia: No NPO: Yes ASA Class: II Final Preanesthetic Review: No Changes in Pt Med Stat, Meds/Allgs Chart Reviewed, Consent Obtained/Reviewed and Anes Risks/Benef Reviewed Patient Risk: Low Procedure Risk: Low Anesthetic Plan Anesthetic Plan: MAC: and Agree w/ Assess. and Plan Disposition: Standard PACU
[2022-10-07 06:48] VITALS: BMI 23.0
--- NOTE | 2022-10-07 07:03 | PC.NURSE ---
left lateral position for an enema. elisabet well.
[2022-10-07 07:07] VITALS: BP 127/80; PULSE 83; RESP 16; TEMP 36.3; O2SAT 95
[2022-10-07] MEDS: Lactated Ringers 1,000 ML 100 ML IVCONT (07:20)
[2022-10-07] MEDS: Sodium Phosphate,Mono-Dibasic 133 ML ENEMA PR (07:42)
[2022-10-07 08:05] VITALS: BP 93/56; PULSE 83; RESP 18; TEMP 36.3; O2SAT 96
--- NOTE | 2022-10-07 08:16 | P.BOP_ITS ---
Brief Operative Note Date of Service: 10/07/22 Pre-op diagnosis: screening Post-op diagnosis: same Procedure: colonoscopy Surgeon: Mat Diane Anesthesia: MAC Was an [employer] Faculty Member used for this Procedure?: No Estimated blood loss (mL): 0
[2022-10-07 08:19] VITALS: BP 133/83; PULSE 77; RESP 20; TEMP 36.9; O2SAT 98
--- NOTE | 2022-10-07 08:36 | OP_ITS ---
DATE OF SERVICE: 10/05/2022 SURGEON: Mat Diane MD INDICATIONS: Colon cancer screening. PREOPERATIVE DIAGNOSIS: POSTOPERATIVE DIAGNOSIS: PROCEDURE PERFORMED: Colonoscopy to the terminal ileum. ESTIMATED BLOOD LOSS: COMPLICATIONS: ANESTHESIA: Monitored anesthesia care. ASSISTANTS: SPECIMENS: DESCRIPTION OF PROCEDURE: A history and physical was performed. The risks and benefits of the procedure were explained to the patient. Informed consent was obtained. The patient was placed in the left lateral decubitus position. A digital rectal exam was performed and was found to be normal. The Olympus pediatric video colonoscope was introduced into the rectum and advanced to the cecum without difficulty. The cecum was identified by transillumination, palpation, and identification of ileocecal valve. Examination was performed. The scope was removed. She tolerated the procedure well and was returned to the recovery in stable condition. FINDINGS: The terminal ileum was examined and appeared normal. Visualized colonic mucosa was normal. Quality of prep was good. No polyps were identified. There was moderate sigmoid diverticulosis with a few scattered diverticula throughout the remainder of the colon. Retroflexed examination was normal. IMPRESSION: Normal screening colonoscopy. RECOMMENDATIONS: 1. Follow up as needed. 2. Repeat colonoscopy is recommended in 10 years for average risk individuals. MD ALEXANDRA Franco/ELOL / [id number]
== END 2022-10-07 09:10 | disposition home or self-care (01) ==
PROVIDERS: PCP Internal Medicine; Visit Provider Internal Medicine Gastroenterology
PROC: 0DJD8ZZ Inspection of Lower Intestinal Tract, Via Natural or Artificial Opening Endoscopic (ICD-10-PCS; CPT 45378; principal; 2022-10-07 07:30)
DX: Z12.11 Encounter for screening for malignant neoplasm of colon (principal); Z87.19 Personal history of other diseases of the digestive system; K57.30 Diverticulosis of large intestine without perforation or abscess without bleeding; K21.9 Gastro-esophageal reflux disease without esophagitis; I10 Essential (primary) hypertension; G25.81 Restless legs syndrome; E03.9 Hypothyroidism, unspecified; R31.9 Hematuria, unspecified; E78.00 Pure hypercholesterolemia, unspecified; Z79.899 Other long term (current) drug therapy; Z96.643 Presence of artificial hip joint, bilateral; Z87.891 Personal history of nicotine dependence
CPT/HCPCS: G0121

== ENCOUNTER 2022-11-10 11:26 | Outpatient (REF) | payer MEDICARE, OTHER, SELFPAY | END 2022-11-10 11:27 | disposition home or self-care (01) | LOC: HO.LNP 11:26 | PROVIDERS: PCP Internal Medicine; Visit Provider Urology | DX: R31.29 Other microscopic hematuria (principal); N39.0 Urinary tract infection, site not specified; Z87.891 Personal history of nicotine dependence | CPT/HCPCS: 51798; 87086; 87088; 87186; 99212 ==

== ENCOUNTER 2022-11-10 11:26 | Outpatient (AMB) | payer MEDICARE, OTHER, SELFPAY ==
--- NOTE | 2022-11-10 08:35 | MHC.OFFVIS ---
Intake Intake Visit Reasons: 6w post op follow up Intake Note: Fide a 66 year old female presents for a 6 week post op cystoscopy. Patient reports cloudiness in urine, taking cranberry and OTC pyridium prn. Allergies No Known Allergies Allergy (Mild, Verified 11/10/22 11:36) NOT APPLICABLE HPI HPI Comments History of Present Illness Details 11/10/22-- Fide is a 66-year-old female who presents to the office for a follow-up. She was initially evaluated on 09/01/22 as a new patient for microscopic hematuria. The patient had a history of diverticular abscess in January 2022 which was drained by interventional radiology at that time. The patient is former tobacco user.? CTAP with contrast results reviewed?02/20/22?Kidneys: WNL with 1.7 cm cyst in the right kidney. She is status post cystoscopy in the operating room on 09/30/22. Findings at that time noted bladder wall thickening. No suspicious bladder lesion visualized. She also had a urine cytology that was sent on 09/02/22. She reports mild cloudy urine. She denies any discomfort while urinating. Evaluation today ??UA ? 3+ leuk, trace blood. Bladder scan PVR 355 mL. The patient voided again, she missed the collection container but reported that she voided a large amout of urine I have advised Timed voiding every 3 hrs Plan: Timed voiding.I advised the patient not to hold her urine too long and void in a timely basis even though she does not have a strong urge. urine c/s Follow up in 10 months with kidney and bladder ultrasound done prior. [facility] Medical History Acquired hypothyroidism Arthritis Dyslipidemia Essential hypertension Fatigue GERD (gastroesophageal reflux disease) Ovarian cyst Restless leg syndrome Surgical History History of back surgery Hx laparoscopic cholecystectomy (07/04/96) Hx of colonoscopy Status post total hip replacement, bilateral Social History Household Members: Spouse Housing: Condominium Do you presently have visiting nurse or other home services: No Patient Tobacco Use Status: Former Tobacco user Quit Date: 24 yr ago Years Smoked: 25 yrs e-Cigarette/Vaping Use: Never Used service: No Current occupational status: retired Cognitive needs: No Hearing needs: No Vision needs: No Review of Systems Const All systems reviewed & are unremarkable except as noted in HPI and below Reports no additional complaints Eyes Reports no additional complaints ENT Reports no additional complaints Card Denies dyspnea Resp Denies cough and Denies dyspnea GI Reports no additional complaints Reports no additional complaints Musc Reports no additional complaints Skin/Breast Denies rash and Denies unusual bruising Neuro Reports no additional complaints Psych Reports no additional complaints Endo Reports no additional complaints Thierno/Lymph Reports no additional complaints Aller/Immun Reports no additional complaints Physical Exam Const General: cooperative, healthy appearing and no acute distress Orientation/consciousness: patient oriented x3 HEENT Head: Yes normal to inspection, Yes normocephalic and Yes atraumatic Eyes Conjunctivae: conjunctivae normal Neck Neck: Yes normal visual inspection and Yes trachea midline Chest Chest palpation & inspection: normal inspection of the chest Resp Effort & Inspection: normal respiratory effort Cardio Rate: regular rate GI Inspection: Yes normal to inspection Skin General skin exam: no rashes or lesions noted Neuro General: patient oriented x3 Extrem General: No edema Psych Appearance: grossly normal Office Procedures Post Void Residual Post Residual Void Post Void Residual (PVR): 355 [id number] Void Residual by ultrasound Results AMB Urinalysis, Automated UA Leukoctes 500 Mary/uL Last Edit by PEPITO Branch on 11/10/22 11:56 UA Nitrite Positive Last Edit by Jaki Franco Armida on 11/10/22 11:56 UA Urobilinogen 0.2 mg/dL Last Edit by PEPITO Branch on 11/10/22 11:56 UA Protein 15 mg/dL Last Edit by Jaki Franco Armida on 11/10/22 11:56 UA pH 6.0 Last Edit by PEPITO Branch on 11/10/22 11:56 UA Blood 10 Skinny/uL Last Edit by Jaki Franco Armida on 11/10/22 11:56 UA Specific [place] 1.010 Last Edit by PEPITO Branch on 11/10/22 11:56 UA Ketone Negative Last Edit by PEPITO Branch on 11/10/22 11:56 UA Bilirubin 0 mg/dL Last Edit by PEPITO Branch on 11/10/22 11:56 UA Glucose 0 mg/dL Last Edit by PEPITO Branch on 11/10/22 11:56 Results Reviewed Results Reviewed: Date - Diagnosis Urine:? Negative for high-grade urothelial carcinoma.? See comment. COMMENT: Moderately cellular specimen consisting of single urothelial cells, squamous cells, red blood cells, crystals and few lymphocytes. Assessment & Plan Assessment & Plan (1) Microscopic hematuria: Code(s): R31.29 - Other microscopic hematuria (2) Microscopic hematuria: Code(s): R31.29 - Other microscopic hematuria (3) History of tobacco use: Code(s): Z87.891 - Personal history of nicotine dependence Plan Timed voiding.I advised the patient not to hold her urine too long and void in a timely basis even though she does not have a strong urge. urine c/s Follow up in 10 months with kidney and bladder ultrasound done prior. Orders: Orders US retroperitoneal comp 9 Months N39.0 - Urinary tract infection, site not specified, R31.29 - Other microscopic hematuria AMB Urinalysis Automated Today Z13.9 - Encounter for screening, unspecified AMB Post Void Residual by ultrasound Today R31.29 - Other microscopic hematuria Patient Instructions: The patient had an opportunity to ask questions regarding treatment plan. All questions were answered. Imaging, Laboratory studies and physical exam results were discussed and reviewed in detail. No major barriers to understanding were identified. The patient expressed understanding and agreement with the above treatment plan. The patient is aware they should contact our office by phone for worsening of their current condition or the appearance of new symptoms. Compliance is encouraged with any medications and followup testing that is ordered. It is a privilege to be allowed the opportunity to participate in the urologic care of your patient. If you have any questions or concerns regarding treatment for the above conditions please do not hesitate to contact me. The office telephone contact is [phone]. This note is constructed in part using voice recognition software. While every effort has been made to ensure accuracy temporary administrative assistant errors may have been included. Yours sincerely, Cr Gallardo MD Coding Level of Care Code Est Pt Level 3 (84964) Diagnoses Microscopic hematuria R31.29 History of tobacco use Z87.891 CPT Codes Post Residual Void - PVR CPT Code: 12527-Dbmq Void Residual by ultrasound ([id number])
== END 2022-11-10 11:57 | disposition home or self-care (01) ==
PROVIDERS: PCP Internal Medicine; Visit Provider Urology
DX: R31.29 Other microscopic hematuria (principal); Z87.891 Personal history of nicotine dependence
CPT/HCPCS: 99213

== ENCOUNTER → 2023-02-16 10:57 | Outpatient (BNVA) | payer MEDICARE, OTHER, SELFPAY | PROVIDERS: PCP Internal Medicine; Visit Provider Internal Medicine Rheumatology ==

== ENCOUNTER 2023-03-07 10:17 | Outpatient (REF) | payer MEDICARE, OTHER, SELFPAY | END 2023-03-07 10:18 | disposition home or self-care (01) | LOC: HO.MAMMO 10:17 | PROVIDERS: PCP Internal Medicine; Visit Provider Internal Medicine | DX: Z12.31 Encounter for screening mammogram for malignant neoplasm of breast (principal) | CPT/HCPCS: 77063; 77067 ==

== ENCOUNTER → 2023-03-07 10:30 | Outpatient (BNV) | payer MEDICARE, OTHER, SELFPAY | PROVIDERS: PCP Internal Medicine; Visit Provider Radiology Diagnostic Radiology | DX: Z12.31 Encounter for screening mammogram for malignant neoplasm of breast (principal) | CPT/HCPCS: 77063; 77067 ==

== ENCOUNTER 2023-03-24 10:07 | Outpatient (REF) | payer MEDICARE, OTHER, SELFPAY ==
[2023-03-24 12:21] LABS: Appearance Urine Turbid; Color Urine Yellow; Glucose Urine UA Negative (Negative); Leukocyte Esterase Urine Large (3+) (Negative); Nitrite Urine Positive (Negative); PH 6.5 (5.0-9.0); UMIC TRIGGER UA YES; Urine Blood Moderate (2+) (Negative); Urine Ketones Negative (Negative); Urine Protein 30 (1+) mg/dL (Neg-Trace)
[2023-03-24 12:33] LABS: Bacteria Urine 4+ (None Seen); Hyaline Casts Urine 0-2 /LPF (0-2); RBC Urine 0-2 /HPF (0-2); WBC Urine >50 /HPF (0-5)
== END 2023-03-24 10:08 | disposition home or self-care (01) ==
LOC: HO.LAB 10:07
PROVIDERS: PCP Internal Medicine; Visit Provider Urology
DX: N39.0 Urinary tract infection, site not specified (principal)
CPT/HCPCS: 81001; 87086; 87088; 87186

== ENCOUNTER → 2023-04-24 10:56 | Outpatient (BNVA) | payer MEDICARE, OTHER, SELFPAY | PROVIDERS: PCP Internal Medicine; Visit Provider Urology | DX: N39.0 Urinary tract infection, site not specified (principal) | CPT/HCPCS: 51701 ==

== ENCOUNTER 2023-05-15 11:03 | Outpatient (REF) | payer MEDICARE, OTHER, SELFPAY | END 2023-05-15 11:04 | disposition home or self-care (01) | LOC: HO.LAB 11:03 | PROVIDERS: PCP Internal Medicine; Visit Provider Urology | DX: N39.0 Urinary tract infection, site not specified (principal) | CPT/HCPCS: 87086; 87088; 87186 ==

== ENCOUNTER 2023-05-22 11:34 | Outpatient (REF) | payer MEDICARE, OTHER, SELFPAY ==
[2023-05-22 13:17] LABS: MANUAL DIFF FLAG NO
[2023-05-22 13:44] LABS: Basophils Absolute Auto 0.1 X10*3/uL (0.0-0.2); Eosinophils Absolute Auto 0.3 X10*3/uL (0.0-0.4); Eosinophils Percent Auto 3.8 % (0-4); Hematocrit 39.1 % (37.0-47.0); Hemoglobin 12.2 g/dl (12.0-16.0); Imm Gran Abs Auto 0.03 X10*3/uL (0.00-0.03); Imm Gran Pct Auto 0.4 % (0.0-0.4); Lymphocytes Absolute Auto 1.7 X10*3/uL (1.2-4.9); Lymphocytes Percent Auto 21.6 % (20-40); Mean Corpuscular HGB Conc 31.2 g/dl (31.0-35.0); Mean Corpuscular Hemoglobin 29.6 pg (27.0-33.0); Mean Corpuscular Volume 94.9 fL (80.0-98.0); Mean Platelet Volume 10.1 fL (9.4-12.3); Monocytes Absolute Auto 0.6 X10*3/uL (0.1-1.2); Monocytes Percent Auto 8.2 % (2-11); Platelet Count 363 X10*3/uL (160-400); Red Blood Count 4.12 X10*6/uL (4.20-5.50); Red Cell Distribution Width 13.3 % (11.0-16.0); White Blood Count 7.7 X10*3/uL (4.8-10.8)
[2023-05-22 14:24] LABS: Alanine Aminotransferase 12 U/L (0-31); Anion Gap 13 (12-20); Aspartate Amino Transferase 17 U/L (5-31); Blood Urea Nitrogen 12 mg/dL (9-16); Calcium 9.8 mg/dL (8.4-10.2); Carbon Dioxide 28 mmol/L (22-29); Chloride 102 mmol/L (96-108); Cholesterol 124 mg/dL (<200); Estimated Glomerular Filt Rate > 60; Glucose Fasting 87 mg/dL (60-99); HDL Cholesterol 43 mg/dL (>40); LDL Cholesterol Calculated 61 mg/dL (<100); Potassium 3.9 mmol/L (3.3-5.1); Sodium 139 mmol/L (135-145); Triglycerides 100 mg/dL (<150)
[2023-05-22 14:41] LABS: Free T4 (Free Thyroxine) 1.38 ng/dL (0.71-1.85); Thyroid Stimulating Hormone 0.43 uIU/mL (0.32-4.0); Vitamin D 25-OH Total 64.2 ng/mL (>30)
== END 2023-05-22 11:35 | disposition home or self-care (01) ==
LOC: HO.HMGCLDS 11:34
PROVIDERS: PCP Internal Medicine; Visit Provider Internal Medicine
DX: E03.9 Hypothyroidism, unspecified (principal); G25.81 Restless legs syndrome; E78.5 Hyperlipidemia, unspecified; I10 Essential (primary) hypertension; R31.29 Other microscopic hematuria; M85.80 Other specified disorders of bone density and structure, unspecified site; Z78.0 Asymptomatic menopausal state
CPT/HCPCS: 36415; 80048; 80061; 82306; 84439; 84443; 84450; 84460; 85025

== ENCOUNTER 2023-05-29 10:20 | Outpatient (AMB) | payer MEDICARE, OTHER, SELFPAY ==
[2023-05-29 10:33] VITALS: BP 90/64; PULSE 80; O2SAT 95; BMI 21.8
--- NOTE | 2023-05-29 10:33 | A.OFFPC_ITS ---
Vital Signs 05/29/23 10:33 Height 5 ft 2 in Weight 119 lb BMI 21.8 BP 90/64 Blood Pressure Location Lt brachial Position Sitting Pulse 80 Pulse Source Pulse Oximeter Pulse Oximetry (%) 95 Oxygen Delivery Method Room Air Intake Visit Reasons: Med review Intake Note: Pt is here today for her med review Allergies levofloxacin Adverse Reaction (Severe, Uncoded 05/29/23 11:00) Joint Pain Medication List - Last Reconciled 05/29/23 by Mami Wang MD atenolol 25 mg PO DAILY Ca-D3-mag ub-aczx-xsg-kendall-bor 600 mg calcium- 20 mcg-50 mg (Calcium 600-D3 Plus (mag-zinc)) 1 tab PO DAILY cholecalciferol (vitamin D3) 25 mcg PO DAILY fosfomycin tromethamine 1 packet PO Q OTHER DAY 14 days gabapentin 600 mg PO BEDTIME levothyroxine 75 mcg PO DAILY lorazepam 0.5 mg PO DAILY PRN omeprazole 20 mg PO Q2D@0630 oxycodone-acetaminophen 5-325 mg 1 tab PO QD-QID PRN rosuvastatin 5 mg PO BEDTIME vitamin E mixed 400 units PO DAILY Tobacco use date assessed: 05/29/23 Fall risk assessment: No Falls in past year Last assessed Fall Risk: 05/29/23 Dental Screening Dental Screen Date: 05/29/23 Did you have a dental visit in the last 12 months?: Yes Did you have a dental problem in the last 6 months where you did not have access to dental care?: No Was dental information given to patient?: Patient has dentist HPI Med review HPI Details 67-year-old lady with hypertension, hype rlipidemia, acquired hypothyroidism, restless leg syndrome, here today for her follow-up. She has been compliant with taking her medications, adheres to healthy eating habits and tries to exercise as much as she can. Has been feeling well with no complaints at present time. [facility] Medical History (Updated 05/29/23 @ 11:18 by Mami Wang MD) Osteoarthritis Osteopenia of left forearm Arthritis GERD (gastroesophageal reflux disease) Ovarian cyst Essential hypertension Dyslipidemia Restless leg syndrome Acquired hypothyroidism Fatigue Surgical History Hx of colonoscopy History of back surgery Status post total hip replacement, bilateral Hx laparoscopic cholecystectomy (07/04/96) Social History Household Members: Spouse Housing: Condominium Do you presently have visiting nurse or other home services: No Patient Tobacco Use Status: Former Tobacco user Quit Date: 24 yr ago Years Smoked: 25 yrs e-Cigarette/Vaping Use: Never Used service: No Current occupational status: retired Cognitive needs: No Hearing needs: No Vision needs: Yes Questionnaire PHQ-9 Over the last 2 weeks, how often have you been bothered by any of the following problems? 1. Little interest or pleasure in doing things: not at all 2. Feeling down, depressed, or hopeless: not at all 3. Trouble falling or staying asleep, or sleeping too much: not at all 4. Feeling tired or having little energy: not at all 5. Poor appetite or overeating: not at all 6. Feeling bad about yourself - or that you are a failure or have let yourself or your family down: not at all 7. Trouble concentrating on things, such as reading the newspaper or watching television: not at all 8. Moving or speaking so slowly that other people could have noticed. Or the opposite - being so fidgety or restless that you have been moving around a lot more than usual: not at all 9. Thoughts that you would be better off or of hurting yourself in some way: not at all Total score: 0 Depression Screening Interpretation: Negative Depression Screening Done: Yes 44749 - PHQ-9 Billing: Yes Source: Developed by Drs. Piyush Santiago, Abimbola Palafox, Seth Omer and colleagues, with an educational mike from [employer]. Thrive Questionnaire Date Thrive assessed: 05/29/23 I am a: Patient What is your living situation today?: I have a steady place to live Within the past 12 months, did the food you bought not last and you didn't have the money to get more?: Never true Within the past 12 months, did you worry whether your food would run out before you got money to buy more?: Never true Do you have trouble paying for medicines?: No Do you have trouble getting transportation to medical appointments?: No Do you have trouble paying your heating and electricity bill?: No Do you have trouble taking care of your child, family member or friend?: No Do you have trouble with day-to-day activities such as bathing, preparing meals, shopping, managing finances, etc.?: No Are you currently unemployed and looking for a job?: No Are you interested in more education?: No THRIVE Score: 0 COURTNEY-7 AMB Questionnaire COURTNEY-7 Date COURTNEY - 7 assessed: 05/29/23 Feeling nervous, anxious, or on edge: 0 = Not at all Not being able to stop or control worryin = Not at all Worrying too much about different things: 0 = Not at all Trouble relaxin = Not at all Being so restless that it is hard to sit still: 0 = Not at all Becoming easily annoyed or irritable: 0 = Not at all Feeling afraid as if something awful might happen: 0 = Not at all Total COURTNEY-7 score (0-4 normal; 5-9 mild; 10-14 moderate; 15-21 severe): 0 Source: Developed by Drs. Piyush Santiago, Abimbola Palafox, Seth Omer and colleagues, with an educational mike from [employer]. COURTNEY-7 Assessment Billing COURTNEY-7 Assessment Tool: COURTNEY-7 Assessment 37670 Review of Systems Const All systems reviewed & are unremarkable except as noted in HPI and below Reports no additional complaints Eyes Reports no additional complaints ENT Reports no additional complaints Card Denies dyspnea Resp Denies cough and Denies dyspnea GI Reports no additional complaints Reports no additional complaints Musc Reports no additional complaints Skin/Breast Denies rash and Denies unusual bruising Neuro Reports no additional complaints Psych Reports no additional complaints Endo Reports no additional complaints Thierno/Lymph Reports no additional complaints Aller/Immun Reports no additional complaints Physical exam (Primary Care) Vital Signs: Last Vital Signs Pulse 80 05/29/23 10:33 BP 90/64 05/29/23 10:33 Pulse Ox 95 05/29/23 10:33 Oxygen Delivery Method Room Air 05/29/23 10:33 BMI result Body Mass Index 21.8 Tobacco/Smoking Status: Tobacco use Status Tobacco use date assessed 05/29/23 05/29/23 10:40 Patient Tobacco Use Status Former Tobacco user 05/29/23 10:40 e-Cigarette/Vaping Use Never Used 05/29/23 10:40 PHQ-9: PHQ-9 Score PHQ-9: Total score 0 05/29/23 11:22 Depression Screening Interpretation: Negative Thrive Assessment: Date of Thrive Assessment Date Thrive assessed 05/29/23 05/29/23 10:40 Const General: cooperative, comfortable and no acute distress Orientation/consciousness: patient oriented x3 Limitations: no limitations HENMT Ears: external ears normal and EAC's normal General nose exam: Normal external nose present, Normal nasal mucous membranes and turbinates present and No nasal discharge present Mouth: oropharynx normal and moist mucous membranes Eyes General: appearance normal, both eyes and all related structures Neck Neck: Yes full ROM, Yes no lymphadenopathy and Yes supple Resp Effort & Inspection: normal respiratory effort and able to speak in complete sentences Auscultation: clear to auscultation bilaterally Cardio Rate: regular rate Rhythm: regular rhythm Heart sounds: S1 normal heart sound present and S2 normal heart sound present GI Other: Intact drain right buttock, with no erythema or tenderness on palpation Inspection: Yes normal to inspection Palpation (GI): Soft to palpation, nontender and no masses Auscultation: normal bowel sounds Skin General skin exam: no rashes or lesions noted Neuro General: patient oriented x3, gait normal, tone normal, moves all extremities, Normal light touch and pain sensation and no focal motor deficits Cognition (Neuro): normal cognition Gait exam (Neuro): Normal gait present Motor exam (neuro): 5/5 motor strength present throughout Extrem General: Yes full ROM, Yes no joint enlargement, Yes no pedal edema, Yes no calf tenderness and Yes normal gait Psych Appearance: grossly normal and well kempt Mental Status: mental status grossly normal Speech and movement: Normal speech and movement present Affect: normal affect Attitude: cooperative Thought process: Normal thought process present Immunizations pneumoc 20-arley conj-dip cr(PF) 0.5 mL IM syringe Performing Provider: Mami Wang MD Performing Location: [facility] Administered by: Sadie Clifford CMA on 05/29/23 11:22 Dose Route Admin Location Dispensed Lot Number Expiration Date NDC [employer] 0.5 mL IM Left Deltoid 0.5 mL [id number] 12/26/23 8749-6555-55 [employer] VIS Given Date VIS Provided VIS Publication Date 05/29/23 Single Vaccine 21 Eligibility Eligibility Date Funding Source Not VFC Eligible 05/29/23 Private Results Reviewed Results Reviewed: Name: Fide Edward Age/Sex: 67/F : 1955 Unit#: [id number] Attend Dr: Mami Wang MD Re05/22/23 Status: DEP REF Location: [facility] Disch: SPEC : [id number] SAMMIE: 05/22/23 STATUS: COMP REQ : [id number] RECD: 05/22/[address]: Mami Wang MD COMP: 05/22/23 ENTERED: 05/22/[address] [facility] [address]: ORDERED: CBC Auto Diff Test Result Flag Reference WBC 7.7 4.8-10.8 X10*3/uL RBC 4.12 L 4.20-5.50 X10*6/uL HGB 12.2 12.0-16.0 g/dl HCT 39.1 37.0-47.0 % MCV 94.9 80.0-98.0 fL MCH 29.6 27.0-33.0 pg MCHC 31.2 31.0-35.0 g/dl RDW 13.3 11.0-16.0 % PLT 363 160-400 X10*3/uL RUN: 05/29/23 1056 PAGE 1 [facility] [address] [place] [id number] Ham Smoker: Julian Cisneros M.D. Specimen Inquiry Name: Fide Edward Age/Sex: 67/F : 1955 Unit#: [id number] Attend Dr: Mami Wang MD Re05/22/23 Status: DEP REF Location: [facility] Disch: SPEC : [id number] SAMMIE: 05/22/23 STATUS: COMP REQ : [id number] RECD: 05/22/23-[address]: Mami Wang MD COMP: 05/22/23-144 ENTERED: 05/22/23-[address]: ORDERED: Met Prof Fast, AST, ALT, Lipid Panel, Vitamin D 25-OH, Free T4, TSH Test Result Flag Reference Sodium 139 135-145 mmol/L Potassium 3.9 3.3-5.1 mmol/L CL 102 96-108 mmol/L CO2 28 22-29 mmol/L Gap 13 12-20 BUN 12 9-16 mg/dL Creat 0.68 0.5-1.4 mg/dL EGFR > 60 NOTE: For -[place]inamese individuals, multiply the result by 1.210. Chronic Kidney Disease: Estimated GFR < 60 mL/min/1.73m2 Severe Kidney Disease: Estimated GFR < 15 mL/min/1.73m2 FBS 87 60-99 mg/dL CA 9.8 8.4-10.2 mg/dL AST (GOT) 17 5-31 U/L ALT (GPT) 12 0-31 U/L Triglyceride 100 <150 mg/dL Desirable Triglyceride: less than 150 mg/dL Borderline High Triglyceride 150-199 mg/dL High Triglyceride: 200-499 mg/dL Very High Triglyceride: greater than or equal to 5OO mg/dL Cholesterol 124 <200 mg/dL Desirable Cholesterol: less than 200 mg/dL Borderline High Cholesterol: 200-239 mg/dL High Cholesterol: greater than 239 mg/dL LDL Calculated 61 <100 mg/dL Desirable LDL: less than 100 mg/dL Near Optimal/Above Optimal LDL: 110-129 mg/dL Borderline High LDL: 130-159 mg/dL High LDL: 160-189 mg/dL Very High LDL: greater than or equal to 190 mg/dL HDL 43 >40 mg/dL Desirable HDL: greater than 40 mg/dL Note: This HDL assay may give artificially low results in patients with liver disease. Vit D 25-OH Tot 64.2 >30 ng/mL Health Based Reference Values* < 20 ng/mL Deficient 20-30 ng/mL Insufficient > 30 ng/mL Sufficient *Holick MF. N Engl J Med. 2007;357:266-280 Care must be taken in interpreting Vitamin D results from different laboratories and methodologies. Published data demonstrated that results from patients undergoing hemodialysis may show a negative bias when tested with various automated 25-OH vitamin D assays when compared to LC-MS/MS. When testing samples from patients whose predominant form of Vitamin D is Vitamin D2, such as patients receiving Vitamin D2 supplementation, results that are subtherapeutic should be confirmed with another method such as LC-MS/MS. Free T4 1.38 0.71-1.85 ng/dL TSH 3rd Gen. 0.43 0.32-4.0 uIU/mL Assessment and Plan Assessment & Plan (1) Essential hypertension: Code(s): I10 - Essential (primary) hypertension Plan: Blood pressure at goal of less than 130/80. Continue with current medication. Reinforced importance of following a low sodium diet, getting regular exercise, and lowering stress levels. (2) Restless leg syndrome: Code(s): G25.81 - Restless legs syndrome Plan: CBC normal, continue gabapentin 600 mg at bedtime (3) Dyslipidemia: Code(s): E78.5 - Hyperlipidemia, unspecified Plan: Reviewed recent fasting lipid profile with patient with levels within normal limits . Continue with rosuvastatin 5 mg at bedtime , in addition to adherence to low-cholesterol diet and regular exercise, at least 30 minutes 3 to 4 times a week. Advised patient to make healthy food choices, eat more fruits, vegetables, whole grains, wild caught fish and low-fat dairy. Limit amount of meat and fried or fatty food products, as well as processed foods and fast foods. Follow-up scheduled with repeat fasting lipid panel in 6 months. (4) Acquired hypothyroidism: Code(s): E03.9 - Hypothyroidism, unspecified Plan: Thyroid levels are also within normal limits. Continue with current dose of levothyroxine 75 mcg daily (5) Need for pneumococcal 20-valent conjugate vaccination: Code(s): Z23 - Encounter for immunization Plan: Prevnar 20 given today Orders: Orders Basic Metabolic Panel Fasting 10/12/23 E03.9 - Hypothyroidism, unspecified, E78.5 - Hyperlipidemia, unspecified, G25.81 - Restless legs syndrome, I10 - Essential (primary) hypertension, M19.90 - Unspecified osteoarthritis, unspecified site, M85.832 - Other specified disorders of bone density and structure, left forearm Thyroid Stimulating Hormone 10/12/23 E03.9 - Hypothyroidism, unspecified, E78.5 - Hyperlipidemia, unspecified, G25.81 - Restless legs syndrome, I10 - Essential (primary) hypertension, M19.90 - Unspecified osteoarthritis, unspecified site, M85.832 - Other specified disorders of bone density and structure, left forearm Pneumococcal 20 Immunization 05/29/23 Z23 - Encounter for immunization Alanine Aminotransferase 10/12/23 E03.9 - Hypothyroidism, unspecified, E78.5 - Hyperlipidemia, unspecified, G25.81 - Restless legs syndrome, I10 - Essential (primary) hypertension, M19.90 - Unspecified osteoarthritis, unspecified site, M85.832 - Other specified disorders of bone density and structure, left forearm Aspartate Amino Transferase 10/12/23 E03.9 - Hypothyroidism, unspecified, E78.5 - Hyperlipidemia, unspecified, G25.81 - Restless legs syndrome, I10 - Essential (primary) hypertension, M19.90 - Unspecified osteoarthritis, unspecified site, M85.832 - Other specified disorders of bone density and structure, left forearm Lipid Panel 10/12/23 E03.9 - Hypothyroidism, unspecified, E78.5 - Hyperlipidemia, unspecified, G25.81 - Restless legs syndrome, I10 - Essential (primary) hypertension, M19.90 - Unspecified osteoarthritis, unspecified site, M85.832 - Other specified disorders of bone density and structure, left forearm Vitamin D 25-OH Total 10/12/23 E03.9 - Hypothyroidism, unspecified, E78.5 - Hyperlipidemia, unspecified, G25.81 - Restless legs syndrome, I10 - Essential (primary) hypertension, M19.90 - Unspecified osteoarthritis, unspecified site, M85.832 - Other specified disorders of bone density and structure, left forearm Free T4 (Free Thyroxine) 10/12/23 E03.9 - Hypothyroidism, unspecified, E78.5 - Hyperlipidemia, unspecified, G25.81 - Restless legs syndrome, I10 - Essential (primary) hypertension, M19.90 - Unspecified osteoarthritis, unspecified site, M85.832 - Other specified disorders of bone density and structure, left forearm Coding Level of Care Code Est Pt Level 4 (96869) Diagnoses Essential hypertension I10 Restless leg syndrome G25.81 Dyslipidemia E78.5 Acquired hypothyroidism E03.9 Need for pneumococcal 20-valent conjugate vaccination Z23 Additional Codes COURTNEY-7 Assessment Billing - COURTNEY-7 Assessment Tool: COURTNEY-7 Assessment [id number] ([id number])
== END 2023-05-29 12:06 | disposition home or self-care (01) ==
PROVIDERS: PCP Internal Medicine; Visit Provider Internal Medicine
DX: Z23 Encounter for immunization (principal)
CPT/HCPCS: 90471; 90677; 99214

== ENCOUNTER 2023-08-07 10:02 | Outpatient (REF) | payer MEDICARE, OTHER, SELFPAY ==
--- NOTE | ~2023-08-07 | US_ITS ---
EXAMINATION: US RETROPERITONEAL COMPLETE (RENAL) CLINICAL INFORMATION: Urinary tract infection, site not specified. COMPARISON: CT abdomen and pelvis 02/20/2022. TECHNIQUE: Real-time imaging of the kidneys and bladder. FINDINGS: RIGHT KIDNEY: 9.7 x 5.0 x 5.8 cm (SAG x AP x TRV). The kidney is normal in size, contour, and echogenicity. Renal cortical thickness is normal. No hydronephrosis. At the lower pole, a 5 mm nonobstructing calculus is seen. At the upper pole, a 7 mm benign, simple cyst is seen, for which no imaging follow-up is recommended. LEFT KIDNEY: 11.5 x 5.5 x 4.7 cm (SAG x AP x TRV). The kidney is normal in size, contour, and echogenicity. Renal cortical thickness is normal. No calculi or focal parenchymal lesions. No hydronephrosis. BLADDER: Well distended and normal. Bilateral ureteral jets are not demonstrated. Prevoid bladder volume is 343 mL. Postvoid bladder volume is 220 mL. Mild dependent debris is noted within the urinary bladder. US/US retroperitoneal comp IMPRESSION: 1. A 5 mm nonobstructing right renal calculus is seen. No left renal calculus is seen. No hydronephrosis is noted bilaterally. 2. There is an increased postvoid residual volume. 3. There is debris within the urinary bladder, for which correlation with the patient's most recent urinalysis is recommended.
== END 2023-08-07 10:03 | disposition home or self-care (01) ==
LOC: HO.US 10:02
PROVIDERS: PCP Internal Medicine; Visit Provider Urology
DX: N39.0 Urinary tract infection, site not specified (principal); R31.29 Other microscopic hematuria
CPT/HCPCS: 76770

== ENCOUNTER 2023-08-21 09:58 | Outpatient (AMB) | payer MEDICARE, OTHER, SELFPAY ==
--- NOTE | 2023-08-21 10:00 | A.OFFVIS_ITS ---
Intake Visit Reasons: recurrent UTI/UTI prevention Intake Note: Patient is present for a follow-up on UTI Prevention: Urology Med: None Antibiotic Allergy: None Blood Thinner: None Glue Spreading Machine Operator Required: No Accompanied by: Self / Same As Patient Allergies levofloxacin Adverse Reaction (Severe, Uncoded 08/21/23 10:01) Joint Pain HPI Comments Details: 08/21/2023---Fide is here for follow-up she has had symptomatic recurrent UTIs. On review of her chart she had a culture positive UTI in February and April. She states that since the UTI in April she has not had UTI symptoms of dysuria or bladder pressure. She did however have some upper respiratory tract symptoms and was on prednisone and amoxicillin in June. She is here in follow-up and had a renal ultrasound done. Urinalysis nitrite positive, 3+ leukocytes. I have reviewed renal ultrasound performed on 08/07/2023-- 5 mm nonobstructing right renal calculus is seen. (this is a new finding not noted on prior CT scan 01/2022) No left renal calculus is seen. No hydronephrosis is noted bilaterally. debris within the urinary bladder.. Review of chart: 11/10/22-- Fide is a 66-year-old female who presents to the office for a follow-up. She was initially evaluated on 09/01/22 as a new patient for microscopic hematuria. The patient had a history of diverticular abscess in January 2022 which was drained by interventional radiology at that time. The patient is former tobacco user.? CTAP with contrast results reviewed?02/20/22?Kidneys: WNL with 1.7 cm cyst in the right kidney. She is status post cystoscopy in the operating room on 09/30/22. Findings at that time noted bladder wall thickening. No suspicious bladder lesion visualized. She also had a urine cytology that was sent on 09/02/22. (Negative for malignant cells) She reports mild cloudy urine. She denies any discomfort while urinating. Evaluation today ??UA ? 3+ leuk, trace blood. Bladder scan PVR 355 mL. The patient voided again, she missed the collection container but reported that she voided a large amout of urine I have advised Timed voiding every 3 hrs 08/21/2023 Plan: Urine for culture. Will wait results prior to starting antibiotics as the patient is not having symptoms today. Follow-up in 4 months, monitor kidney stone. [facility] Medical History Osteoarthritis Osteopenia of left forearm Arthritis GERD (gastroesophageal reflux disease) Ovarian cyst Essential hypertension Dyslipidemia Restless leg syndrome Acquired hypothyroidism Fatigue Surgical History Hx of colonoscopy History of back surgery Status post total hip replacement, bilateral Hx laparoscopic cholecystectomy (07/04/96) Social History Household Members: Spouse Housing: [facility] Do you presently have visiting nurse or other home services: No Patient Tobacco Use Status: Former Tobacco user Quit Date: 24 yr ago Years Smoked: 25 yrs e-Cigarette/Vaping Use: Never Used service: No Current occupational status: retired Cognitive needs: No Hearing needs: No Vision needs: Yes Review of Systems Const All systems reviewed & are unremarkable except as noted in HPI and below Reports no additional complaints Eyes Reports no additional complaints ENT Reports no additional complaints Card Reports no additional complaints Resp Reports no additional complaints GI Reports no additional complaints Reports as per HPI Musc Reports no additional complaints Skin/Breast Reports system reviewed and no additional complaints, except as documented Neuro Reports no additional complaints Psych Reports no additional complaints Endo Reports no additional complaints Thierno/Lymph Reports no additional complaints Aller/Immun Reports no additional complaints Results AMB Urinalysis, Automated UA Leukoctes 500 Mary/uL Last Edit by PEPITO Dubon on 08/21/23 10:13 3+ Fredy Robles 08/21/23 10:13 UA Nitrite Positive Last Edit by PEPITO Dubon on 08/21/23 10:13 UA Urobilinogen 0.2 mg/dL Last Edit by PEPITO Dubon on 08/21/23 10:1 3 UA Protein 0 mg/dL Last Edit by Fredy Travis, A on 08/21/23 10:13 UA pH 6.5 Last Edit by Fredy Robles A on 08/21/23 10:13 UA Blood 25 Skinny/uL Last Edit by Fredy Robles A on 08/21/23 10:13 1+ Fredy Robles 08/21/23 10:13 UA Specific [place] 1.010 Last Edit by Fredy Travis, A on 08/21/23 10: 13 UA Ketone Negative Last Edit by Fredy Travis, A on 08/21/23 10:13 UA Bilirubin 0 mg/dL Last Edit by Fredy Robles A on 08/21/23 10:13 UA Glucose 0 mg/dL Last Edit by Bettyemaximiliano Travis, A on 08/21/23 10:13 Results Reviewed Results Reviewed: Laboratory Last Values Urine pH (Auto) 6.5 08/21/23 10:06 Specific [place] (Auto) 1.010 08/21/23 10:06 Urine Protein (Auto) 0 mg/dL 08/21/23 10:06 Glucose (UA)(Auto) 0 mg/dL 08/21/23 10:06 Urine Ketones (Auto) Negative 08/21/23 10:06 Urine Blood (Auto) 25 Skinny/uL 08/21/23 10:06 Urine Nitrite (Auto) Positive 08/21/23 10:06 Urine Bilirubin (Auto) 0 mg/dL 08/21/23 10:06 Urine Urobilinogen (Auto) 0.2 mg/dL 08/21/23 10:06 Leukocyte Esterase (Auto) 500 Mary/uL 08/21/23 10:06 Date of Service: 08/07/23 EXAMINATION: US RETROPERITONEAL COMPLETE (RENAL) CLINICAL INFORMATION: Urinary tract infection, site not specified. COMPARISON: CT abdomen and pelvis 02/20/2022. TECHNIQUE: Real-time imaging of the kidneys and bladder. FINDINGS: RIGHT KIDNEY: 9.7 x 5.0 x 5.8 cm (SAG x AP x TRV). The kidney is normal in size, contour, and echogenicity. Renal cortical thickness is normal. No hydronephrosis. At the lower pole, a 5 mm nonobstructing calculus is seen. At the upper pole, a 7 mm benign, simple cyst is seen, for which no imaging follow-up is recommended. LEFT KIDNEY: 11.5 x 5.5 x 4.7 cm (SAG x AP x TRV). The kidney is normal in size, contour, and echogenicity. Renal cortical thickness is normal. No calculi or focal parenchymal lesions. No hydronephrosis. BLADDER: Well distended and normal. Bilateral ureteral jets are not demonstrated. Prevoid bladder volume is 343 mL. Postvoid bladder volume is 220 mL. Mild dependent debris is noted within the urinary bladder. IMPRESSION: 1. A 5 mm nonobstructing right renal calculus is seen. No left renal calculus is seen. No hydronephrosis is noted bilaterally. 2. There is an increased postvoid residual volume. 3. There is debris within the urinary bladder, for which correlation with the patient's most recent urinalysis is recommended. Collected: 05/15/23 Status: COMP Req#: [id number] Received: 05/15/23 Source: [facility] Sp Desc: Clean Cat Subm Dr: Cr Gallardo MD Ordered: Urine Culture Procedure Result Verified Urine Culture Final 05/17/23 Organism 1 Pseudomonas aeruginosa Quant 10,000 to 50,000 cfu/mL P aerugino M.I.C. RX --------- --- Cefepime 2 S Gentamicin 4 S Levofloxacin <=0.12 S Meropenem <=0.25 S Piperacillin/Tazobactam 8 S Collected: 03/24/23 Status: COMP Req#: [id number] Received: 03/24/23 Source: [facility] Sp Desc: Clean Cat Subm Dr: Cr Gallardo MD Ordered: Urine Culture Procedure Result Verified Urine Culture Final 03/26/23075 Organism 1 Pseudomonas aeruginosa Quant > 100,000 cfu/mL P aerugino M.I.C. RX --------- --- Cefepime 2 S Gentamicin <=1 S Levofloxacin <=0.12 S Meropenem <=0.25 S Piperacillin/Tazobactam <=4 S Assessment & Plan Assessment & Plan (1) Microscopic hematuria: Code(s): R31.29 - Other microscopic hematuria Category: Medical (2) History of tobacco use: Code(s): Z87.891 - Personal history of nicotine dependence Category: Social Hx (3) Recurrent UTI: Code(s): N39.0 - Urinary tract infection, site not specified Category: Medical (4) Kidney stone: Code(s): N20.0 - Calculus of kidney Category: Medical Plan Urine for culture. Will wait results prior to starting antibiotics as the patient is not having symptoms today. Follow-up in 4 months, monitor kidney stone Orders: Orders AMB Urinalysis Automated Today Z13.9 - Encounter for screening, unspecified Patient Instructions: The patient had an opportunity to ask questions regarding treatment plan. The patient expressed understanding and agreement with the above treatment plan. The patient is aware they should contact our office by phone for worsening of their current condition or the appearance of new symptoms. Compliance is encouraged with any medications and followup testing that is ordered. It is a privilege to be allowed the opportunity to participate in the urologic care of your patient. If you have any questions or concerns regarding treatment for the above conditions please do not hesitate to contact me. The office t elephone contact is [phone]. This note is constructed in part using voice recognition software. While every effort has been made to ensure accuracy clerk specialist errors may have been included. Yours sincerely, Cr Gallardo MD Coding Level of Care Code Est Pt Level 4 (31241) Diagnoses Microscopic hematuria R31.29 History of tobacco use Z87.891 Recurrent UTI N39.0 Kidney stone N20.0
== END 2023-08-21 10:45 | disposition home or self-care (01) ==
PROVIDERS: PCP Internal Medicine; Visit Provider Urology
DX: R31.29 Other microscopic hematuria (principal); Z87.891 Personal history of nicotine dependence; N39.0 Urinary tract infection, site not specified; N20.0 Calculus of kidney; Z13.9 Encounter for screening, unspecified
CPT/HCPCS: 99214

== ENCOUNTER → 2023-08-21 09:58 | Outpatient (BNVA) | payer MEDICARE, OTHER, SELFPAY | PROVIDERS: PCP Internal Medicine; Visit Provider Urology | DX: N39.0 Urinary tract infection, site not specified (principal); R31.29 Other microscopic hematuria; N20.0 Calculus of kidney; Z87.891 Personal history of nicotine dependence | CPT/HCPCS: 81003; 99212 ==

== ENCOUNTER 2023-08-24 09:54 | Outpatient (REF) | payer MEDICARE, OTHER, SELFPAY | END 2023-08-24 09:55 | disposition home or self-care (01) | LOC: HO.LAB 09:54 | PROVIDERS: PCP Internal Medicine; Visit Provider Urology | DX: N39.0 Urinary tract infection, site not specified (principal) | CPT/HCPCS: 87086; 87088; 87186 ==

== ENCOUNTER 2023-10-08 10:45 | Outpatient (REF) | payer MEDICARE, OTHER, SELFPAY ==
[2023-10-08 12:47] LABS: Appearance Urine Turbid; Color Urine Yellow; Glucose Urine UA Negative (Negative); Leukocyte Esterase Urine Large (3+) (Negative); Nitrite Urine Positive (Negative); PH >= 9.0 (5.0-9.0); UMIC TRIGGER UA YES; Urine Blood Small (1+) (Negative); Urine Ketones Negative (Negative); Urine Protein 30 (1+) mg/dL (Neg-Trace)
[2023-10-08 12:53] LABS: Bacteria Urine 4+ (None Seen); Hyaline Casts Urine 0-2 /LPF (0-2); Squamous Epithelial Cell Urine 0-2 /HPF (0-2); WBC Urine >50 /HPF (0-5)
== END 2023-10-08 10:46 | disposition home or self-care (01) ==
LOC: HO.LAB 10:45
PROVIDERS: PCP Internal Medicine; Visit Provider Urology
DX: N39.0 Urinary tract infection, site not specified (principal); B96.1 Klebsiella pneumoniae [K. pneumoniae] as the cause of diseases classified elsewhere
CPT/HCPCS: 81001; 87086; 87088; 87186

== ENCOUNTER 2023-10-30 09:20 | Outpatient (REF) | payer MEDICARE, OTHER, SELFPAY ==
[2023-10-30 11:25] LABS: Alanine Aminotransferase 11 U/L (0-31); Anion Gap 10 (12-20); Aspartate Amino Transferase 14 U/L (5-31); Blood Urea Nitrogen 10 mg/dL (9-16); Calcium 9.7 mg/dL (8.4-10.2); Carbon Dioxide 28 mmol/L (22-29); Chloride 106 mmol/L (96-108); Cholesterol 165 mg/dL (<200); Estimated Glomerular Filt Rate > 60; Glucose Fasting 107 mg/dL (60-99); HDL Cholesterol 61 mg/dL (>40); LDL Cholesterol Calculated 94 mg/dL (<100); Potassium 4.1 mmol/L (3.3-5.1); Sodium 140 mmol/L (135-145); Triglycerides 50 mg/dL (<150)
[2023-10-30 11:33] LABS: Thyroid Stimulating Hormone 0.43 uIU/mL (0.32-4.0); Vitamin D 25-OH Total 44.3 ng/mL (>30)
== END 2023-10-30 09:21 | disposition home or self-care (01) ==
LOC: HO.HMGCLDS 09:20
PROVIDERS: PCP Internal Medicine; Visit Provider Internal Medicine
DX: I10 Essential (primary) hypertension (principal); G25.81 Restless legs syndrome; E78.5 Hyperlipidemia, unspecified; E03.9 Hypothyroidism, unspecified; M85.832 Other specified disorders of bone density and structure, left forearm; M19.90 Unspecified osteoarthritis, unspecified site
CPT/HCPCS: 36415; 80048; 80061; 82306; 84439; 84443; 84450; 84460

== ENCOUNTER 2023-11-11 11:15 | Outpatient (AMB) | payer MEDICARE, OTHER, SELFPAY ==
[2023-11-11 11:45] VITALS: BP 100/70; PULSE 66; O2SAT 97; BMI 21.9
--- NOTE | 2023-11-11 11:45 | A.OFFPC_ITS ---
Vital Signs 11/11/23 11:45 Height 5 ft 2 in Weight 120 lb BMI 21.9 BP 100/70 Blood Pressure Location Lt brachial Position Sitting Pulse 66 Pulse Source Pulse Oximeter Pulse Oximetry (%) 97 Oxygen Delivery Method Room Air Intake Visit Reasons: PE Intake Note: Pt is here today for her PE: last mammogram 02/25/23, bone density scan 06/03/22, colonoscopy 10/15/22 Allergies levofloxacin Adverse Reaction (Severe, Uncoded 11/11/23 12:06) Joint Pain Medication List - Last Reconciled 11/11/23 by Mami Wang MD atenolol 25 mg PO DAILY Ca-D3-mag an-afxt-cmx-kendall-bor 600 mg calcium- 20 mcg-50 mg (Calcium 600-D3 Plus (mag-zinc)) 1 tab PO DAILY cholecalciferol (vitamin D3) 25 mcg PO DAILY gabapentin 600 mg PO BEDTIME levothyroxine 75 mcg PO DAILY lorazepam 0.5 mg PO DAILY PRN omeprazole 20 mg PO Q2D@0630 oxycodone-acetaminophen 5-325 mg 1 tab PO QD-QID PRN rosuvastatin 5 mg PO BEDTIME vitamin E mixed 400 units PO DAILY Tobacco use date assessed: 11/11/23 Fall risk assessment: No Falls in past year Last assessed Fall Risk: 11/11/23 Dental Screening Dental Screen Date: 11/11/23 Did you have a dental visit in the last 12 months?: Yes Did you have a dental problem in the last 6 months where you did not have access to dental care?: Yes Was dental information given to patient?: Patient has dentist HPI PE HPI Details 67-year-old lady here today for physical exam. She is up-to-date with her mammogram last done 02/25/23, had a bone density scan 06/03/22, and is up-to-date with her screening colonoscopy done 10/15/[address] Diane, to be repeated again in 2032. [facility] Medical History (Updated 11/11/23 @ 12:30 by Mami Wang MD) Impaired fasting glucose Osteoarthritis Osteopenia of left forearm Arthritis GERD (gastroesophageal reflux disease) Ovarian cyst Essential hypertension Dyslipidemia Restless leg syndrome Acquired hypothyroidism Fatigue Surgical History Hx of colonoscopy History of back surgery Status post total hip replacement, bilateral Hx laparoscopic cholecystectomy (07/04/96) Social History Household Members: Spouse Housing: Condominium Do you presently have visiting nurse or other home services: No Patient Tobacco Use Status: Former Tobacco user Years Smoked: 25 yrs e-Cigarette/Vaping Use: Never Used service: No Current occupational status: retired Cognitive needs: No Hearing needs: No Vision needs: Yes Questionnaire PHQ-9 Over the last 2 weeks, how often have you been bothered by any of the following problems? 1. Little interest or pleasure in doing things: not at all 2. Feeling down, depressed, or hopeless: not at all 3. Trouble falling or staying asleep, or sleeping too much: not at all 4. Feeling tired or having little energy: not at all 5. Poor appetite or overeating: not at all 6. Feeling bad about yourself - or that you are a failure or have let yourself or your family down: not at all 7. Trouble concentrating on things, such as reading the newspaper or watching television: not at all 8. Moving or speaking so slowly that other people could have noticed. Or the opposite - being so fidgety or restless that you have been moving around a lot more than usual: not at all 9. Thoughts that you would be better off or of hurting yourself in some way: not at all Total score: 0 Depression Screening Interpretation: Negative Depression Screening Done: Yes Source: Developed by Drs. Piyush Santiago, Abimbola Palafox, Seth Omer and colleagues, with an educational mike from [employer]. Thrive Questionnaire Date Thrive assessed: 11/11/23 I am a: Patient What is your living situation today?: I have a steady place to live Within the past 12 months, did the food you bought not last and you didn't have the money to get more?: Never true Within the past 12 months, did you worry whether your food would run out before you got money to buy more?: Never true Do you have trouble paying for medicines?: No Do you have trouble getting transportation to medical appointments?: No Do you have trouble paying your heating and electricity bill?: No Do you have trouble taking care of your child, family member or friend?: No Do you have trouble with day-to-day activities such as bathing, preparing meals, shopping, managing finances, etc.?: No Are you currently unemployed and looking for a job?: No Are you interested in more education?: No Please select the resources that you would like help with: Housing/Snf Currently or been in a relationship where the following occur: No concerns reported THRIVE Score: 0 AUDIT C Alcohol Use Questionnaire (AUDIT-C) 1. How often do you have a drink containing alcohol?: Monthly or less 2. How many drinks containing alcohol do you have on a typical day when you are drinking?: 1 or 2 3. How often do you have six or more drinks on one occasion?: Never Total Score: 1 COURTNEY-7 AMB Questionnaire COURTNEY-7 Date COURTNEY - 7 assessed: 05/29/23 Feeling nervous, anxious, or on edge: 0 = Not at all Not being able to stop or control worryin = Not at all Worrying too much about different things: 0 = Not at all Trouble relaxin = Not at all Being so restless that it is hard to sit still: 0 = Not at all Becoming easily annoyed or irritable: 0 = Not at all Feeling afraid as if something awful might happen: 0 = Not at all Total COURTNEY-7 score (0-4 normal; 5-9 mild; 10-14 moderate; 15-21 severe): 0 Source: Developed by Drs. Piyush Santiago, Abimbola Palafox, Seth Omer and colleagues, with an educational mike from [employer]. Review of Systems Const All systems reviewed & are unremarkable except as noted in HPI and below Reports no additional complaints Eyes Reports no additional complaints ENT Reports no additional complaints Card Reports no additional complaints Resp Reports no additional complaints GI Reports no additional complaints Reports as per HPI Musc Reports no additional complaints Skin/Breast Reports system reviewed and no additional complaints, except as documented Neuro Reports no additional complaints Psych Reports no additional complaints Endo Reports no additional complaints Thierno/Lymph Reports no additional complaints Aller/Immun Reports no additional complaints Physical exam (Primary Care) Vital Signs: Last Vital Signs Pulse 66 11/11/23 11:45 BP 100/70 11/11/23 11:45 Pulse Ox 97 07/17/24 11:45 Oxygen Delivery Method Room Air 11/11/23 11:45 BMI result Body Mass Index 21.9 Tobacco/Smoking Status: Tobacco use Status Tobacco use date assessed 11/11/23 11/11/23 11:58 Patient Tobacco Use Status Former Tobacco user 11/11/23 11:47 e-Cigarette/Vaping Use Never Used 11/11/23 11:47 PHQ-9: PHQ-9 Score PHQ-9: Total score 0 11/11/23 12:07 Depression Screening Interpretation: Negative Thrive Assessment: Date of Thrive Assessment Date Thrive assessed 11/11/23 11/11/23 11:47 Currently or been in a relationship where the following occur: No concerns reported Const General: cooperative, comfortable and no acute distress Orientation/consciousness: patient oriented x3 Limitations: no limitations HENMT Ears: external ears normal and EAC's normal General nose exam: Normal external nose present, Normal nasal mucous membranes and turbinates present and No nasal discharge present Mouth: oropharynx normal and moist mucous membranes Eyes General: appearance normal, both eyes and all related structures Neck Neck: Yes full ROM, Yes no lymphadenopathy and Yes supple Chest Breast/axilla palpation: normal palpation of the breasts Resp Effort & Inspection: normal respiratory effort and able to speak in complete sentences Auscultation: clear to auscultation bilaterally Cardio Rate: regular rate Rhythm: regular rhythm Heart sounds: S1 normal heart sound present and S2 normal heart sound present GI Inspection: Yes normal to inspection Palpation (GI): Soft to palpation, nontender and no masses Auscultation: normal bowel sounds General: Yes no CVA tenderness Back/Spine/Pelvis Back: no CVA tenderness and No back tenderness Skin General skin exam: no rashes or lesions noted Neuro General: patient oriented x3, gait normal, tone normal, moves all extremities, Normal light touch and pain sensation and no focal motor deficits Cognition (Neuro): normal cognition Gait exam (Neuro): Normal gait present Motor exam (neuro): 5/5 motor strength present throughout Extrem General: Yes full ROM, Yes no joint enlargement, Yes no pedal edema, Yes no calf tenderness and Yes normal gait Psych Appearance: grossly normal and well kempt Mental Status: mental status grossly normal Speech and movement: Normal speech and movement present Affect: normal affect Attitude: cooperative Thought process: Normal thought process present Results Reviewed Results Reviewed: Name: Fide Edward Age/Sex: 67/F : 1955 Unit#: [id number] Attend Dr: Mami Wang MD Re10/30/23 Status: DEP [facility] SPEC : [id number] SAMMIE: 10/30/23 STATUS: COMP REQ : [id number] RECD: 10/30/23-[address]: Mami Wang MD COMP: 10/30/23 ENTERED: 10/30/[address]: ORDERED: Met Prof Fast, AST, ALT, Lipid Panel, Vitamin D 25-OH, Free T4, TSH Test Result Flag Reference Sodium 140 135-145 mmol/L Potassium 4.1 3.3-5.1 mmol/L CL 106 96-108 mmol/L CO2 28 22-29 mmol/L Gap 10 L 12-20 BUN 10 9-16 mg/dL Creat 0.65 0.5-1.4 mg/dL EGFR > 60 NOTE: For -Malagasy individuals, multiply the result by 1.210. Chronic Kidney Disease: Estimated GFR < 60 mL/min/1.73m2 Severe Kidney Disease: Estimated GFR < 15 mL/min/1.73m2 FBS 107 H 60-99 mg/dL A fasting glucose from 100-125 mg/dl is considered impaired (pre-diabetes). CA 9.7 8.4-10.2 mg/dL AST (GOT) 14 5-31 U/L ALT (GPT) 11 0-31 U/L Triglyceride 50 <150 mg/dL Desirable Triglyceride: less than 150 mg/dL Borderline High Triglyceride 150-199 mg/dL High Triglyceride: 200-499 mg/dL Very High Triglyceride: greater than or equal to 5OO mg/dL Cholesterol 165 <200 mg/dL Desirable Cholesterol: less than 200 mg/dL Borderline High Cholesterol: 200-239 mg/dL High Cholesterol: greater than 239 mg/dL LDL Calculated 94 <100 mg/dL Desirable LDL: less than 100 mg/dL Near Optimal/Above Optimal LDL: 110-129 mg/dL Borderline High LDL: 130-159 mg/dL High LDL: 160-189 mg/dL Very High LDL: greater than or equal to 190 mg/dL HDL 61 >40 mg/dL Desirable HDL: greater than 40 mg/dL Note: This HDL assay may give artificially low results in patients with liver disease. Vit D 25-OH Tot 44.3 >30 ng/mL Health Based Reference Values* < 20 ng/mL Deficient 20-30 ng/mL Insufficient > 30 ng/mL Sufficient *Alycia MONTES. N Engl J Med. 2007;[id number]:266-280 Care must be taken in interpreting Vitamin D results from different laboratories and methodologies. Published data demonstrated that results from patients undergoing hemodialysis may show a negative bias when tested with various automated 25-OH vitamin D assays when compared to LC-MS/MS. When testing samples from patients whose predominant form of Vitamin D is Vitamin D2, such as patients receiving Vitamin D2 supplementation, results that are subtherapeutic should be confirmed with another method such as LC-MS/MS. Free T4 1.20 0.71-1.85 ng/dL TSH 3rd Gen. 0.43 0.32-4.0 uIU/mL TSH 3rd Generation ([facility]) Assessment and Plan Assessment & Plan (1) Annual visit for general adult medical examination with abnormal findings: Code(s): Z00.01 - Encounter for general adult medical examination with abnormal findings Plan: Reviewed recent fasting lab results with patient. Continue with regular dental visit every 6 months and regular eye exams, at least every 2 years. Take adequate calcium in diet and vitamin-D 3 at 2000 IU per cap once a day, in addition to weight-bearing exercises to help maintain good muscle tone and weight control. Instructed to do self-breast exam, and continue yearly mammogram, currently up-to-date, had a bone density scan 06/03/22, and is up-to-date with her screening colonoscopy done 10/15/[address] Diane, to be repeated again in 2032. Up-to-date with her COVID vaccination, gets yearly flu shot, up-to-date with her pneumonia and Tdap vaccination, only saw 1 shingles vaccine on record, reminded patient to get her 2nd dose of Shingrix (2) Acquired hypothyroidism: Code(s): E03.9 - Hypothyroidism, unspecified Plan: Recent thyroid levels are within normal limits, continue levothyroxine 75 mcg daily (3) Restless leg syndrome: Code(s): G25.81 - Restless legs syndrome Plan: Refill sent for gabapentin 600 mg 1 tablet at bedtime (4) Dyslipidemia: Code(s): E78.5 - Hyperlipidemia, unspecified Plan: Latest fasting lipid results were within normal limits. Continue rosuvastatin 5 mg at bedtime (5) Essential hypertension: Code(s): I10 - Essential (primary) hypertension Plan: Blood pressure at goal of less than 130/80. Continue with Atenolol 25 mg daily . Reinforced importance of following a low sodium diet, getting regular exercise, and lowering stress levels. (6) Encounter for counseling regarding advance directives: Code(s): Z71.89 - Other specified counseling Plan: Initiated the conversation about Advanced Directives. Advanced Directives help patients prepare for current and future decisions about their medical treatment and place of care. Discussed with patient that it is a process where a patients current condition and prognosis are reviewed, their wishes for information regarding their illness are elicited, and likely medical dilemmas are presented and options discussed. Healthcare proxy form already done and MOLST form completed today. These forms can be amended as needed, reviewed yearly and make changes as needed Orders: Orders Free T4 (Free Thyroxine) 6 Months E03.9 - Hypothyroidism, unspecified, E78.5 - Hyperlipidemia, unspecified, G25.81 - Restless legs syndrome, I10 - Essential (primary) hypertension, Z00.01 - Encounter for general adult medical examination with abnormal findings, Z71.89 - Other specified counseling Lipid Panel 6 Months E03.9 - Hypothyroidism, unspecified, E78.5 - Hyperlipidemia, unspecified, G25.81 - Restless legs syndrome, I10 - Essential (primary) hypertension, Z00.01 - Encounter for general adult medical examination with abnormal findings, Z71.89 - Other specified counseling Hemoglobin A1c 6 Months E03.9 - Hypothyroidism, unspecified, E78.5 - Hyperlipidemia, unspecified, G25.81 - Restless legs syndrome, I10 - Essential (primary) hypertension, R73.01 - Impaired fasting glucose, Z00.01 - Encounter for general adult medical examination with abnormal findings, Z71.89 - Other specified counseling Alanine Aminotransferase 6 Months E03.9 - Hypothyroidism, unspecified, E78.5 - Hyperlipidemia, unspecified, G25.81 - Restless legs syndrome, I10 - Essential (primary) hypertension, Z00.01 - Encounter for general adult medical examination with abnormal findings, Z71.89 - Other specified counseling Thyroid Stimulating Hormone 6 Months E03.9 - Hypothyroidism, unspecified, E78.5 - Hyperlipidemia, unspecified, G25.81 - Restless legs syndrome, I10 - Essential (primary) hypertension, Z00.01 - Encounter for general adult medical examination with abnormal findings, Z71.89 - Other specified counseling Aspartate Amino Transferase 6 Months E03.9 - Hypothyroidism, unspecified, E78.5 - Hyperlipidemia, unspecified, G25.81 - Restless legs syndrome, I10 - Essential (primary) hypertension, Z00.01 - Encounter for general adult medical examination with abnormal findings, Z71.89 - Other specified counseling Basic Metabolic Panel Fasting 6 Months E03.9 - Hypothyroidism, unspecified, E78.5 - Hyperlipidemia, unspecified, G25.81 - Restless legs syndrome, I10 - Essential (primary) hypertension, Z00.01 - Encounter for general adult medical examination with abnormal findings, Z71.89 - Other specified counseling Medications: Refilled gabapentin 600 mg PO BEDTIME 30 tabs 5RF atenolol 25 mg PO DAILY 90 tabs 3RF levothyroxine 75 mcg PO DAILY 90 tabs 1RF rosuvastatin 5 mg PO BEDTIME 90 tabs 3RF Coding Level of Care Code Est Pt Prev Care >65y(26627) Diagnoses Annual visit for general adult medical examination with abnormal findings Z 00.01 Acquired hypothyroidism E03.9 Restless leg syndrome G25.81 Dyslipidemia E78.5 Essential hypertension I10 Encounter for counseling regarding advance directives Z71.89
== END 2023-11-11 16:21 | disposition home or self-care (01) ==
PROVIDERS: PCP Internal Medicine; Visit Provider Internal Medicine
DX: Z00.00 Encounter for general adult medical examination without abnormal findings (principal); E03.9 Hypothyroidism, unspecified; G25.81 Restless legs syndrome; E78.5 Hyperlipidemia, unspecified; I10 Essential (primary) hypertension; Z71.89 Other specified counseling
CPT/HCPCS: 99397

== ENCOUNTER 2023-12-24 11:38 | Outpatient (AMB) | payer MEDICARE, OTHER, SELFPAY ==
--- NOTE | 2023-12-24 11:46 | MHC.OFFVIS ---
Intake Visit Reasons: 4m/recurrent UTIs Intake Note: Patient is present for 4M/RECURRENT UTI Urology Medication:NONE Antibiotic Allergy:LEVOFLOXACIN Blood Thinner:NONE TODAY'S PVR:0ML'S Director Biologics Required: No Allergies levofloxacin Adverse Reaction (Severe, Uncoded 12/24/23 11:48) Joint Pain HPI Comments Details: 12/24/23--Fide is a 68-year-old female who presents to the office for a follow-up. She was initially evaluated on 09/01/22 as a new patient for microscopic hematuria. The patient had a history of diverticular abscess in January 2022 which was drained by interventional radiology at that time. The patient is former tobacco user.? CTAP with contrast results reviewed?02/20/22?Kidneys: WNL with 1.7 cm cyst in the right kidney. Evaluation of bladder with cystoscopy in the operating room on 09/30/22. Findings at that time noted bladder wall thickening. She has continued to have recurrent UTI episodes. She has intermittent constipation and diarrhea. Discussed importance Hygiene which she has been diligent with. Continue low dose antibiotic suppessive therapy. She has right renal stone will continue to monitor. Renal US on FU. Review of chart: 08/21/2023---Fide is here for follow-up she has had symptomatic recurrent UTIs. On review of her chart she had a culture positive UTI in February and April. She states that since the UTI in April she has not had UTI symptoms of dysuria or bladder pressure. She did however have some upper respiratory tract symptoms and was on prednisone and amoxicillin in June. She is here in follow-up and had a renal ultrasound done. Urinalysis nitrite positive, 3+ leukocytes. I have reviewed renal ultrasound performed on 08/07/2023-- 5 mm nonobstructing right renal calculus is seen. (this is a new finding not noted on prior CT scan 01/2022) No left renal calculus is seen. No hydronephrosis is noted bilaterally. debris within the urinary bladder.. 11/10/22-- Fide is a 66-year-old female who presents to the office for a follow-up. She was initially evaluated on 09/01/22 as a new patient for microscopic hematuria. The patient had a history of diverticular abscess in January 2022 which was drained by interventional radiology at that time. The patient is former tobacco user.? CTAP with contrast results reviewed?02/20/22?Kidneys: WNL with 1.7 cm cyst in the right kidney. She is status post cystoscopy in the operating room on 09/30/22. Findings at that time noted bladder wall thickening. No suspicious bladder lesion visualized. She also had a urine cytology that was sent on 09/02/22. (Negative for malignant cells) She reports mild cloudy urine. She denies any discomfort while urinating. Evaluation today ??UA ? 3+ leuk, trace blood. Bladder scan PVR 355 mL. The patient voided again, she missed the collection container but reported that she voided a large amout of urine I have advised Timed voiding every 3 hrs [facility] Medical History Impaired fasting glucose Osteoarthritis Osteopenia of left forearm Arthritis GERD (gastroesophageal reflux disease) Ovarian cyst Essential hypertension Dyslipidemia Restless leg syndrome Acquired hypothyroidism Fatigue Surgical History Hx of colonoscopy History of back surgery Status post total hip replacement, bilateral Hx laparoscopic cholecystectomy (07/04/96) Social History Household Members: Spouse Housing: Condominium Do you presently have visiting nurse or other home services: No Patient Tobacco Use Status: Former Tobacco user Years Smoked: 25 yrs e-Cigarette/Vaping Use: Never Used service: No Current occupational status: retired Cognitive needs: No Hearing needs: No Vision needs: Yes Review of Systems Const All systems reviewed & are unremarkable except as noted in HPI and below Reports no additional complaints Eyes Reports no additional complaints ENT Reports no additional complaints Card Reports no additional complaints Resp Reports no additional complaints GI Reports no additional complaints Reports as per HPI Musc Reports no additional complaints Skin/Breast Reports system reviewed and no additional complaints, except as documented Neuro Reports no additional complaints Psych Reports no additional complaints Endo Reports no additional complaints Thierno/Lymph Reports no additional complaints Aller/Immun Reports no additional complaints Office Procedures Post Void Residual Post Residual Void Post Void Residual (PVR): 0 [id number]-[id number] Void Residual by ultrasound Results AMB Urinalysis, Automated UA Leukoctes 500 Mary/uL Last Edit by SHIRLEY Dowling on 12/24/23 12:13 UA Nitrite Negative Last Edit by Guerline Menchaca [facility] on 12/24/23 12:13 UA Urobilinogen 0.2 mg/dL Last Edit by Guerline Menchaca [facility] on 12/24/23 12:13 UA Protein 0 mg/dL Last Edit by Guerline Menchaca [facility] on 12/24/23 12:13 UA pH 6.0 Last Edit by Guerline Menchaca [facility] on 12/24/23 12:13 UA Blood 0 Skinny/uL Last Edit by Guerline Menchaca [facility] on 12/24/23 12:13 UA Specific [place] 1.015 Last Edit by Guerline Menchaca [facility] on 12/24/23 12:13 UA Ketone Negative Last Edit by Guerline Menchaca [facility] on 12/24/23 12:13 UA Bilirubin 0 mg/dL Last Edit by Guerline Menchaca [facility] on 12/24/23 12:13 UA Glucose 0 mg/dL Last Edit by Guerline Menchaca [facility] on 12/24/23 12:13 Results Reviewed Results Reviewed: Laboratory Last Values Urine pH (Auto) 6.0 12/24/23 12:12 Specific [place] (Auto) 1.015 12/24/23 12:12 Urine Protein (Auto) 0 mg/dL 12/24/23 12:12 Glucose (UA)(Auto) 0 mg/dL 12/24/23 12:12 Urine Ketones (Auto) Negative 12/24/23 12:12 Urine Blood (Auto) 0 Skinny/uL 12/24/23 12:12 Urine Nitrite (Auto) Negative 12/24/23 12:12 Urine Bilirubin (Auto) 0 mg/dL 12/24/23 12:12 Urine Urobilinogen (Auto) 0.2 mg/dL 12/24/23 12:12 Leukocyte Esterase (Auto) 500 Mary/uL 12/24/23 12:12 Collected: 10/08/23-1100 Status: COMP Req#: [id number] Received: 10/08/23-1236 Source: [facility] Sp Desc: Clean Cat Subm Dr: Cr Gallardo MD Ordered: Urine Culture Procedure Result Verified Urine Culture Final 06 Organism 1 Klebsiella pneumoniae Quant > 100,000 cfu/mL Kleb pneum M.I.C. RX --------- --- Ampicillin >=32 R Ceftriaxone <=0.25 S Gentamicin <=1 S Levofloxacin <=0.12 S Nitrofurantoin 64 I Trimethoprim/Sulfamethoxazole <=20 S Date of Service: 08/07/23 EXAMINATION: US RETROPERITONEAL COMPLETE (RENAL) CLINICAL INFORMATION: Urinary tract infection, site not specified. COMPARISON: CT abdomen and pelvis 02/20/2022. TECHNIQUE: Real-time imaging of the kidneys and bladder. FINDINGS: RIGHT KIDNEY: 9.7 x 5.0 x 5.8 cm (SAG x AP x TRV). The kidney is normal in size, contour, and echogenicity. Renal cortical thickness is normal. No hydronephrosis. At the lower pole, a 5 mm nonobstructing calculus is seen. At the upper pole, a 7 mm benign, simple cyst is seen, for which no imaging follow-up is recommended. LEFT KIDNEY: 11.5 x 5.5 x 4.7 cm (SAG x AP x TRV). The kidney is normal in size, contour, and echogenicity. Renal cortical thickness is normal. No calculi or focal parenchymal lesions. No hydronephrosis. BLADDER: Well distended and normal. Bilateral ureteral jets are not demonstrated. Prevoid bladder volume is 343 mL. Postvoid bladder volume is 220 mL. Mild dependent debris is noted within the urinary bladder. IMPRESSION: 1. A 5 mm nonobstructing right renal calculus is seen. No left renal calculus is seen. No hydronephrosis is noted bilaterally. 2. There is an increased postvoid residual volume. 3. There is debris within the urinary bladder, for which correlation with the patient's most recent urinalysis is recommended. Collected: 05/15/23 Status: COMP Req#: [id number] Received: 05/15/23 Source: [facility] Sp Desc: Clean Cat Subm Dr: Cr Gallardo MD Ordered: Urine Culture Procedure Result Verified Urine Culture Final 05/17/23 Organism 1 Pseudomonas aeruginosa Quant 10,000 to 50,000 cfu/mL P aerugino M.I.C. RX --------- --- Cefepime 2 S Gentamicin 4 S Levofloxacin <=0.12 S Meropenem <=0.25 S Piperacillin/Tazobactam 8 S Collected: 03/24/23 Status: CHAVA Santos#: [id number] Received: 03/24/23 Source: [facility] Sp Desc: Clean Cat Subm Dr: Cr Gallardo MD Ordered: Urine Culture Procedure Result Verified Urine Culture Final 03/26/23 Organism 1 Pseudomonas aeruginosa Quant > 100,000 cfu/mL P aerugino M.I.C. RX --------- --- Cefepime 2 S Gentamicin <=1 S Levofloxacin <=0.12 S Meropenem <=0.25 S Piperacillin/Tazobactam <=4 S Assessment & Plan Assessment & Plan (1) Kidney stone: Code(s): N20.0 - Calculus of kidney Category: Medical (2) Recurrent UTI: Code(s): N39.0 - Urinary tract infection, site not specified Category: Medical Plan Continue low dose antibiotic suppessive therapy. She has right renal stone will continue to monitor. Renal US on FU. Orders: Orders AMB Urinalysis Automated 12/24/23 Z13.9 - Encounter for screening, unspecified Urine Culture 12/25/23 N39.0 - Urinary tract infection, site not specified Medications: New cephalexin 250 mg PO DAILY 30 caps 7RF Patient Instructions: The patient had an opportunity to ask questions regarding treatment plan. The patient expressed understanding and agreement with the above treatment plan. The patient is aware they should contact our office by phone for worsening of their current condition or the appearance of new symptoms. Compliance is encouraged with any medications and followup testing that is ordered. It is a privilege to be allowed the opportunity to participate in the urologic care of your patient. If you have any questions or concerns regarding treatment for the above conditions please do not hesitate to contact me. The office telephone contact is [phone]. This note is constructed in part using voice recognition software. While every effort has been made to ensure accuracy correctional case records supervisor errors may have been included. Yours sincerely, Cr Gallardo MD Coding Level of Care Code Est Pt Level 4 (96664) Diagnoses Kidney stone N20.0 Recurrent UTI N39.0 CPT Codes Post Residual Void - PVR CPT Code: 74740-Gahj Void Residual by ultrasound ([id number])
== END 2023-12-24 12:38 | disposition home or self-care (01) ==
PROVIDERS: PCP Internal Medicine; Visit Provider Urology
DX: N20.0 Calculus of kidney (principal); N39.0 Urinary tract infection, site not specified
CPT/HCPCS: 99214

== ENCOUNTER → 2023-12-24 11:38 | Outpatient (BNVA) | payer MEDICARE, OTHER, SELFPAY | PROVIDERS: PCP Internal Medicine; Visit Provider Urology | DX: N20.0 Calculus of kidney (principal); N39.0 Urinary tract infection, site not specified | CPT/HCPCS: 51798; 81003; 99212 ==

== ENCOUNTER 2023-12-25 15:35 | Outpatient (REF) | payer MEDICARE, OTHER, SELFPAY | END 2023-12-25 15:36 | disposition home or self-care (01) | LOC: HO.LAB 15:35 | PROVIDERS: Visit Provider Urology | DX: N39.0 Urinary tract infection, site not specified (principal) | CPT/HCPCS: 87086 ==

== ENCOUNTER 2024-03-12 10:08 | Outpatient (REF) | payer MEDICARE, OTHER, SELFPAY ==
--- NOTE | ~2024-03-12 | MM_ITS ---
EXAMINATION: MM SCREENING DIGITAL BREAST TOMOSYNTHESIS, BILATERAL CLINICAL INFORMATION: Screening. Asymptomatic. COMPARISON: Mammography: Comparison is made with available priors TECHNIQUE: Digital breast mammography with tomosynthesis is performed in both the craniocaudal and mediolateral oblique views along with computer-aided detection (CAD). FINDINGS: There are scattered areas of fibroglandular density (ACR BI-RADS breast composition Category b). There are no significant masses, abnormal calcifications, or other abnormalities. MM/MM tomosynthesis screening BI IMPRESSION: No mammographic evidence of malignancy. ASSESSMENT: BI-RADS BI-RADS 1 - Negative RECOMMENDATION: Routine annual mammography screening. 1 year F/U This examination should not preclude the clinical evaluation of a suspicious palpable abnormality. This patient's information was entered into a reminder system with a target due date for their next mammogram. Electronically signed by: Lilian King DO 03/22/2024 11:06 AM DEREJE
== END 2024-03-12 10:09 | disposition home or self-care (01) ==
LOC: HO.MAMMO 10:08
PROVIDERS: PCP Internal Medicine; Visit Provider Internal Medicine
DX: Z12.31 Encounter for screening mammogram for malignant neoplasm of breast (principal)
CPT/HCPCS: 77063; 77067

== ENCOUNTER → 2024-03-12 10:15 | Outpatient (BNV) | payer MEDICARE, OTHER, SELFPAY | PROVIDERS: PCP Internal Medicine; Visit Provider Internal Medicine | DX: Z12.31 Encounter for screening mammogram for malignant neoplasm of breast (principal) | CPT/HCPCS: 77063; 77067 ==

== ENCOUNTER 2024-04-01 11:22 | Outpatient (REF) | payer MEDICARE, OTHER, SELFPAY | END 2024-04-01 11:23 | disposition home or self-care (01) | LOC: HO.HMGCX 11:22 | PROVIDERS: PCP Internal Medicine; Visit Provider Urology | DX: N20.0 Calculus of kidney (principal); N39.0 Urinary tract infection, site not specified | CPT/HCPCS: 76775 ==

== ENCOUNTER 2024-04-15 13:44 | Outpatient (AMB) | payer MEDICARE, OTHER, SELFPAY ==
--- NOTE | 2024-04-14 23:47 | MHC.OFFVIS ---
Intake Visit Reasons: 4m/US/recurrent UTI/kidney stone Intake Note: Patient is Present for Follow Up UTI/PVR Urology Medication: Cephalexin Antibiotic Allergies:Levofloxacin Blood Thinners: None Last Urine Culture: 12/18/23- No Growth Last PVR:0ML Todays PVR: 12ml Patient states that she is doing good on Daily Cephalexin. Reports no pain or UTI symptoms since she last was in office. Hardware Installer Required: No Accompanied by: Self / Same As Patient Allergies levofloxacin Adverse Reaction (Severe, Uncoded 04/15/24 14:15) Joint Pain HPI Comments Details: 04/15/2024--here for follow-up to review renal ultrasound. Patient is on low-dose antibiotic suppressive therapy Keflex 250 mg daily for recurrent UTIs. Renal ultrasound 04/01/2024--official reading pending. Other results IR Last urine culture 12/25/2023 no growth Fide is a 68-year-old female who presents to the office for a follow-up. She was initially evaluated on 09/01/22 as a new patient for microscopic hematuria. The patient had a history of diverticular abscess in January 2022 which was drained by interventional radiology at that time. The patient is former tobacco user.? CTAP with contrast results reviewed?02/20/22?Kidneys: WNL with 1.7 cm cyst in the right kidney. Evaluation of bladder with cystoscopy in the operating room on 09/30/22. Findings at that time noted bladder wall thickening. She has continued to have recurrent UTI episodes. She has intermittent constipation and diarrhea. 12/24/23--Fide is a 68-year-old female who presents to the office for a follow-up. She was initially evaluated on 09/01/22 as a new patient for microscopic hematuria. The patient had a history of diverticular abscess in January 2022 which was drained by interventional radiology at that time. The patient is former tobacco user.? CTAP with contrast results reviewed?02/20/22?Kidneys: WNL with 1.7 cm cyst in the right kidney. Evaluation of bladder with cystoscopy in the operating room on 09/30/22. Findings at that time noted bladder wall thickening. She has continued to have recurrent UTI episodes. She has intermittent constipation and diarrhea. Discussed importance Hygiene which she has been diligent with. Continue low dose antibiotic suppessive therapy. She has right renal stone will continue to monitor. Renal US on FU. Review of chart: 08/21/2023---Fide is here for follow-up she has had symptomatic recurrent UTIs. On review of her chart she had a culture positive UTI in February and April. She states that since the UTI in April she has not had UTI symptoms of dysuria or bladder pressure. She did however have some upper respiratory tract symptoms and was on prednisone and amoxicillin in June. She is here in follow-up and had a renal ultrasound done. Urinalysis nitrite positive, 3+ leukocytes. I have reviewed renal ultrasound performed on 08/07/2023-- 5 mm nonobstructing right renal calculus is seen. (this is a new finding not noted on prior CT scan 01/2022) No left renal calculus is seen. No hydronephrosis is noted bilaterally. debris within the urinary bladder.. 11/10/22-- Fide is a 66-year-old female who presents to the office for a follow-up. She was initially evaluated on 09/01/22 as a new patient for microscopic hematuria. The patient had a history of diverticular abscess in January 2022 which was drained by interventional radiology at that time. The patient is former tobacco user.? CTAP with contrast results reviewed?02/20/22?Kidneys: WNL with 1.7 cm cyst in the right kidney. She is status post cystoscopy in the operating room on 09/30/22. Findings at that time noted bladder wall thickening. No suspicious bladder lesion visualized. She also had a urine cytology that was sent on 09/02/22. (Negative for malignant cells) She reports mild cloudy urine. She denies any discomfort while urinating. Evaluation today ??UA ? 3+ leuk, trace blood. Bladder scan PVR 355 mL. The patient voided again, she missed the collection container but reported that she voided a large amout of urine I have advised Timed voiding every 3 hrs [facility] Medical History Impaired fasting glucose Osteoarthritis Osteopenia of left forearm Arthritis GERD (gastroesophageal reflux disease) Ovarian cyst Essential hypertension Dyslipidemia Restless leg syndrome Acquired hypothyroidism Fatigue Surgical History Hx of colonoscopy History of back surgery Status post total hip replacement, bilateral Hx laparoscopic cholecystectomy (07/04/96) Social History Household Members: Spouse Housing: Condominium Do you presently have visiting nurse or other home services: No Patient Tobacco Use Status: Former Tobacco user Years Smoked: 25 yrs e-Cigarette/Vaping Use: Never Used service: No Current occupational status: retired Cognitive needs: No Hearing needs: No Vision needs: Yes Office Procedures Post Void Residual Post Residual Void Post Void Residual (PVR): [id number] Void Residual by ultrasound Results AMB Urinalysis, Automated UA Leukoctes 125 Mary/uL Last Edit by PEPITO Claire on 04/15/24 14:29 UA Nitrite Negative Last Edit by PEPITO Claire on 04/15/24 14:29 UA Urobilinogen 0.2 mg/dL Last Edit by PEPITO Claire on 04/15/24 14:29 UA Protein 15 mg/dL Last Edit by PEPITO Claire on 04/15/24 14:29 UA pH 6.0 Last Edit by PEPITO Claire on 04/15/24 14:29 UA Blood 0 Skinny/uL Last Edit by PEPITO Claire on 04/15/24 14:29 UA Specific [place] 1.015 Last Edit by PEPITO Claire on 04/15/24 14:29 UA Ketone Negative Last Edit by PEPITO Claire on 04/15/24 14:29 UA Bilirubin 0 mg/dL Last Edit by PEPITO Claire on 04/15/24 14:29 UA Glucose 0 mg/dL Last Edit by PEPITO Claire on 04/15/24 14:29 Results Reviewed Results Reviewed: Laboratory Last Values Urine pH (Auto) 6.0 04/15/24 14:20 Specific [place] (Auto) 1.015 04/15/24 14:20 Urine Protein (Auto) 15 mg/dL 04/15/24 14:20 Glucose (UA)(Auto) 0 mg/dL 04/15/24 14:20 Urine Ketones (Auto) Negative 04/15/24 14:20 Urine Blood (Auto) 0 Skinny/uL 04/15/24 14:20 Urine Nitrite (Auto) Negative 04/15/24 14:20 Urine Bilirubin (Auto) 0 mg/dL 04/15/24 14:20 Urine Urobilinogen (Auto) 0.2 mg/dL 04/15/24 14:20 Leukocyte Esterase (Auto) 125 Mary/uL 04/15/24 14:20 Collected: 10/08/23-1100 Status: COMP Req#: [id number] Received: 10/08/23-1236 Source: [facility] Sp Desc: Clean Cat Subm Dr: Cr Gallardo MD Ordered: Urine Culture Procedure Result Verified Urine Culture Final 10/10/23-735 Organism 1 Klebsiella pneumoniae Quant > 100,000 cfu/mL Kleb pneum M.I.C. RX --------- --- Ampicillin >=32 R Ceftriaxone <=0.25 S Gentamicin <=1 S Levofloxacin <=0.12 S Nitrofurantoin 64 I Trimethoprim/Sulfamethoxazole <=20 S Date of Service: 08/07/23 EXAMINATION: US RETROPERITONEAL COMPLETE (RENAL) CLINICAL INFORMATION: Urinary tract infection, site not specified. COMPARISON: CT abdomen and pelvis 02/20/2022. TECHNIQUE: Real-time imaging of the kidneys and bladder. FINDINGS: RIGHT KIDNEY: 9.7 x 5.0 x 5.8 cm (SAG x AP x TRV). The kidney is normal in size, contour, and echogenicity. Renal cortical thickness is normal. No hydronephrosis. At the lower pole, a 5 mm nonobstructing calculus is seen. At the upper pole, a 7 mm benign, simple cyst is seen, for which no imaging follow-up is recommended. LEFT KIDNEY: 11.5 x 5.5 x 4.7 cm (SAG x AP x TRV). The kidney is normal in size, contour, and echogenicity. Renal cortical thickness is normal. No calculi or focal parenchymal lesions. No hydronephrosis. BLADDER: Well distended and normal. Bilateral ureteral jets are not demonstrated. Prevoid bladder volume is 343 mL. Postvoid bladder volume is 220 mL. Mild dependent debris is noted within the urinary bladder. IMPRESSION: 1. A 5 mm nonobstructing right renal calculus is seen. No left renal calculus is seen. No hydronephrosis is noted bilaterally. 2. There is an increased postvoid residual volume. 3. There is debris within the urinary bladder, for which correlation with the patient's most recent urinalysis is recommended. Collected: 05/15/231111 Status: COMP Req#: [id number] Received: 05/15/231202 Source: [facility] Sp Desc: Clean Cat Subm Dr: Cr Gallardo MD Ordered: Urine Culture Procedure Result Verified Urine Culture Final 05/17/2331 Organism 1 Pseudomonas aeruginosa Quant 10,000 to 50,000 cfu/mL P aerugino M.I.C. RX --------- --- Cefepime 2 S Gentamicin 4 S Levofloxacin <=0.12 S Meropenem <=0.25 S Piperacillin/Tazobactam 8 S Collected: 03/24/231013 Status: COMP Req#: [id number] Received: 03/24/23 Source: [facility] Sp Desc: Clean Cat Subm Dr: Cr Gallardo MD Ordered: Urine Culture Procedure Result Verified Urine Culture Final 03/26/233 Organism 1 Pseudomonas aeruginosa Quant > 100,000 cfu/mL P aerugino M.I.C. RX --------- --- Cefepime 2 S Gentamicin <=1 S Levofloxacin <=0.12 S Meropenem <=0.25 S Piperacillin/Tazobactam <=4 S Assessment & Plan Assessment & Plan Orders: Orders AMB Post Void Residual by ultrasound Today R33.9 - Retention of urine, unspecified AMB Urinalysis Automated Today Z13.9 - Encounter for screening, unspecified Coding CPT Codes Post Residual Void - PVR CPT Code: 37490-Slql Void Residual by ultrasound ([id number])
== END 2024-04-15 14:56 | disposition home or self-care (01) ==
PROVIDERS: PCP Internal Medicine; Visit Provider Urology
DX: Z13.9 Encounter for screening, unspecified (principal)

== ENCOUNTER → 2024-04-15 13:44 | Outpatient (BNVA) | payer MEDICARE, OTHER, SELFPAY | PROVIDERS: PCP Internal Medicine; Visit Provider Urology | DX: N39.0 Urinary tract infection, site not specified (principal); R31.29 Other microscopic hematuria; N20.0 Calculus of kidney; Z87.891 Personal history of nicotine dependence | CPT/HCPCS: 51798; 81003; 99212 ==

== ENCOUNTER 2024-05-05 09:35 | Outpatient (REF) | payer MEDICARE, OTHER, SELFPAY ==
[2024-05-05 13:42] LABS: Estimated Average Glucose 105 mg/dL; Hemoglobin A1C 110.9019 umol/L; Hemoglobin A1c % 5.3 % (<6.0); Total Hemoglobin (HGBA1C) 3191.0085 umol/L
[2024-05-05 13:58] LABS: Alanine Aminotransferase 15 U/L (0-31); Anion Gap 13 (12-20); Aspartate Amino Transferase 18 U/L (5-31); Blood Urea Nitrogen 11 mg/dL (9-16); Calcium 10.6 mg/dL (8.4-10.2); Carbon Dioxide 29 mmol/L (22-29); Chloride 104 mmol/L (96-108); Cholesterol 153 mg/dL (<200); Estimated Glomerular Filt Rate > 60; Glucose Fasting 97 mg/dL (60-99); HDL Cholesterol 53 mg/dL (>40); LDL Cholesterol Calculated 92 mg/dL (<100); Potassium 4.1 mmol/L (3.3-5.1); Sodium 142 mmol/L (135-145); Triglycerides 42 mg/dL (<150)
[2024-05-05 14:04] LABS: Free T4 (Free Thyroxine) 1.54 ng/dL (0.71-1.85)
== END 2024-05-05 09:36 | disposition home or self-care (01) ==
LOC: HO.HMGCLDS 09:35
PROVIDERS: PCP Internal Medicine; Visit Provider Internal Medicine
DX: Z00.01 Encounter for general adult medical examination with abnormal findings (principal); I10 Essential (primary) hypertension; E78.5 Hyperlipidemia, unspecified; G25.81 Restless legs syndrome; E03.9 Hypothyroidism, unspecified; Z71.89 Other specified counseling; R73.01 Impaired fasting glucose
CPT/HCPCS: 36415; 80048; 80061; 83036; 84439; 84443; 84450; 84460

== ENCOUNTER 2024-05-13 09:05 | Outpatient (AMB) | payer MEDICARE, OTHER, SELFPAY ==
--- NOTE | 2024-05-13 09:00 | MHC.PC.OV ---
Intake Visit Reasons: f/u labs Iphone [phone] Intake Note: Pt is having a telehealth visit to discuss recent lab results Allergies levofloxacin Adverse Reaction (Severe, Uncoded 05/13/24 09:34) Joint Pain Medication List - Last Reconciled 05/13/24 by Mami Wang MD atenolol 25 mg PO DAILY Ca-D3-mag gu-njeu-xei-kendall-bor 600 mg calcium- 20 mcg-50 mg (Calcium 600-D3 Plus (mag-zinc)) 1 tab PO DAILY cephalexin 250 mg PO DAILY cholecalciferol (vitamin D3) 25 mcg PO DAILY gabapentin 600 mg PO BEDTIME levothyroxine 75 mcg PO DAILY lorazepam 0.5 mg PO DAILY PRN omeprazole 20 mg PO Q2D@0630 oxycodone-acetaminophen 5-325 mg 1 tab PO QD-QID PRN rosuvastatin 5 mg PO BEDTIME vitamin E mixed 400 units PO DAILY Tobacco use date assessed: 11/11/23 Fall risk assessment: No Falls in past year Last assessed Fall Risk: 05/13/24 Dental Screening Dental Screen Date: 05/13/24 Did you have a dental visit in the last 12 months?: Yes Did you have a dental problem in the last 6 months where you did not have access to dental care?: No Was dental information given to patient?: Patient has dentist HPI f/u labs Iphone [phone] HPI Details 68 year-old lady with hypertension, hyperlipidemia, acquired hypothyroidism, restless leg syndrome, here today for her follow-up. Has been compliant with taking her medications and has been trying to follow recommended diet. Recent fasting labs showed [facility] Medical History Impaired fasting glucose Osteoarthritis Osteopenia of left forearm Arthritis GERD (gastroesophageal reflux disease) Ovarian cyst Essential hypertension Dyslipidemia Restless leg syndrome Acquired hypothyroidism Fatigue Surgical History Hx of colonoscopy History of back surgery Status post total hip replacement, bilateral Hx laparoscopic cholecystectomy (07/04/96) Social History Household Members: Spouse Housing: Condominium Do you presently have visiting nurse or other home services: No Patient Tobacco Use Status: Former Tobacco user Years Smoked: 25 yrs e-Cigarette/Vaping Use: Never Used service: No Current occupational status: retired Cognitive needs: No Hearing needs: No Vision needs: Yes Questionnaire PHQ-9 Over the last 2 weeks, how often have you been bothered by any of the following problems? 1. Little interest or pleasure in doing things: not at all 2. Feeling down, depressed, or hopeless: not at all 3. Trouble falling or staying asleep, or sleeping too much: not at all 4. Feeling tired or having little energy: not at all 5. Poor appetite or overeating: not at all 6. Feeling bad about yourself - or that you are a failure or have let yourself or your family down: not at all 7. Trouble concentrating on things, such as reading the newspaper or watching television: not at all 8. Moving or speaking so slowly that other people could have noticed. Or the opposite - being so fidgety or restless that you have been moving around a lot more than usual: not at all 9. Thoughts that you would be better off or of hurting yourself in some way: not at all Total score: 0 Depression Screening Interpretation: Negative Depression Screening Done: Yes 44719 - PHQ-9 Billing: Yes Source: Developed by Drs. Piyush Santiago, Abimbola Palafox, Seth Omer and colleagues, with an educational mike from [employer]. Thrive Questionnaire Date Thrive assessed: 05/13/24 I am a: Patient What is your living situation today?: I have a steady place to live Within the past 12 months, did the food you bought not last and you didn't have the money to get more?: Never true Within the past 12 months, did you worry whether your food would run out before you got money to buy more?: Never true Do you have trouble paying for medicines?: No Do you have trouble getting transportation to medical appointments?: No Do you have trouble paying your heating and electricity bill?: No Do you have trouble taking care of your child, family member or friend?: No Do you have trouble with day-to-day activities such as bathing, preparing meals, shopping, managing finances, etc.?: No Are you currently unemployed and looking for a job?: No Are you interested in more education?: No Please select the resources that you would like help with: None Currently or been in a relationship where the following occur: No concerns reported THRIVE Score: 0 AUDIT C Alcohol Use Questionnaire (AUDIT-C) 1. How often do you have a drink containing alcohol?: Never Total Score: 0 COURTNEY-7 AMB Questionnaire COURTNEY-7 Date COURTNEY - 7 assessed: 05/13/24 Feeling nervous, anxious, or on edge: 0 = Not at all Not being able to stop or control worryin = Not at all Worrying too much about different things: 0 = Not at all Trouble relaxin = Not at all Being so restless that it is hard to sit still: 0 = Not at all Becoming easily annoyed or irritable: 0 = Not at all Feeling afraid as if something awful might happen: 0 = Not at all Total COURTNEY-7 score (0-4 normal; 5-9 mild; 10-14 moderate; 15-21 severe): 0 Source: Developed by Drs. Piyush Santiago, Abimbola Palafox, Seth Omer and colleagues, with an educational mike from [employer]. COURTNEY-7 Assessment Billing COURTNEY-7 Assessment Tool: COURTNEY-7 Assessment 21808 Review of Systems Const All systems reviewed & are unremarkable except as noted in HPI and below Reports no additional complaints Eyes Reports no additional complaints ENT Reports no additional complaints Card Reports no additional complaints Resp Reports no additional complaints GI Reports no additional complaints Reports as per HPI Musc Reports no additional complaints Skin/Breast Reports system reviewed and no additional complaints, except as documented Neuro Reports no additional complaints Psych Reports no additional complaints Endo Reports no additional complaints Thierno/Lymph Reports no additional complaints Aller/Immun Reports no additional complaints Physical exam (Primary Care) Tobacco/Smoking Status: Tobacco use Status Tobacco use date assessed 11/11/23 05/13/24 09:05 Patient Tobacco Use Status Former Tobacco user 05/13/24 09:05 e-Cigarette/Vaping Use Never Used 05/13/24 09:05 PHQ-9: PHQ-9 Score PHQ-9: Total score 0 05/13/24 09:37 Depression Screening Interpretation: Negative Thrive Assessment: Date of Thrive Assessment Date Thrive assessed 05/13/24 05/13/24 09:05 Currently or been in a relationship where the following occur: No concerns reported Telehealth Telehealth [facility] Location of provider rendering services: practice address Location of patient: address on file Patient Identification confirmed using: Name, : Yes Telehealth method: video Patient verbally consented to treatment: Yes Patient verbally consented to billing insurance company: Yes Patient informed of any privacy concerns related to visit: Yes Minutes spent on Phone/Video with Pt.: 25 Results Reviewed Results Reviewed: Name: Fide Edward Age/Sex: 68/F : 1955 Unit#: [id number] Attend Dr: Mami Wang MD Re05/05/24 Status: DEP REF Location: [facility] Disch: SPEC : [id number] SAMMIE: 05/05/24 STATUS: COMP REQ : [id number] RECD: 05/05/[address]: Mami Wang MD COMP: 05/05/24 ENTERED: 05/05/[address]: ORDERED: Met Prof Fast, AST, ALT, Lipid Panel, Free T4, TSH Test Result Flag Reference Sodium 142 135-145 mmol/L Potassium 4.1 3.3-5.1 mmol/L CL 104 96-108 mmol/L CO2 29 22-29 mmol/L Gap 13 12-20 BUN 11 9-16 mg/dL Creat 0.62 0.5-1.4 mg/dL eGFR > 60 Chronic Kidney Disease: Estimated GFR < 60 mL/min/1.73m2 Severe Kidney Disease: Estimated GFR < 15 mL/min/1.73m2 FBS 97 60-99 mg/dL CA 10.6 # H 8.4-10.2 mg/dL AST (GOT) 18 5-31 U/L ALT (GPT) 15 0-31 U/L Triglyceride 42 <150 mg/dL Desirable Triglyceride: less than 150 mg/dL Borderline High Triglyceride 150-199 mg/dL High Triglyceride: 200-499 mg/dL Very High Triglyceride: greater than or equal to 5OO mg/dL Cholesterol 153 <200 mg/dL Desirable Cholesterol: less than 200 mg/dL Borderline High Cholesterol: 200-239 mg/dL High Cholesterol: greater than 239 mg/dL LDL Calculated 92 <100 mg/dL Desirable LDL: less than 100 mg/dL Near Optimal/Above Optimal LDL: 110-129 mg/dL Borderline High LDL: 130-159 mg/dL High LDL: 160-189 mg/dL Very High LDL: greater than or equal to 190 mg/dL HDL 53 >40 mg/dL Desirable HDL: greater than 40 mg/dL Note: This HDL assay may give artificially low results in patients with liver disease. Free T4 1.54 0.71-1.85 ng/dL TSH 3rd Gen. 0.40 0.32-4.0 uIU/mL TSH 3rd Generation ([facility]) Coding Level of Care Code Tele Est Pt Level 4 (34376) Complex EM visit Add On G2211 Diagnoses Acquired hypothyroidism E03.9 Osteopenia of left forearm M85.832 Dyslipidemia E78.5 Essential hypertension I10 Impaired fasting glucose R73.01 Serum calcium elevated E83.52 Additional Codes PHQ-9 - 05270 - PHQ-9 Billing: Yes ([id number]) COURTNEY-7 Assessment Billing - COURTNEY-7 Assessment Tool: COURTNEY-7 Assessment 38251 ([id number]) Assessment & Plan Assessment & Plan (1) Acquired hypothyroidism: Code(s): E03.9 - Hypothyroidism, unspecified Category: Medical Plan: Latest TSH and free T4 within normal limits, continue current dose of levothyroxine at 75 mcg daily in a.m. (2) Osteopenia of left forearm: Comment: ff'd by Dr Carreno Code(s): M85.832 - Other specified disorders of bone density and structure, left forearm Category: Medical Plan: Repeat DEXA scan ordered for follow-up. Her adequate calcium intake in the from dietary sources and continue taking vitamin-D 325 mcg daily. (3) Dyslipidemia: Code(s): E78.5 - Hyperlipidemia, unspecified Category: Medical Plan: Reviewed recent fasting lipid profile with patient with levels within normal limits . Continue rosuvastatin 5 mg daily , in addition to adherence to low-cholesterol diet and regular exercise, at least 30 minutes 3 to 4 times a week. Advised patient to make healthy food choices, eat more fruits, vegetables, whole grains, wild caught fish and low-fat dairy. Limit amount of meat and fried or fatty food products, as well as processed foods and fast foods. Follow-up scheduled with repeat fasting lipid panel in 6 months. (4) Essential hypertension: Code(s): I10 - Essential (primary) hypertension Category: Medical Plan: Continued on atenolol 25 mg daily. Reinforced importance of following a low-salt diet and getting regular exercise. (5) Impaired fasting glucose: Code(s): R73.01 - Impaired fasting glucose Category: Medical Plan: Latest fasting glucose showed results within normal limits. Reminded about adherence to healthy eating habits and regular exercise to prevent further progression to diabetes later on in life. (6) Serum calcium elevated: Code(s): E83.52 - Hypercalcemia Plan: Serum ionized calcium ordered Orders: Orders XR DEXA axial skeleton 05/13/24 E03.9 - Hypothyroidism, unspecified, M85.832 - Other specified disorders of bone density and structure, left forearm, Z78.0 - Asymptomatic menopausal state Lipid Panel 10/25/24 E03.9 - Hypothyroidism, unspecified, E78.5 - Hyperlipidemia, unspecified, I10 - Essential (primary) hypertension, M85.832 - Other specified disorders of bone density and structure, left forearm, R73.01 - Impaired fasting glucose Calcium, Ionized 10/25/24 E03.9 - Hypothyroidism, unspecified, E78.5 - Hyperlipidemia, unspecified, I10 - Essential (primary) hypertension, M85.832 - Other specified disorders of bone density and structure, left forearm, R73.01 - Impaired fasting glucose Thyroid Stimulating Hormone 10/25/24 E03.9 - Hypothyroidism, unspecified, E78.5 - Hyperlipidemia, unspecified, I10 - Essential (primary) hypertension, M85.832 - Other specified disorders of bone density and structure, left forearm, R73.01 - Impaired fasting glucose Vitamin D 25-OH Total 10/25/24 E03.9 - Hypothyroidism, unspecified, E78.5 - Hyperlipidemia, unspecified, I10 - Essential (primary) hypertension, M85.832 - Other specified disorders of bone density and structure, left forearm, R73.01 - Impaired fasting glucose Basic Metabolic Panel Fasting 10/25/24 E03.9 - Hypothyroidism, unspecified, E78.5 - Hyperlipidemia, unspecified, I10 - Essential (primary) hypertension, M85.832 - Other specified disorders of bone density and structure, left forearm, R73.01 - Impaired fasting glucose Free T4 (Free Thyroxine) 10/25/24 E03.9 - Hypothyroidism, unspecified, E78.5 - Hyperlipidemia, unspecified, I10 - Essential (primary) hypertension, M85.832 - Other specified disorders of bone density and structure, left forearm, R73.01 - Impaired fasting glucose Alanine Aminotransferase 10/25/24 E03.9 - Hypothyroidism, unspecified, E78.5 - Hyperlipidemia, unspecified, I10 - Essential (primary) hypertension, M85.832 - Other specified disorders of bone density and structure, left forearm, R73.01 - Impaired fasting glucose Aspartate Amino Transferase 10/25/24 E03.9 - Hypothyroidism, unspecified, E78.5 - Hyperlipidemia, unspecified, I10 - Essential (primary) hypertension, M85.832 - Other specified disorders of bone density and structure, left forearm, R73.01 - Impaired fasting glucose
== END 2024-05-13 10:23 | disposition home or self-care (01) ==
LOC: HO.HMCC 09:05
PROVIDERS: PCP Internal Medicine; Visit Provider Internal Medicine
DX: E03.9 Hypothyroidism, unspecified (principal); M85.832 Other specified disorders of bone density and structure, left forearm; E78.5 Hyperlipidemia, unspecified; I10 Essential (primary) hypertension; R73.01 Impaired fasting glucose; E83.52 Hypercalcemia

== ENCOUNTER → 2024-05-13 09:05 | Outpatient (BNVA) | payer MEDICARE, OTHER, SELFPAY | PROVIDERS: PCP Internal Medicine; Visit Provider Internal Medicine | DX: E03.9 Hypothyroidism, unspecified (principal); M85.832 Other specified disorders of bone density and structure, left forearm; E78.5 Hyperlipidemia, unspecified; I10 Essential (primary) hypertension; R73.01 Impaired fasting glucose; E83.52 Hypercalcemia | CPT/HCPCS: 96127 ==

== ENCOUNTER 2024-05-27 12:11 | Outpatient (REF) | payer MEDICARE, OTHER, SELFPAY ==
[2024-05-27 16:16] LABS: Appearance Urine Clear; Color Urine Yellow; Glucose Urine UA Negative (Negative); Leukocyte Esterase Urine Moderate (2+) (Negative); Nitrite Urine Negative (Negative); Specific Gravity - Urine 1.015 (1.005-1.025); UMIC TRIGGER UA YES; Urine Blood Negative (Negative); Urine Ketones Negative (Negative); Urine Protein Negative (Neg-Trace)
[2024-05-27 16:24] LABS: Bacteria Urine None Seen (None Seen); Hyaline Casts Urine 0-2 /LPF (0-2); RBC Urine 0-2 /HPF (0-2); Squamous Epithelial Cell Urine 0-2 /HPF (0-2)
== END 2024-05-27 12:12 | disposition home or self-care (01) ==
LOC: HO.HMGCLDS 12:11
PROVIDERS: PCP Internal Medicine; Visit Provider Urology
DX: N20.0 Calculus of kidney (principal); N39.0 Urinary tract infection, site not specified
CPT/HCPCS: 81001; 87086

== ENCOUNTER 2024-11-14 10:39 | Outpatient (REF) | payer MEDICARE, OTHER, SELFPAY ==
--- OUTSIDE RECORDS SUMMARY | 2024-11-14 11:43 | XMS_ITS | Patient Health Record ---
Author Organization [facility] Address [address] [place] [address] Care Team Providers Care Clamshell Engineer Name Role Phone Felipe MILLAN, Mami Primary Care Provider Mat Martin Jr Allergies No Known Allergies Reason For Referral No Information Medications Medication SIG (Take, Route, Frequency, Duration) Notes Start Date End Date Status Percocet 5-325 MG 1 tablet as needed Orally every 6 hrs as needed Active Atenolol 25mg Active Levothyroxine Sodium 100mcg Active Omeprazole 20 MG TAKE 1 CAPSULE BY MOUTH 30 MINUTES BEFORE MORNING MEAL ONCE A DAY for 90 days Active Vitamin D3 2000 UNIT Orally Once a day Active Vitamin C Active LORazepam 0.5mg Not- Taking MiraLax (colon prep) 17 GM/SCOOP mixed with Gatorade or Crystal Light Orally begin at 5:00 p.m. the day before the procedure for 1 day 08/18/2022 Active buPROPion HCl ER (SR) 200mg Not-Taking Rosuvastatin Calcium 10 MG 1 tablet Orally Once a day for 30 day(s) Active Lisinopril 10mg Not- Taking Gabapentin 400 MG 1 capsule Orally Once a day for 30 day(s) Active Melatonin 3 MG 1 tablet at bedtime as needed Orally Once a day for 30 day(s) Active Multivitamin - 1 tablet Orally Once a day for 30 day(s) Active Immunizations Vaccine Route Administration Date Status Comme nts Influenza Unknown 02/11/2022 Administered Problems Problem Type SNOMED Code ICD Code Onset Dates Problem Status W/U Status Risk Notes Problem 490852854 Colon cancer screening (Z12.11) Active confirmed Problem 030167175 Gastroesophageal reflux disease without esophagitis (K21.9) Active confirmed Problem 8292324 Diverticulitis o f large intestine with abscess without bleeding (K57.20) Active confirmed Encounters Encounter Location Date Provider Diagnosis [facility] [address] [place] [address] 03/03/2024 Mat Diane Jr Plan Of Treatment Future Test Test Name Order Date COLONOSCOPY 08/09/2012 COLONOSCOPY 08/18/2022 Insurance Providers Payer Name Payer Address Payer Phone Subscriber Number Group Number Insured Name Patient Relationship to Insured Coverage Start Date Coverage End Date MEDICARE OF [place] [address] [id number] [address] [phone] [id number] ROHANJULIANA Ibarra Self - patient is the insured [facility] [address] [place] [address] [id number] JULIANA LYNN Self - patient is the insured Medical (General) History Medical History History ICD Code Gastroesophageal reflux dise ase, EGD 10/05/09, no H. pylori or De La Paz's esophagus Colonoscopy 09/24/12, hyperplastic polyp, ten-year followup hyperthyroidism Restless leg syndrome diverticulitis Elevated cholesterol Surgical History Surgery Date(Month/Year) left hip replacement right hip replacement back surgery knee surgery cataract-lens implants Future surgery right rotator cuff - [facility] Hospitalization History Reason Date(Month/Year) diverticulitis 02/15
[2024-11-14 13:38] LABS: Alanine Aminotransferase 11 U/L (0-31); Anion Gap 10 (12-20); Aspartate Amino Transferase 23 U/L (5-31); Blood Urea Nitrogen 11 mg/dL (9-16); Calcium 9.5 mg/dL (8.4-10.2); Carbon Dioxide 29 mmol/L (22-29); Chloride 106 mmol/L (96-108); Cholesterol 146 mg/dL (<200); Estimated Glomerular Filt Rate > 60; HDL Cholesterol 57 mg/dL (>40); Potassium 4.2 mmol/L (3.3-5.1); Sodium 141 mmol/L (135-145); Triglycerides 62 mg/dL (<150)
[2024-11-14 13:41] LABS: Free T4 (Free Thyroxine) 1.51 ng/dL (0.71-1.85); Thyroid Stimulating Hormone 0.15 uIU/mL (0.32-4.0)
[2024-11-15 13:09] LABS: Calcium, Ionized 5.4 mg/dL (4.7-5.5)
== END 2024-11-14 10:40 | disposition home or self-care (01) ==
LOC: HO.HMGCLDS 10:39
PROVIDERS: PCP Internal Medicine; Visit Provider Internal Medicine
DX: R73.01 Impaired fasting glucose (principal); E78.5 Hyperlipidemia, unspecified; E03.9 Hypothyroidism, unspecified; M85.832 Other specified disorders of bone density and structure, left forearm; I10 Essential (primary) hypertension
CPT/HCPCS: 36415; 80048; 80061; 82306; 82330; 84439; 84443; 84450; 84460

== ENCOUNTER 2024-11-17 13:13 | Outpatient (AMB) | payer MEDICARE, OTHER, SELFPAY ==
--- OUTSIDE RECORDS SUMMARY | 2024-10-15 17:30 | XMS_ITS ---
Author Organization [facility] Address [address] [facility] [address] [place] [address] Care Team Providers Care It Business Process Architect Name Role Phone BELL POLKIECH Primary Care Provider [phone] Migration, Provider Unavailable Unavailable REASON FOR VISIT Multum To Medispan Conversion Encounter Medications Medication SIG (Take, Route, Frequency, Duration) Notes Start Date End Date Status Levothyroxine Sodium 75 MCG 1 tab(s) ora lly once a day; Duration: 90 Days 11/22/2019 Active Gabapentin 600 MG 1 tab(s) orally qhs; Duration: 90 Active Atenolol 25 MG 1 tab(s) orally once a day; Duration: 90 Days 06/04/2020 Active Encounters Encounter Location Date Provider Diagnosis [facility] [address] [facility] [address] [place] [address] 10/15/2024 Provider Migration Hypothyroidism (acquired) E03.9 Assessments Encounter Date Diagnosis (ICD Code) Assessment Notes Treatment Notes Treatment Clinical Notes Section Notes 10/15/2024 Hypothyroidism (acquired) (ICD-10 - E03.9) Plan Of Treatment Medication Medication Name Sig Start Date Stop Date Notes Levothyroxine Sodium 75 MCG 1 tab(s) ora lly once a day; Duration: 90 Days 11/22/2019 Gabapentin 600 MG 1 tab(s) orally qhs; Duration: 90 Atenolol 25 MG 1 tab(s) orally once a day; Duration: 90 Days 06/04/2020 Progress Notes * JULIANA LYNNDOB: [birth year] (68 yo F)Acc No.[id number]:10/15/2024 Patient: JULIANA ALTMAN Provider: :1955 A ge:68 Y S ex:Female Date:10/15/2024 Address:[address] [place] [address], [id number] Pcp:LUL POLK Subjective: * Chief Complaints: * 1 . Multum To Medispan Conversion Encounter. * Medical History: Objective: * Vitals: Assessment: * Assessment: 1. H ypothyroidism (acquired) - E03.9 Plan: * Treatment: 2. O thers Refill Gabapentin Tablet, 600 MG, 1 tab(s), orally, qhs, 90, 90, Refills 2; C ontinue Atenolol Tablet, 25 MG, 1 tab(s), orally, once a day, 90 Days, 90 Tablet, Refills 2. * Images: * Electronic signature of Prov ider Migration on 11/17/2024 at 01:25 PM EDT Sign off status: Pending * Provider: Date: 10/15/2024 Generated for iKta badillo/Makeda/Liamitting on: 11/17/2024 01:25 PM EDT
--- NOTE | 2024-11-17 13:25 | A.OFFPC_ITS ---
Vital Signs 11/17/24 13:28 Height 5 ft 2 in Weight 129 lb BMI 23.6 BP 122/82 Blood Pressure Location Lt brachial Position Sitting Respiration 16 Pulse 71 Pulse Source Pulse Oximeter Temp 98.1 F Temp Source Oral Pulse Oximetry (%) 100 Oxygen Delivery Method Room Air Intake Visit Reasons: Annual PE/lab f/u Intake Note: Pt is here for her annual PE. Parts Sales Representative Required: No Accompanied by: Self / Same As Patient Allergies levofloxacin Adverse Reaction (Severe, Uncoded 11/17/24 13:38) Joint Pain Medication List - Last Reconciled 11/17/24 by Mami Wang MD atenolol 25 mg PO DAILY Ca-D3-mag oc-hpfs-yoi-kendall-bor 600 mg calcium- 20 mcg-50 mg (Calcium 600-D3 Plus (mag-zinc)) 1 tab PO DAILY cephalexin 250 mg PO DAILY cholecalciferol (vitamin D3) 25 mcg PO DAILY gabapentin 600 mg PO BEDTIME levothyroxine 75 mcg PO DAILY lorazepam 0.5 mg PO DAILY PRN omeprazole 20 mg PO Q2D@0630 oxycodone-acetaminophen 5-325 mg 1 tab PO QD-QID PRN rosuvastatin 5 mg PO BEDTIME vitamin E mixed 400 units PO DAILY Tobacco use date assessed: 11/17/24 Fall risk assessment: No Falls in past year Last assessed Fall Risk: 11/17/24 Dental Screening Dental Screen Date: 05/13/24 Did you have a dental visit in the last 12 months?: Yes Did you have a dental problem in the last 6 months where you did not have access to dental care?: No Was dental information given to patient?: Patient has dentist HPI Annual PE/lab f/u HPI Details 68 year-old lady with history significan t for hypertension, hyperlipidemia, acquired hypothyroidism, restless leg syndrome, here today for her physical exam., blood pressure stable and controlled on atenolol 25 mg daily. Recent fasting labs showed normal lipids,, vitamin-D level, thyroid levels are within normal limits as well as fasting glucose and renal function. Up-to-date with her screening mammogram done February 2024 with benign findings, bone density scan was done in 2022 which showed presence of osteopenia in left forearm, no history of fractures. Her last colonoscopy was done by Dr. Diane in 2022 which showed benign findings, repeat due again in 2032. She is followed by Rheumatology, Dr. Sigala. For her osteoarthritis currently takes Percocet as needed for severe pain Has history of recurrent urinary tract infection and due to nephrolithiasis, currently followed [place] [facility] and placed on cephalexin 250 mg once a day [facility] Medical History (Updated 11/19/24 @ 03:11 by Mami Wang MD) History of nephrolithiasis Impaired fasting glucose Osteoarthritis Osteopenia of left forearm Arthritis GERD (gastroesophageal reflux disease) Ovarian cyst Essential hypertension Dyslipidemia Restless leg syndrome Acquired hypothyroidism Fatigue Surgical History Hx of colonoscopy History of back surgery Status post total hip replacement, bilateral Hx laparoscopic cholecystectomy (07/04/96) Social History Household Members: Spouse Housing: [facility] Do you presently have visiting nurse or other home services: No Patient Tobacco Use Status: Former Tobacco user Years Smoked: 25 yrs e-Cigarette/Vaping Use: Never Used service: No Current occupational status: retired Cognitive needs: No Hearing needs: No Vision needs: Yes Questionnaire PHQ-9 Over the last 2 weeks, how often have you been bothered by any of the following problems? 1. Little interest or pleasure in doing things: not at all 2. Feeling down, depressed, or hopeless: not at all 3. Trouble falling or staying asleep, or sleeping too much: several days 4. Feeling tired or having little energy: several days 5. Poor appetite or overeating: several days 6. Feeling bad about yourself - or that you are a failure or have let yourself or your family down: not at all 7. Trouble concentrating on things, such as reading the newspaper or watching television: not at all 8. Moving or speaking so slowly that other people could have noticed. Or the opposite - being so fidgety or restless that you have been moving around a lot more than usual: not at all 9. Thoughts that you would be better off or of hurting yourself in some way: not at all Total score: 3 Depression Screening Interpretation: Negative Depression Screening Done: Yes 14732 - PHQ-9 Billing: Yes Source: Developed by Drs. Piyush Santiago, Abimbola Palafox, Seth Omer and colleagues, with an educational mike from [employer]. Thrive Questionnaire Date Thrive assessed: 05/13/24 I am a: Patient What is your living situation today?: I have a steady place to live Within the past 12 months, did the food you bought not last and you didn't have the money to get more?: Never true Within the past 12 months, did you worry whether your food would run out before you got money to buy more?: Never true Do you have trouble paying for medicines?: No Do you have trouble getting transportation to medical appointments?: No Do you have trouble paying your heating and electricity bill?: No Do you have trouble taking care of your child, family member or friend?: No Do you have trouble with day-to-day activities such as bathing, preparing meals, shopping, managing finances, etc.?: No Are you currently unemployed and looking for a job?: No Are you interested in more education?: No Please select the resources that you would like help with: None Currently or been in a relationship where the following occur: No concerns repo rted THRIVE Score: 0 AUDIT C Alcohol Use Questionnaire (AUDIT-C) 1. How often do you have a drink containing alcohol?: Monthly or less 3. How often do you have six or more drinks on one occasion?: Never Total Score: 1 Score Reviewed/Action Taken: Yes COURTNEY-7 AMB Questionnaire COURTNEY-7 Date COURTNEY - 7 assessed: 11/17/24 Feeling nervous, anxious, or on edge: 0 = Not at all Not being able to stop or control worryin = Not at all Worrying too much about different things: 0 = Not at all Trouble relaxin = Not at all Being so restless that it is hard to sit still: 1 = Several days Becoming easily annoyed or irritable: 0 = Not at all Feeling afraid as if something awful might happen: 0 = Not at all Total COURTNEY-7 score (0-4 normal; 5-9 mild; 10-14 moderate; 15-21 severe): 1 Source: Developed by Drs. Piyush Santiago, Abimbola Palafox, Seth Omer and colleagues, with an educational mike from [employer]. COURTNEY-7 Assessment Billing COURTNEY-7 Assessment Tool: COURTNEY-7 Assessment 50743 Review of Systems Const All systems reviewed & are unremarkable except as noted in HPI and below Reports no additional complaints Eyes Details: Sees Dr. Simpson Reports no additional complaints ENT Details: Sees [facility] Reports no additional complaints Card Reports no additional complaints Resp Reports no additional complaints GI Reports no additional complaints Reports as per HPI Musc Reports as per HPI Skin/Breast Reports system reviewed and no additional complaints, except as documented Neuro Reports no additional complaints Psych Reports no additional complaints Endo Reports no additional complaints Thierno/Lymph Reports no additional complaints Aller/Immun Reports no additional complaints Physical exam (Primary Care) Vital Signs: Last Vital Signs Temp 98.1 F 11/17/24 13:28 Pulse 71 11/17/24 13:28 Resp 16 11/17/24 13:28 BP 122/82 11/17/24 13:28 Pulse Ox 100 11/17/24 13:28 Oxygen Delivery Method Room Air 11/17/24 13:28 BMI result Body Mass Index 23.6 Tobacco/Smoking Status: Tobacco use Status Tobacco use date assessed 11/17/24 11/17/24 13:32 Patient Tobacco Use Status Former Tobacco user 11/17/24 13:25 e-Cigarette/Vaping Use Never Used 11/17/24 13:25 PHQ-9: PHQ-9 Score PHQ-9: Total score 3 11/17/24 14:02 Depression Screening Interpretation: Negative Thrive Assessment: Date of Thrive Assessment Date Thrive assessed 05/13/24 11/17/24 13:25 Currently or been in a relationship where the following occur: No concerns reported Const General: no acute distress Orientation/consciousness: patient oriented x3 HENMT Ears: external ears normal and EAC's normal General nose exam: Normal external nose present, Normal nasal mucous membranes and turbinates present and No nasal discharge present Mouth: oropharynx normal and moist mucous membranes Eyes General: appearance normal, both eyes and all related structures Neck Neck: Yes full ROM, Yes no lymphadenopathy and Yes supple Chest Breast/axilla palpation: normal palpation of the breasts Resp Effort & Inspection: normal respiratory effort and able to speak in complete sentences Auscultation: clear to auscultation bilaterally Cardio Rate: regular rate Rhythm: regular rhythm Heart sounds: S1 normal heart sound present and S2 normal heart sound present GI Inspection: Yes normal to inspection Palpation (GI): Soft to palpation, nontender and no masses Auscultation: normal bowel sounds General: Yes no CVA tenderness Back/Spine/Pelvis Back: no CVA tenderness and No back tenderness Skin General skin exam: no rashes or lesions noted Neuro General: patient oriented x3, gait normal, moves all extremities and no focal motor deficits Cognition (Neuro): normal cognition Gait exam (Neuro): Normal gait present Extrem General: Yes full ROM, Yes no joint enlargement, Yes no pedal edema, Yes no calf tenderness and Yes normal gait Psych Appearance: grossly normal and well kempt Mental Status: mental status grossly normal Speech and movement: Normal speech and movement present Affect: normal affect Results Reviewed Results Reviewed: Name: Fide Edward Age/Sex: 68/F : 1955 Unit#: [id number] Attend Dr: Mami Wang MD Re11/14/24 Status: DEP REF Location: [facility] Disch: SPEC : [id number] SAMMIE: 11/14/24 STATUS: COMP REQ : [id number] RECD: 11/14/24-[address]: Mami Wang MD COMP: 11/14/24-1340 ENTERED: 11/14/24-[address] [facility] [address]: ORDERED: Met Prof Fast, AST, ALT, Lipid Panel, Vitamin D 25-OH, Free T4, TSH Test Result Flag Reference Sodium 141 135-145 mmol/L Potassium 4.2 3.3-5.1 mmol/L CL 106 96-108 mmol/L CO2 29 22-29 mmol/L Gap 10 L 12-20 BUN 11 9-16 mg/dL Creat 0.59 0.5-1.4 mg/dL eGFR > 60 Chronic Kidney Disease: Estimated GFR < 60 mL/min/1.73m2 Severe Kidney Disease: Estimated GFR < 15 mL/min/1.73m2 FBS 97 60-99 mg/dL CA 9.5 # 8.4-10.2 mg/dL AST (GOT) 23 5-31 U/L ALT (GPT) 11 0-31 U/L Triglyceride 62 <150 mg/dL Desirable Triglyceride: less than 150 mg/dL Borderline High Triglyceride 150-199 mg/dL High Triglyceride: 200-499 mg/dL Very High Triglyceride: greater than or equal to 5OO mg/dL Cholesterol 146 <200 mg/dL Desirable Cholesterol: less than 200 mg/dL Borderline High Cholesterol: 200-239 mg/dL High Cholesterol: greater than 239 mg/dL LDL Calculated 77 <100 mg/dL Desirable LDL: less than 100 mg/dL Near Optimal/Above Optimal LDL: 110-129 mg/dL Borderline High LDL: 130-159 mg/dL High LDL: 160-189 mg/dL Very High LDL: greater than or equal to 190 mg/dL HDL 57 >40 mg/dL Desirable HDL: greater than 40 mg/dL Note: This HDL assay may give artificially low results in patients with liver disease. Vitamin D 25-OH 66.3 >30 ng/mL Health Based Reference Values* < 20 ng/mL Deficient 20-30 ng/mL Insufficient > 30 ng/mL Sufficient *Alycia MONTES. N Engl J Med. 2007;357:266-280 There is no well-established upper level of normal vitamin D levels. Some laboratories use 50 ng/mL as an upper limit of normal. However, toxicity is patient-dependent and may occur at any level. Careful correlation with the patient's presentation is necessary and, if there is concern for vitamin D toxicity, treatment should be considered irrespective of the serum level. Care must be taken in interpreting Vitamin D results from different laboratories and methodologies. Published data demonstrated that results from patients undergoing hemodialysis may show a negative bias when tested with various automated 25-OH vitamin D assays when compared to LC-MS/MS. When testing samples from patients whose predominant form of Vitamin D is Vitamin D2, such as patients receiving Vitamin D2 supplementation, results that are subtherapeutic should be confirmed with another method such as LC-MS/MS. Free T4 1.51 0.71-1.85 ng/dL TSH 3rd Gen. 0.15 L 0.32-4.0 uIU/mL TSH 3rd Generation ([facility]) Coding Level of Care Code Est Pt Prev Care >65y(11395) Diagnoses Annual visit for general adult medical examination with abnormal findings Z00.01 Essential hypertension I10 Dyslipidemia E78.5 Acquired hypothyroidism E03.9 Osteopenia of left forearm M85.832 Recurrent UTI N39.0 History of nephrolithiasis Z87.442 Primary osteoarthritis involving multiple joints M15.0 Osteoarthritis location: multiple joints Osteoarthritis type: primary Additional Codes COURTNEY-7 Assessment Billing - COURTNEY-7 Assessment Tool: COURTNEY-7 Assessment 90544 ([id number]) PHQ-9 - 90359 - PHQ-9 Billing: Yes ([id number]) Assessment & Plan Assessment & Plan (1) Annual visit for general adult medical examination with abnormal findings: Code(s): Z00.01 - Encounter for general adult medical examination with abnormal findings Plan: Recent fasting lab results reviewed with PCP patient continue regular dental visit every 6 months and regular eye exams, at least every 2 years. Take adequate calcium in diet and vitamin-D 3 at 2000 IU per cap once a day, in addition to weight-bearing exercises to help maintain good muscle tone and weight control. Up-to-date with her screening mammogram, and colonoscopy up-to-date with all her vaccinations. Due for a repeat bone density scan this year, ordered by Dr. Sigala. (2) Essential hypertension: Code(s): I10 - Essential (primary) hypertension Category: Medical Plan: Blood pressure at goal of less than 130/80. Continue with current medication. Reinforced importance of following a low sodium diet, getting regular exercise, and lowering stress levels. (3) Dyslipidemia: Code(s): E78.5 - Hyperlipidemia, unspecified Category: Medical Plan: Reviewed recent fasting lipid profile with patient with levels within normal limits . Continue rosuvastatin 5 mg daily , in addition to adherence to low-cholesterol diet and regular exercise, at least 30 minutes 3 to 4 times a week. Advised patient to make healthy food choices, eat more fruits, vegetables, whole grains, wild caught fish and low-fat dairy. Limit amount of meat and fried or fatty food products, as well as processed foods and fast foods. Follow-up scheduled with repeat fasting lipid panel in months. (4) Acquired hypothyroidism: Code(s): E03.9 - Hypothyroidism, unspecified Category: Medical Plan: Latest thyroid levels are within normal limits, continued on current dose of levothyroxine 75 mcg daily (5) Osteopenia of left forearm: Comment: ff'd by Dr Carreno Code(s): M85.832 - Other specified disorders of bone density and structure, left forearm Category: Medical Plan: Followed by Rheumatology, due for her bone density scan this year. Stressed importance of doing regular weight-bearing exercise and taking adequate calcium from dietary sources and continue taking vitamin D3 2000 units daily (6) Recurrent UTI: Code(s): N39.0 - Urinary tract infection, site not specified Category: Medical Plan: Currently followed by Urology, on cephalexin 250 mg once daily (7) History of nephrolithiasis: Code(s): Z87.442 - Personal history of urinary calculi Category: Medical Plan: Followed by [facility] (8) Osteoarthritis: Comment: sees Dr Carreno Code(s): M19.90 - Unspecified osteoarthritis, unspecified site Category: Medical Qualifiers: Osteoarthritis location: multiple joints Osteoarthritis type: primary Qualified Code(s): M15.0 - Primary generalized (osteo)arthritis Plan: Followed by , takes oxycodone-acetaminophen 5-325 mg 1 tablet as needed for joint pain
--- OUTSIDE RECORDS SUMMARY | 2024-11-17 13:26 | XMS_ITS | Patient Health Record ---
Author Organization [facility] Address [address] [place] [id number] Care Team Providers Care Batch Unit Treater Name Role Phone Felipe MILLAN, Mami Primary [...] Problem Status W/U Status Risk Notes Problem 713030319 Colon cancer screening (Z12.11) Active confirmed Problem 034007491 Gastroesophageal reflux disease without esophagitis (K21.9) Active confirmed Problem 2914100 Diverticulitis o f large intestine with abscess without bleeding (K57.20) Active confirmed Encounters Encounter Location Date Provider Diagnosis [facility] [address] [place] [address] 03/03/2024 Mat Diane Jr Plan Of Treatment Future Test Test Name Order Date COLONOSCOPY 08/09/2012 COLONOSCOPY 08/18/2022 Insurance Providers Payer Name Payer Address Payer Phone Subscriber Number Group Number Insured Name Patient Relationship to Insured Coverage Start Date Coverage End Date MED[place]ARE OF [place] [address] [place] [address] [phone] [id number] ROHANJULIANA Ibarra Self - patient is the insured [facility] [address] [place] [address] [id number] JULIANA LYNN Self - patient is the [...] implants Future surgery right rotator cuff - [facility] Hospitalization History Reason Date(Month/Year) diverticulitis 02/15
[2024-11-17 13:28] VITALS: BP 122/82; PULSE 71; RESP 16; TEMP 36.7; O2SAT 100; BMI 23.6
== END 2024-11-17 14:06 | disposition home or self-care (01) ==
LOC: HO.HMCC 13:14
PROVIDERS: PCP Internal Medicine; Visit Provider Internal Medicine
DX: Z00.01 Encounter for general adult medical examination with abnormal findings (principal); I10 Essential (primary) hypertension; E78.5 Hyperlipidemia, unspecified; E03.9 Hypothyroidism, unspecified; M85.832 Other specified disorders of bone density and structure, left forearm; N39.0 Urinary tract infection, site not specified; Z87.442 Personal history of urinary calculi; M15.0 Primary generalized (osteo)arthritis

== ENCOUNTER → 2024-11-17 13:13 | Outpatient (BNVA) | payer MEDICARE, OTHER, SELFPAY | PROVIDERS: PCP Internal Medicine; Visit Provider Internal Medicine | DX: Z00.01 Encounter for general adult medical examination with abnormal findings (principal); I10 Essential (primary) hypertension; E03.9 Hypothyroidism, unspecified; E78.5 Hyperlipidemia, unspecified; N39.0 Urinary tract infection, site not specified; M85.832 Other specified disorders of bone density and structure, left forearm; N15.0 Balkan nephropathy; Z87.442 Personal history of urinary calculi | CPT/HCPCS: 96127; 99397 ==

== ENCOUNTER 2025-01-03 09:37 | Outpatient (REF) | payer MEDICARE, OTHER, SELFPAY ==
--- OUTSIDE RECORDS SUMMARY | 2024-10-15 17:30 | XMS_ITS ---
Author Organization [facility] Address [address] [facility] [address] [place] [address] Care Team Providers Care Legal Instructor Name Role Phone FELICITAS LUL Primary Care Provider Migration, Provider Unavailable Unavailable REASON FOR VISIT Multum To Medispan Conversion Encounter Medications Medication SIG (Take, Route, Frequency, Duration) Notes Start Date End Date Status Levothyroxine Sodium 75 MCG Tablet 1 tab(s) orally once a day; Duration: 90 Days 11/22/2019 Active Gabapentin 600 MG Tablet 1 tab(s) orally qhs; Duration: 90 Active Atenolol 25 MG Tablet 1 tab(s) orally on ce a day; Duration: 90 Days 06/04/2020 Active Encounters Encounter Location Date Provider Diagnosis [facility] [address] [facility] [address] [place] [address] 10/15/2024 Provider Migration Hypothyroidism (acquired) E03.9 Assessments Encounter Date Diagnosis (ICD Code) Assessment Notes Treatment Notes Treatment Clinical Notes Section Notes 10/15/2024 Hypothyroidism (acquired) (ICD-10 - E03.9) Plan Of Treatment Medication Medication Name Sig Start Date Stop Date Notes Levothyroxine Sodium 75 MCG Tablet 1 tab(s) orally once a day; Duration: 90 Days 11/22/2019 Gabapentin 600 MG Tablet 1 tab(s) orally qhs; Duration: 90 Atenolol 25 MG Tablet 1 tab(s) orally on ce a day; Duration: 90 Days 06/04/2020 Progress Notes * JULIANA LYNNDOB: [birth year] (69 yo F)Acc No.[id number]:10/15/2024 Patient: JULIANA ALTMAN Provider: :1955 A ge:68 Y S ex:Female Date:10/15/2024 Address:[address] [place] [address], [place], [place] Pcp:LUL POLK Subjective: * Chief Complaints: * M ultum To Medispan Conversion Encounter Assessment: * Assessment: 1. H ypothyroidism (acquired) - E03.9 Plan: * Treatment: 2. O thers Refill Gabapentin Tablet, 600 MG, 1 tab(s), orally, qhs, 90, 90, Refills 2; C ontinue Atenolol Tablet, 25 MG, 1 tab(s), orally, once a day, 90 Days, 90 Tablet, Refills 2. * Electronic signature of Prov ider Migration on 01/03/2025 at 11:06 AM EDT Sign off status: Pending * Provider: Date: 10/15/2024 Generated for Kita badillo/Makeda/Liamitting on: 01/03/2025 11:06 AM EDT
--- OUTSIDE RECORDS SUMMARY | 2025-01-03 11:06 | XMS_ITS | Patient Health Record ---
Author Organization [facility] Address [address] [place] [phone] Care Team Providers Care Intermodal Truck Driver Name Role Phone Felipe MILLAN, Mami Primary [...] Problem Status W/U Status Risk Notes Problem 007551477 Colon cancer screening (Z12.11) Active confirmed Problem 394033028 Gastroesophageal reflux disease without esophagitis (K21.9) Active confirmed Problem 6318446 Diverticulitis o f large intestine with abscess without bleeding (K57.20) Active confirmed Encounters Encounter Location Date Provider Diagnosis [facility] [address] [place] [address] 03/03/2024 Mat Diane Jr Plan Of Treatment Future Test Test Name Order Date COLONOSCOPY 08/09/2012 COLONOSCOPY 08/18/2022 Insurance Providers Payer Name Payer Address Payer Phone Subscriber Number Group Number Insured Name Patient Relationship to Insured Coverage Start Date Coverage End Date [place]ARE OF [place] [address] [place] [address] [id number] ROHANJULIANA Ibarra Self - patient is the insured [facility] [address] [place] [phone] [id number] JULIANA LYNN Self - patient is the [...] implants Future surgery right rotator cuff - [facility] Hospitalization History Reason Date(Month/Year) diverticulitis 02/15
--- OUTSIDE RECORDS SUMMARY | 2025-01-03 11:06 | XMS_ITS | Patient Health Record ---
Author Organization [facility] Address [address] [place] [address] Care Team Providers Care Complaint Operator Name Role Phone BELL POLKIECH Primary Care Provider Migration, Provider Unavailable Unavailable Reason For Referral No Information Medications Medication SIG (Take, Route, Frequency, Duration) Notes Start Date End Date Status Levothyroxine Sodium 75 MCG Tablet 1 tab(s) orally once a day; Duration: 90 Days 11/22/2019 Active Gabapentin 600 MG Tablet 1 tab(s) orally qhs; Duration: 90 Active Atenolol 25 MG Tablet 1 tab(s) orally on ce a day; Duration: 90 Days 06/04/2020 Active Problems Problem Type SNOMED Code ICD Code Onset Dates Problem Status W/U Status Risk Notes Problem Restless legs syndrome (11728019) Restless legs syndrome (G25.81) Active confirmed Problem Hypothyroidism (75210777) Hypothyroidism (acquired) (E03.9) Active confirmed Encounters Encounter Location Date Provider Diagnosis [facility] [address] [place] [address] 10/15/2024 Provider Migration Hypothyroidism (acquired) E03.9 Assessments Encounter Date Diagnosis (ICD Code) Assessment Notes Treatment Notes Treatment Clinical Notes Section Notes 10/15/2024 Hypothyroidism (acquired) (ICD-10 - E03.9) Plan Of Treatment No Information
[2025-01-03 13:05] LABS: MANUAL DIFF FLAG NO
[2025-01-03 13:24] LABS: Hematocrit 38.8 % (37.0-47.0); Hemoglobin 12.4 g/dl (12.0-16.0); Imm Gran Abs Auto 0.01 X10*3/uL (0.00-0.03); Imm Gran Pct Auto 0.2 % (0.0-0.4); Lymphocytes Absolute Auto 1.1 X10*3/uL (1.2-4.9); Mean Corpuscular HGB Conc 32.0 g/dl (31.0-35.0); Mean Corpuscular Hemoglobin 30.1 pg (27.0-33.0); Mean Corpuscular Volume 94.2 fL (80.0-98.0); NRBC Abs Auto 0.000 X10*3/uL (0.0-0.012); NRBC Pct Auto 0.0 /100WBC (0.0-0.2); Platelet Count 286 X10*3/uL (160-400); Red Blood Count 4.12 X10*6/uL (4.20-5.50); White Blood Count 4.9 X10*3/uL (4.8-10.8)
[2025-01-03 13:45] LABS: Alanine Aminotransferase 13 U/L (0-31); Anion Gap 11 (12-20); Aspartate Amino Transferase 25 U/L (5-31); Blood Urea Nitrogen 9 mg/dL (9-16); Calcium 9.4 mg/dL (8.4-10.2); Carbon Dioxide 29 mmol/L (22-29); Chloride 106 mmol/L (96-108); Estimated Glomerular Filt Rate > 60; Magnesium 1.9 mg/dL (1.6-2.6); Potassium 3.9 mmol/L (3.3-5.1); Sodium 142 mmol/L (135-145)
[2025-01-03 14:02] LABS: Free T4 (Free Thyroxine) 1.42 ng/dL (0.71-1.85); Thyroid Stimulating Hormone 0.12 uIU/mL (0.32-4.0)
[2025-01-04 14:29] LABS: Calcium, Ionized 5.3 mg/dL (4.7-5.5)
== END 2025-01-03 09:38 | disposition home or self-care (01) ==
LOC: HO.HMGCLDS 09:37
PROVIDERS: PCP Internal Medicine; Visit Provider Internal Medicine
DX: I10 Essential (primary) hypertension (principal); M85.832 Other specified disorders of bone density and structure, left forearm; G25.81 Restless legs syndrome; R73.01 Impaired fasting glucose; E78.5 Hyperlipidemia, unspecified; E03.9 Hypothyroidism, unspecified; Z86.39 Personal history of other endocrine, nutritional and metabolic disease
CPT/HCPCS: 36415; 80048; 82330; 83735; 84439; 84443; 84450; 84460; 85025

== ENCOUNTER 2025-01-06 08:10 | Outpatient (AMB) | payer MEDICARE, OTHER, SELFPAY ==
--- OUTSIDE RECORDS SUMMARY | 2024-10-15 17:30 | XMS_ITS ---
Author Organization [facility] Address [address] [facility] [address] [place] [address] Care Team Providers Care Second Hand Name Role Phone FELICITAS LUL Primary Care [...] Active Encounters Encounter Location Date Provider Diagnosis [facility] [address] [facility] [address] [place] [address] 10/15/2024 Provider Migration Hypothyroidism (acquired) E03.9 Assessments [...] * JULIANA LYNNDOB: [birth year] (69 yo F)Acc No.[id number]:10/15/2024 Patient: JULIANA ALTMAN Provider: :1955 A ge:68 Y S ex:Female Date:10/15/2024 Address:[address] [place] [address], [place], [place] Pcp:LUL POLK Subjective: * Chief Complaints: * [...] Electronic signature of Prov ider Migration on 01/06/2025 at 08:26 AM EDT Sign off status: Pending * Provider: Date: 10/15/2024 Generated for Kita badillo/Makeda/Liamitting on: 01/06/2025 08:26 AM EDT
--- NOTE | 2025-01-06 08:06 | A.OFFPC_ITS ---
Intake Visit Reasons: restless leg syndrome Allergies levofloxacin Adverse Reaction (Severe, Uncoded 01/06/25 08:19) Joint Pain Medication List - Last Reconciled 01/06/25 by Mami Wang MD atenolol 25 mg PO DAILY calcium carbonate 600 mg PO DAILY cholecalciferol (vitamin D3) 50 mcg PO DAILY gabapentin 600 mg PO BEDTIME levothyroxine 75 mcg PO DAILY lorazepam 0.5 mg PO DAILY PRN omeprazole 20 mg PO Q2D@0630 rosuvastatin 5 mg PO BEDTIME vitamin E mixed 400 units PO DAILY Tobacco use date assessed: 01/06/25 Fall risk assessment: No Falls in past year Last assessed Fall Risk: 01/06/25 Dental Screening Dental Screen Date: 01/06/25 Did you have a dental visit in the last 12 months?: Yes Did you have a dental problem in the last 6 months where you did not have access to dental care?: No Was dental information given to patient?: Patient has dentist HPI restless leg syndrome HPI Details - 69-year-old female here today via [employer] complaining off frequent twitching of legs at night, which is alleviated by walking. She currently takes gabapentin at night 600 mg per tablet. Reviewed of latest labs showed no anemia present. It did show her fasting blood sugar levels have increased from 97 to 112, placing her in the prediabetic range. She has a family history of diabetes, as her father was diabetic. She consumes two sodas a day . - Hypothyroidism: The patient is on medi cation for hypothyroidism and reports no palpitations or other symptoms. Her TSH is slightly low, but free T4 is normal - Preventative care: The patient has rec eived vaccinations for flu, shingles, RSV, pneumonia, and Tdap. She plans to get her flu shot soon. [facility] Medical History History of nephrolithiasis Impaired fasting glucose Osteoarthritis Osteopenia of left forearm Arthritis GERD (gastroesophageal reflux disease) Ovarian cyst Essential hypertension Dyslipidemia Restless leg syndrome Acquired hypothyroidism Fatigue Surgical History Hx of colonoscopy History of back surgery Status post total hip replacement, bilateral Hx laparoscopic cholecystectomy (07/04/96) Social History Household Members: [facility] Do you presently have visiting nurse or other home services: No Patient Tobacco Use Status: Former Tobacco user Years Smoked: 25 yrs e-Cigarette/Vaping Use: Never Used service: No Current occupational status: retired Cognitive needs: No Hearing needs: No Vision needs: Yes Questionnaire PHQ-9 Over the last 2 weeks, how often have you been bothered by any of the following problems? 1. Little interest or pleasure in doing things: not at all 2. Feeling down, depressed, or hopeless: not at all 3. Trouble falling or staying asleep, or sleeping too much: several days 4. Feeling tired or having little energy: several days 5. Poor appetite or overeating: several days 6. Feeling bad about yourself - or that you are a failure or have let yourself or your family down: not at all 7. Trouble concentrating on things, such as reading the newspaper or watching television: not at all 8. Moving or speaking so slowly that other people could have noticed. Or the opposite - being so fidgety or restless that you have been moving around a lot more than usual: not at all 9. Thoughts that you would be better off or of hurting yourself in some way: not at all Total score: 3 Depression Screening Interpretation: Negative Depression Screening Done: Yes Source: Developed by Drs. Piyush Santiago, Abimbola Palafox, Seth Omer and colleagues, with an educational mike from [employer]. Thrive Questionnaire Date Thrive assessed: 11/10/24 I am a: Patient What is your living situation today?: I have a steady place to live Within the past 12 months, did the food you bought not last and you didn't have the money to get more?: Never true Within the past 12 months, did you worry whether your food would run out before you got money to buy more?: Never true Do you have trouble paying for medicines?: No Do you have trouble getting transportation to medical appointments?: No Do you have trouble paying your heating and electricity bill?: No Do you have trouble taking care of your child, family member or friend?: No Do you have trouble with day-to-day activities such as bathing, preparing meals, shopping, managing finances, etc.?: No Are you currently unemployed and looking for a job?: No Are you interested in more education?: No Please select the resources that you would like help with: None Currently or been in a relationship where the following occur: No concerns reported THRIVE Score: 0 AUDIT C Alcohol Use Questionnaire (AUDIT-C) 1. How often do you have a drink containing alcohol?: Monthly or less 3. How often do you have six or more drinks on one occasion?: Never Total Score: 1 COURTNEY-7 AMB Questionnaire COURTNEY-7 Date COURTNEY - 7 assessed: 11/17/24 Feeling nervous, anxious, or on edge: 0 = Not at all Not being able to stop or control worryin = Not at all Worrying too much about different things: 0 = Not at all Trouble relaxin = Not at all Being so restless that it is hard to sit still: 1 = Several days Becoming easily annoyed or irritable: 0 = Not at all Feeling afraid as if something awful might happen: 0 = Not at all Total COURTNEY-7 score (0-4 normal; 5-9 mild; 10-14 moderate; 15-21 severe): 1 Source: Developed by Drs. Piyush Santiago, Abimbola Palafox, Seth Omer and colleagues, with an educational mike from [employer]. Review of Systems Const All systems reviewed & are unremarkable except as noted in HPI and below Reports no additional complaints Eyes Details: Sees Dr. Simpson Reports no additional complaints ENT Details: Sees [facility] dental Reports no additional complaints Card Reports no additional complaints Resp Reports no additional complaints GI Reports no additional complaints Reports no additional complaints Musc Reports as per HPI Skin/Breast Reports system reviewed and no additional complaints, except as documented Neuro Reports no additional complaints Psych Reports no additional complaints Endo Reports no additional complaints Thierno/Lymph Reports no additional complaints Aller/Immun Reports no additional complaints Physical exam (Primary Care) Tobacco/Smoking Status: Tobacco use Status Tobacco use date assessed 01/06/25 01/06/25 08:09 Patient Tobacco Use Status Former Tobacco user 01/06/25 08:09 e-Cigarette/Vaping Use Never Used 01/06/25 08:09 PHQ-9: PHQ-9 Score PHQ-9: Total score 3 01/06/25 08:09 Depression Screening Interpretation: Negative Thrive Assessment: Date of Thrive Assessment Date Thrive assessed 11/10/24 01/06/25 08:09 Currently or been in a relationship where the following occur: No concerns reported Telehealth Telehealth Telehealth Platform: [employer] Location of provider rendering services: practice address Location of patient: address on file Patient Identification confirmed using: Name, : Yes Telehealth method: video Patient verbally consented to treatment: Yes Patient verbally consented to billing insurance company: Yes Patient informed of any privacy concerns related to visit: Yes Minutes spent on Phone/Video with Pt.: 15 Results Reviewed Results Reviewed: Name: Fide Edward Age/Sex: 69/F : 1955 Unit#: [id number] Attend Dr: Mami Wang MD Re01/03/25 Status: DEP REF Location: [facility] Disch: SPEC : [id number] SAMMIE: 01/03/25 STATUS: COMP REQ : [id number] RECD: 01/03/25-[address]: Mami Wang MD COMP: 01/03/25 ENTERED: 01/03/[address]: ORDERED: Met Prof Fast, MG, AST, ALT, Free T4, TSH Test Result Flag Reference Sodium 142 135-145 mmol/L Potassium 3.9 3.3-5.1 mmol/L CL 106 96-108 mmol/L CO2 29 22-29 mmol/L Gap 11 L 12-20 BUN 9 9-16 mg/dL Creat 0.61 0.5-1.4 mg/dL eGFR > 60 Chronic Kidney Disease: Estimated GFR < 60 mL/min/1.73m2 Severe Kidney Disease: Estimated GFR < 15 mL/min/1.7 3m2 FBS 112 H 60-99 mg/dL A fasting glucose from 100-125 mg/dl is considered impaired (pre-diabetes). CA 9.4 8.4-10.2 mg/dL Magnesium 1.9 1.6-2.6 mg/dL AST (GOT) 25 5-31 U/L ALT (GPT) 13 0-31 U/L Free T4 1.42 0.71-1.85 ng/dL TSH 3rd Gen. 0.12 L 0.32-4.0 uIU/mL TSH 3rd Generation ([facility]) Coding Level of Care Code Tele Est Pt Level 4 (36527) Diagnoses Restless leg syndrome G25.81 Acquired hypothyroidism E03.9 Impaired fasting glucose R73.01 Assessment & Plan Assessment & Plan (1) Restless leg syndrome: Code(s): G25.81 - Restless legs syndrome Category: Medical Plan: Continue with gabapentin 600 mg at bedtime, trial of magnesium glycinate 100-200 mg capsules at night, which can be bought [id number]. Continue with her calcium and vitamin-D 3 supplementation. (2) Acquired hypothyroidism: Code(s): E03.9 - Hypothyroidism, unspecified Category: Medical Plan: Continue levothyroxine 75 mcg daily (3) Impaired fasting glucose: Code(s): R73.01 - Impaired fasting glucose Category: Medical Plan: Your previous fasting blood sugars were elevated above 100 mg/dL. Impaired glucose metabolism increases the risk for developing diabetes mellitus type 2, as well as heart attack and stroke later on. Lifestyle changes that promotes weight loss, healthy eating habits, and regular exercise are important, and can prevent the progression to diabetes
--- OUTSIDE RECORDS SUMMARY | 2025-01-06 08:28 | XMS_ITS | Patient Health Record ---
Author Organization [facility] Address [address] [place] [address] Care Team Providers Care Returned Goods Sorter Name Role Phone BELL POLKIECH Primary Care [...] Status Risk Notes Problem Restless legs syndrome (98502155) Restless legs syndrome (G25.81) Active confirmed Problem Hypothyroidism (66137663) Hypothyroidism (acquired) (E03.9) Active confirmed Encounters Encounter Location Date Provider Diagnosis [facility] [address] [place] [address] 10/15/2024 Provider Migration Hypothyroidism (acquired) E03.9 Assessments Encounter Date Diagnosis (ICD Code) Assessment Notes Treatment Notes Treatment Clinical Notes Section Notes 10/15/2024 Hypothyroidism (acquired) (ICD-10 - E03.9) Plan Of Treatment No Information
--- OUTSIDE RECORDS SUMMARY | 2025-01-06 08:28 | XMS_ITS | Patient Health Record ---
Author Organization [facility] Address [address] [place] [id number] Care Team Providers Care Systems Integration Advisor Name Role Phone Felipe MILLAN, Mami Primary [...] Problem Status W/U Status Risk Notes Problem [id number] Colon cancer screening (Z12.11) Active confirmed Problem 515926150 Gastroesophageal reflux disease without esophagitis (K21.9) Active confirmed Problem 1049132 Diverticulitis o f large intestine with abscess without bleeding (K57.20) Active confirmed Encounters Encounter Location Date Provider Diagnosis [facility] [address] [place] [address] 03/03/2024 Mat Diane Jr Plan Of Treatment Future Test Test Name Order Date COLONOSCOPY 08/09/2012 COLONOSCOPY 08/18/2022 Insurance Providers Payer Name Payer Address Payer Phone Subscriber Number Group Number Insured Name Patient Relationship to Insured Coverage Start Date Coverage End Date MEDICARE OF [place] [address] [id number] [address] [id number] ROHANJULIANA Ibarra Self - patient is the insured [facility] [address] [place] [address] [phone] [id number] JULIANA LYNN Self - patient is the [...] implants Future surgery right rotator cuff - [facility] Hospitalization History Reason Date(Month/Year) diverticulitis 02/15
== END 2025-01-06 09:03 | disposition home or self-care (01) ==
LOC: HO.HMCC 08:10
PROVIDERS: PCP Internal Medicine; Visit Provider Internal Medicine
DX: G25.81 Restless legs syndrome (principal); E03.9 Hypothyroidism, unspecified; R73.01 Impaired fasting glucose

== ENCOUNTER 2025-01-06 11:15 | Outpatient (REF) | payer MEDICARE, OTHER, SELFPAY ==
--- NOTE | ~2025-01-06 | US_ITS ---
EXAMINATION: US RETROPERITONEAL LIMITED (RENAL ONLY) CLINICAL INFORMATION: Calculus of kidney. COMPARISON: April 01, 2024 reported nonobstructing nephrolithiasis, right kidney. TECHNIQUE: Real-time ultrasound kidneys using grayscale technique. FINDINGS: RIGHT KIDNEY: 10 x 5 x 4 cm (SAG x AP x TRV) volume: 99 cc. Normal echotexture. Normal renal cortical thickness. No hydronephrosis. There is a 5 mm hyperechoic abnormality at the corticomedullary junction lower pole. LEFT KIDNEY: 11 x 5 x 5 cm (SAG x AP x TRV) volume: 115 cc. Normal echotexture. Normal renal cortical thickness. No hydronephrosis. No gross solid or cystic lesion. US/US renal BI IMPRESSION: 5 mm nonobstructing calculus, right kidney. No hydronephrosis.. Electronically signed by: Spencer Levine MD 01/06/2025 11:53 AM EDT
== END 2025-01-06 11:16 | disposition home or self-care (01) ==
LOC: HO.HMGCX 11:15
PROVIDERS: PCP Internal Medicine; Visit Provider Urology
DX: N20.0 Calculus of kidney (principal); N39.0 Urinary tract infection, site not specified; G25.81 Restless legs syndrome; E03.9 Hypothyroidism, unspecified; R73.01 Impaired fasting glucose
CPT/HCPCS: 76775

== ENCOUNTER → 2025-01-06 11:24 | Outpatient (BNV) | payer MEDICARE, OTHER, SELFPAY | PROVIDERS: PCP Internal Medicine; Visit Provider Radiology Diagnostic Radiology | DX: N20.0 Calculus of kidney (principal) | CPT/HCPCS: 76775 ==

== ENCOUNTER 2025-01-13 13:50 | Outpatient (AMB) | payer MEDICARE, OTHER, SELFPAY ==
--- NOTE | 2025-01-13 13:57 | A.OFFVIS_ITS ---
Intake Visit Reasons: 9m/US Intake Note: Patient is present for 9m/US * 01/06 Renal US Urology Medication: Cephalexin Antibiotic Allergies:Levofloxacin Blood Thinners: None PVR:0ml Director Of Graduate Admissions Required: No Accompanied by: Self / Same As Patient Allergies levofloxacin Adverse Reaction (Severe, Uncoded 01/06/25 08:19) Joint Pain Medication List - Last Reconciled 01/13/25 by Cr Gallardo MD atenolol 25 mg PO DAILY calcium carbonate 600 mg PO DAILY cholecalciferol (vitamin D3) 50 mcg PO DAILY gabapentin 600 mg PO BEDTIME levothyroxine 75 mcg PO DAILY lorazepam 0.5 mg PO DAILY PRN omeprazole 20 mg PO Q2D@0630 rosuvastatin 5 mg PO BEDTIME sulfamethoxazole-trimethoprim 800-160 mg (Bactrim DS) 1 tab PO BID vitamin E mixed 400 units PO DAILY HPI Comments Details: 01/13/15--Annabel is a 69-year-old female who is followed for recurrent UTIs. She presents today urinalysis is nitrite positive. The patient has history of diverticular disease. History of Present Illness The patient is a 69-year-old female presenting with symptoms suggestive of a urinary tract infection. She has a history of recurrent urinary tract infections and reports symptoms including low back ache, maricruz cheeks, and urinary urgency without successful voiding for about a week. She is currently on Cephalexin. A renal ultrasound conducted on 12/30/24 revealed a 4-5 mm nonobstructing kidney stone in the right kidney. The patient believed she might have passed the stone due to an episode of hematuria, but imaging confirmed its persistence. Plans for shockwave lithotripsy have been discussed to address the kidney stone. The patient also has a history of diverticular disease, which occasionally results in episodes of diarrhea. She reports that these episodes are less frequent and better controlled now. Results - Urinalysis: Nitrate positive - Renal ultrasound (12/30/24): 4-5 mm nonobstructing kidney stone in the right kidney Plan 1. Recurrent Urinary Tract Infections -initiate antibiotic pending culture results. Discontinue Cephalexin while on abx therapy pending c/s results 2. Nonobstructing Kidney Stone - Plan for shockwave lithotripsy to fragment the stone. 3. Diverticular Disease - Monitor for episodes of diarrhea and manage symptomatically. 04/15/2024--here for follow-up to review renal ultrasound. Patient is on low- dose antibiotic suppressive therapy Keflex 250 mg daily for recurrent UTIs. Renal ultrasound 04/01/2024--official reading pending. Fide is a 68-year-old female who presents to the office for a follow-up. The patient had a history of diverticular abscess in January 2022 which was drained by interventional radi ology at that time. The patient is former tobacco user. She states she has been doing well, no recurrent UTI symptoms. Last urine culture 12/25/2023 no growth CTAP with contrast results reviewed?02/20/22?Kidneys: WNL with 1.7 cm cyst in the right kidney. Evaluation of bladder with cystoscopy in the operating room on 09/30/22. Findings at that time noted bladder wall thickening. She has continued t o have recurrent UTI episodes. She has intermittent constipation and diarrhea. 12/24/23--Fide is a 68-year-old female who presents to the office for a follow-up. She was initially evaluated on 09/01/22 as a new patient for microscopic hematuria. The patient had a history of diverticular abscess in January 2022 which was drained by interventional radiology at that time. The patient is former tobacco user.? CTAP with contrast results reviewed?02/20/22?Kidneys: WNL with 1.7 cm cyst in the right kidney. Evaluation of bladder with cystoscopy in the operating room on 09/30/22. Findings at that ti me noted bladder wall thickening. She has continued to have recurrent UTI episodes. She has intermittent constipation and diarrhea. Discussed importance Hygiene which she has been diligent with. Continue low dose antibiotic suppessive therapy. She has right renal stone will continue to monitor. Renal US on FU. 08/21/2023---Fide is here for follow-up she has had symptomatic recurrent UTIs. On review of her chart she had a culture positive UTI in February and April. She states that since the UTI in April she has not had UTI symptoms of dysuria or bladder pressure. She did however have some upper respiratory tract symptoms and was on prednisone and amoxicillin in June. She is here in follow-up and had a renal ultrasound done. Urinalysis nitrite positive, 3+ leukocytes. I have reviewed renal ultrasound performed on 08/07/2023-- 5 mm nonobstructing right renal calculus is seen. (this is a new finding not noted on prior CT scan 01/2022) No left renal calculus is seen. No hydronephrosis is noted bilaterally. debris within the urinary bladder.. 11/10/22--Fide is a 66-year-old female who presents to the office for a follow-up. She was initially evaluated on 09/01/22 as a new patient for microscopic hematuria. The patient had a history of diverticular abscess in January 2022 which was drained by interventional radiology at that time. The patient is former tobacco user.? CTAP with contrast results reviewed?02/20/22?Kidneys: WNL with 1.7 cm cyst in the right kidney. She is status post cystoscopy in the operating room on 09/30/22. Findings at that time noted bladder wall thickening. No suspicious bladder lesion visualized. She also had a urine cytology that was sent on 09/02/22. (Negative for malignant cells) She reports mild cloudy urine. She denies any discomfort while urinating. Evaluation today ??UA ? 3+ leuk, trace blood. Bladder scan PVR 355 mL. The patient voided again, she missed the collection container but reported that she voided a large amout of urine I have advised Timed voiding every 3 hrs ON LICENSE OF [facility] Medical History History of nephrolithiasis Impaired fasting glucose Osteoarthritis Osteopenia of left forearm Arthritis GERD (gastroesophageal reflux disease) Ovarian cyst Essential hypertension Dyslipidemia Restless leg syndrome Acquired hypothyroidism Fatigue Surgical History Hx of colonoscopy History of back surgery Status post total hip replacement, bilateral Hx laparoscopic cholecystectomy (07/04/96) Social History Household Members: Spouse Housing: Condominium Do you presently have visiting nurse or other home services: No Patient Tobacco Use Status: Former Tobacco user Years Smoked: 25 yrs e-Cigarette/Vaping Use: Never Used service: No Current occupational status: retired Cognitive needs: No Hearing needs: No Vision needs: Yes Review of Systems Const All systems reviewed & are unremarkable except as noted in HPI and below Reports no additional complaints Eyes Reports no additional complaints ENT Reports no additional complaints Card Reports no additional complaints Resp Reports no additional complaints GI Reports no additional complaints Reports as per HPI Musc Reports no additional complaints Skin/Breast Reports system reviewed and no additional complaints, except as documented Neuro Reports no additional complaints Psych Reports no additional complaints Endo Reports no additional complaints Thierno/Lymph Reports no additional complaints Aller/Immun Reports no additional complaints Results Reviewed Results Reviewed: Date of Service: 01/06/25 EXAMINATION: US RETROPERITONEAL LIMITED (RENAL ONLY) CLINICAL INFORMATION: Calculus of kidney. COMPARISON: April 01, 2024 reported nonobstructing nephrolithiasis, right kidney. TECHNIQUE: Real-time ultrasound kidneys using grayscale technique. FINDINGS: RIGHT KIDNEY: 10 x 5 x 4 cm (SAG x AP x TRV) volume: 99 cc. Normal echotexture. Normal renal cortical thickness. No hydronephrosis. There is a 5 mm hyperechoic abnormality at the corticomedullary junction lower pole. LEFT KIDNEY: 11 x 5 x 5 cm (SAG x AP x TRV) volume: 115 cc. Normal echotexture. Normal renal cortical thickness. No hydronephrosis. No gross solid or cystic lesion. US/US renal BI IMPRESSION: 5 mm nonobstructing calculus, right kidney. No hydronephrosis.. Collected: 10/08/23 Status: COMP Req#: [id number] Received: 10/08/23123 Source: [facility] Sp Desc: Clean Cat Subm Dr: Cr Gallardo MD Ordered: Urine Culture Procedure Result Verified Urine Culture Final 10/10/23 Organism 1 Klebsiella pneumoniae Quant > 100,000 cfu/mL Kleb pneum M.I.C. RX --------- --- Ampicillin >=32 R Ceftriaxone <=0.25 S Gentamicin <=1 S Levofloxacin <=0.12 S Nitrofurantoin 64 I Trimethoprim/Sulfamethoxazole <=20 S Date of Service: 08/07/23 EXAMINATION: US RETROPERITONEAL COMPLETE (RENAL) CLINICAL INFORMATION: Urinary tract infection, site not specified. COMPARISON: CT abdomen and pelvis 02/20/2022. TECHNIQUE: Real-time imaging of the kidneys and bladder. FINDINGS: RIGHT KIDNEY: 9.7 x 5.0 x 5.8 cm (SAG x AP x TRV). The kidney is normal in size, contour, and echogenicity. Renal cortical thickness is normal. No hydronephrosis. At the lower pole, a 5 mm nonobstructing calculus is seen. At the upper pole, a 7 mm benign, simple cyst is seen, for which no imaging follow-up is recommended. LEFT KIDNEY: 11.5 x 5.5 x 4.7 cm (SAG x AP x TRV). The kidney is normal in size, contour, and echogenicity. Renal cortical thickness is normal. No calculi or focal parenchymal lesions. No hydronephrosis. BLADDER: Well distended and normal. Bilateral ureteral jets are not demonstrated. Prevoid bladder volume is 343 mL. Postvoid bladder volume is 220 mL. Mild dependent debris is noted within the urinary bladder. IMPRESSION: 1. A 5 mm nonobstructing right renal calculus is seen. No left renal calculus is seen. No hydronephrosis is noted bilaterally. 2. There is an increased postvoid residual volume. 3. There is debris within the urinary bladder, for which correlation with the patient's most recent urinalysis is recommended. Collected: 05/15/231111 Status: COMP Req#: [id number] Received: 05/15/23 Source: [facility] Sp Desc: Clean Cat Subm Dr: Cr Gallardo MD Ordered: Urine Culture Procedure Result Verified Urine Culture Final 05/17/2331 Organism 1 Pseudomonas aeruginosa Quant 10,000 to 50,000 cfu/mL P aerugino M.I.C. RX --------- --- Cefepime 2 S Gentamicin 4 S Levofloxacin <=0.12 S Meropenem <=0.25 S Piperacillin/Tazobactam 8 S Collected: 03/24/231013 Status: COMP Req#: [id number] Received: 03/24/231446 Source: [facility] Yazan Desc: Clean Cat Subm Dr: Cr Gallardo MD Ordered: Urine Culture Procedure Result Verified Urine Culture Final 03/26/230753 Organism 1 Pseudomonas aeruginosa Quant > 100,000 cfu/mL P aerugino M.I.C. RX --------- --- Cefepime 2 S Gentamicin <=1 S Levofloxacin <=0.12 S Meropenem <=0.25 S Piperacillin/Tazobactam <=4 S Assessment & Plan Assessment & Plan (1) Kidney stone: Code(s): N20.0 - Calculus of kidney Category: Medical (2) Recurrent UTI: Code(s): N39.0 - Urinary tract infection, site not specified Category: Medical Plan 1. Recurrent Urinary Tract Infections -initiate antibiotic pending culture results. Discontinue Cephalexin while on abx therapy pending c/s results - Bactrim DS 1 tab twice a day for 7 days 2. Nonobstructing Kidney Stone - Plan for shockwave lithotripsy to fragment the stone. 3. Diverticular Disease - Monitor for episodes of diarrhea and manage symptomatically. Medications: New sulfamethoxazole-trimethoprim 800-160 mg (Bactrim DS) 1 tab PO BID 14 tabs 0RF Patient Instructions: The patient had an opportunity to ask questions regarding treatment plan. The patient expressed understanding and agreement with the above treatment plan. The patient is aware they should contact our office by phone for worsening of their current condition or the appearance of new symptoms. Compliance is encouraged with any medications and followup testing that is ordered. It is a privilege to be allowed the opportunity to participate in the urologic care of your patient. If you have any questions or concerns regarding treatment for the above conditions please do not hesitate to contact me. The office telephone contact is [phone]. This note is constructed in part using voice recognition software. While every effort has been made to ensure accuracy surgical technician errors may have been in cluded. Yours sincerely, Cr Gallardo MD Scribe Plan - Not visible on output: Patient was informed and verbally consented to the use of an ambient scribe for clinic note documentation during this visit. Coding Level of Care Code Est Pt Level 4 (85695) Complex EM visit Add On G2211 Diagnoses Kidney stone N20.0 Recurrent UTI N39.0
== END 2025-01-13 14:29 | disposition home or self-care (01) ==
LOC: HO.HUSH 13:50
PROVIDERS: PCP Internal Medicine; Visit Provider Urology
DX: N20.0 Calculus of kidney (principal); N39.0 Urinary tract infection, site not specified
CPT/HCPCS: 99214; G2211

== ENCOUNTER 2025-01-13 13:50 | Outpatient (REF) | payer MEDICARE, OTHER, SELFPAY | END 2025-01-13 13:51 | disposition home or self-care (01) | LOC: HO.LNP 13:50 | PROVIDERS: PCP Internal Medicine; Visit Provider Urology | DX: N39.0 Urinary tract infection, site not specified (principal); N20.0 Calculus of kidney | CPT/HCPCS: 51798; 81003; 87086; 87088; 87186; 99212 ==

== ENCOUNTER 2025-03-17 12:31 | Outpatient (REF) | payer MEDICARE, OTHER, SELFPAY ==
--- OUTSIDE RECORDS SUMMARY | 2025-03-17 12:50 | XMS_ITS | Patient Health Record ---
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 Problems Problem Type SNOMED Code ICD Code Onset Dates Problem Status W/U Status Risk Notes Problem Colon cancer screening (502289038) Colon cancer screening (Z12.11) Active confirmed Problem Gastroesophageal reflux disease without esophagitis (407142998) Gastroesophageal reflux disease without esophagitis (K21.9) Active confirmed Problem Perforated diverticulum of large intestine (953737245) Diverticulitis of large intestine with abscess without bleeding (K57.20) Active confirmed Plan Of Treatment Future Test Test Name Order Date COLONOSCOPY 08/09/2012 COLONOSCOPY 08/18/2022 Insurance Providers Payer Name Payer Address Payer Phone Subscriber Number Group Number Insured Name Patient Relationship to Insured Coverage Start Date Coverage End Date [place]ARE OF [place] [address] [place] [address] [id number] JULIANA LYNN Self - patient is the insured [facility] [address] [place] [phone] [id number] JULIANA LYNN Self - patient is the [...] implants Future surgery right rotator cuff - [facility] Hospitalization History Reason Date(Month/Year) diverticulitis 02/15
== END 2025-03-17 12:32 | disposition home or self-care (01) ==
LOC: HO.LAB 12:31
PROVIDERS: PCP Internal Medicine; Visit Provider Urology
DX: N39.0 Urinary tract infection, site not specified (principal); Z87.442 Personal history of urinary calculi
CPT/HCPCS: 87086

== ENCOUNTER 2025-03-29 06:03 | Day surgery (SDC) | payer MEDICARE, OTHER, SELFPAY ==
--- OUTSIDE RECORDS SUMMARY | 2025-03-16 00:03 | XMS_ITS | Patient Health Record ---
Author Organization [facility] Address [address] [place] [id number] Care Team Providers Care Child Specialist Name Role Phone Mami Wang MD Primary Care Provider Mat Martin Jr [phone] Allergies No Known Allergies Reason For Referral No Information Medications Medication SIG (Take, Route, Frequency, Duration) Notes Start Date End Date Status Percocet 5-325 MG Tablet 1 tablet as needed Orally every 6 hrs as needed Active Atenolol 25mg Active Levothyroxine Sodium 100mcg Active Omeprazole 20 MG Capsule Delayed Release TAKE 1 CAPSULE BY MOUTH 30 MINUTES BEFORE MORNING MEAL ONCE A DAY; Duration: 90 days Active Vitamin D3 2000 UNIT Capsule Orally Once a day Active Vitamin C Active LORazepam 0.5mg Not- Taking/PRN MiraLax (colon prep) 17 GM/SCOOP Powder mixed with Gatorade or Crystal Light Orally begin at 5:00 p.m. the day before the procedure; Duration: 1 day 08/18/2022 Active buPROPion HCl ER (SR) 200mg Not-Taking/PRN Rosuvastatin Calcium 10 MG Tablet 1 tablet Orally Once a day; Duration: 30 day(s) Active Lisinopril 10mg Not- Taking/PRN Gabapentin 400 MG Capsule 1 capsule Orally Once a day; Duration: 30 day(s) Active Melatonin 3 MG Tablet 1 tablet at bedtim e as needed Orally Once a day; Duration: 30 day(s) Active Multivitamin - Tablet 1 tablet Orally Once a day; Duration: 30 day(s) Active Immunizations Vaccine Route Administration Date Status Comme nts Influenza Unknown 02/11/2022 Administered Social History Social History Additional Details Category Social Info Options Details Miscellaneous: Marital status: 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 Problems Problem Type SNOMED Code ICD Code Onset Dates Problem Status W/U Status Risk Notes Problem Colon cancer screening (905272030) Colon cancer screening (Z12.11) Active confirmed Problem Gastroesophageal reflux disease without esophagitis (725930947) Gastroesophageal reflux disease without esophagitis (K21.9) Active confirmed Problem Perforated diverticulum of large intestine (780315955) Diverticulitis of large intestine with abscess without bleeding (K57.20) Active confirmed Plan Of Treatment Future Test Test Name Order Date COLONOSCOPY 08/09/2012 COLONOSCOPY 08/18/2022 Insurance Providers Payer Name Payer Address Payer Phone Subscriber Number Group Number Insured Name Patient Relationship to Insured Coverage Start Date Coverage End Date MED[place]ARE OF [place] [address] [place] [address] [id number] JULIANA LYNN Self - patient is the insured [facility] [address] [place] [phone] [id number] JULIANA LYNN Self - patient is the [...] implants Future surgery right rotator cuff - [facility] Hospitalization History Reason Date(Month/Year) diverticulitis 02/15
[2025-03-27 12:26] VITALS: BMI 23.6
[2025-03-27 12:44] VITALS: BMI 22.5
--- NOTE | ~2025-03-29 | XR_ITS ---
EXAMINATION: XR ABDOMEN KUB CLINICAL INDICATION: pre right ESWL COMPARISON: Correlated to CT abdomen and pelvis dated February 20, 2022. TECHNIQUE: AP view of the abdomen. FINDINGS: No gross calcifications overlapping the kidney shadows or the bladder region. Gas throughout nondilated intestine. Abundant stool. No air-fluid levels. Sutures in the right lower pelvis. Multilevel thoracolumbar spondylosis with dextroconvex rotoscoliosis lumbar spine apex at L3. Liver shadow projects below the rib cage abutting the right iliac bone. Vascular clips right upper quadrant abdomen, likely Status post cholecystectomy. Status post bilateral hip arthroplasty prosthesis. Degenerative changes in the stents as well as and sacroiliac joints. Patient's large body habitus. XR/XR KUB IMPRESSION: No gross nephrolithiasis.. Electronically signed by: Spencer Levine MD 03/29/2025 07:04 AM [email or web address]
[2025-03-29 06:27] VITALS: BMI 23.0
[2025-03-29 06:51] VITALS: BP 144/88; PULSE 70; RESP 16; TEMP 36.4; O2SAT 98
[2025-03-29] MEDS: Lactated Ringers 500 ML 999 ML IV (06:51)
--- NOTE | 2025-03-29 07:20 | HO.ANESPROP2 ---
Documented by User: Lenore Ozuna NP 03/27/25 09:53 HPI - Anesthesia Eval Consult details Narrative: 69 yr old female for right Lithotripsy ESW GERD: on PPI PMFSH Active Problems Active Problems: All Active Problems (Updated 11/19/24 @ 03:11 by Mami Wang MD) History of nephrolithiasis (Acute) Impaired fasting glucose (Acute) Osteoarthritis (Acute) Osteopenia of left forearm (Acute) History of tobacco use (Acute) Recurrent UTI (Acute) History of nicotine use (Acute) Incomplete bladder emptying (Acute) Essential hypertension (Acute) Dyslipidemia (Acute) Restless leg syndrome (Acute) Acquired hypothyroidism (Acute) Past Medical History Medical History History of nephrolithiasis Impaired fasting glucose Osteoarthritis Osteopenia of left forearm Arthritis GERD (gastroesophageal reflux disease) Ovarian cyst Essential hypertension Dyslipidemia Restless leg syndrome Acquired hypothyroidism Fatigue Family History Family history of problems with anesthesia: No Surgical History Surgical History Hx of cystoscopy (09/30/22) Hx of colonoscopy (10/07/22) History of back surgery Status post total hip replacement, bilateral Hx laparoscopic cholecystectomy (07/04/96) History of Problems with Anesthesia: No Social History Social History Household Members: Spouse Housing: Condominium Are you a primary special needs child caregiver to a significant other at home: No Do you presently have visiting nurse or other home services: No Patient Tobacco Use Status: Former Tobacco user Years Smoked: 25 yrs Smoked in Last 30 Days: No e-Cigarette/Vaping Use: Never Used Second Hand Smoke Exposure: No Use of substances other than those prescribed or required for medical reasons: No Have you been hit, kicked, punched, or otherwise hurt by someone within the past year? If so, by whom?: No Are you DNR?: No Advance Directives: No Advance Directives Information Provided: Yes Advance Directives on File: No Advance Directives Date on File: 02/19/22 Patient : No : No service: No Current occupational status: retired Cognitive needs: No Hearing needs: No Vision needs: Yes Meds Allergies Allergy/AdvReac Type Severity Reaction Status Date / Time levofloxacin AdvReac Severe Joint Pain Uncoded 01/06/25 08:19 Home Medications ?Medication ?Instructions ?Recorded ?Confirmed ?Last Taken ?Type omeprazole 20 mg capsule,delayed 20 mg PO Q OTHER DAY 01/25/21 03/27/25 10/07/22 History release vitamin E mixed 400 unit capsule 400 unit PO DAILY 01/25/21 03/27/25 02/14/22 History calcium carbonate 600 mg PO DAILY 01/06/25 03/27/25 Unknown History cholecalciferol (vitamin D3) 50 50 mcg PO DAILY 01/06/25 03/27/25 Unknown History mcg (2,000 unit) capsule Assessment and Plan Final Anesthetic Review Family History of Problems with Anesthesia: No History of Problems with Anesthesia: No Documented by User: Lis Voss DO 03/29/25 07:50 PMFSH Past Medical History Medical History History of nephrolithiasis Impaired fasting glucose Osteoarthritis Osteopenia of left forearm Arthritis GERD (gastroesophageal reflux disease) Ovarian cyst Essential hypertension Dyslipidemia Restless leg syndrome Acquired hypothyroidism Fatigue Family History Family history of problems with anesthesia: No Surgical History Surgical History Hx of cystoscopy (09/30/22) Hx of colonoscopy (10/07/22) History of back surgery Status post total hip replacement, bilateral Hx laparoscopic cholecystectomy (07/04/96) History of Problems with Anesthesia: No Social History Social History Household Members: Spouse Housing: Condominium Are you a primary special needs child caregiver to a significant other at home: No Do you presently have visiting nurse or other home services: No Patient Tobacco Use Status: Former Tobacco user Years Smoked: 25 yrs Smoked in Last 30 Days: No e-Cigarette/Vaping Use: Never Used Second Hand Smoke Exposure: No Use of substances other than those prescribed or required for medical reasons: No Have you been hit, kicked, punched, or otherwise hurt by someone within the past year? If so, by whom?: No Are you DNR?: No Advance Directives: No Advance Directives Information Provided: Yes Advance Directives on File: No Advance Directives Date on File: 02/19/22 Patient : No : No service: No Current occupational status: retired Cognitive needs: No Hearing needs: No Vision needs: Yes Meds Allergies Allergy/AdvReac Type Severity Reaction Status Date / Time levofloxacin AdvReac Severe Joint Pain Uncoded 01/06/25 08:19 Home Medications ?Medication ?Instructions ?Recorded ?Confirmed ?Last Taken ?Type omeprazole 20 mg capsule,delayed 20 mg PO Q OTHER DAY 01/25/21 03/27/25 10/07/22 History release vitamin E mixed 400 unit capsule 400 unit PO DAILY 01/25/21 03/27/25 02/14/22 History calcium carbonate 600 mg PO DAILY 01/06/25 03/27/25 Unknown History cholecalciferol (vitamin D3) 50 50 mcg PO DAILY 01/06/25 03/27/25 Unknown History mcg (2,000 unit) capsule Exam Exam Date and Time: 03/29/25 0720 Height,Weight and Vital Signs: Height 5 ft 2 in Weight 57 kg Vital Signs Temperature 97.6 F 03/29/25 06:51 Pulse Rate 70 03/29/25 06:51 Respiratory Rate 16 03/29/25 06:51 Blood Pressure 144/88 H 03/29/25 06:51 Pulse Oximetry 98 03/29/25 06:51 Oxygen Delivery Method Room Air 03/29/25 06:51 Temperature 97.6 F 03/29/25 06:51 Pulse Rate 70 03/29/25 06:51 Respiratory Rate 16 03/29/25 06:51 Blood Pressure 144/88 H 03/29/25 06:51 Pulse Oximetry 98 03/29/25 06:51 Oxygen Delivery Method Room Air 03/29/25 06:51 Airway Mallampati Class: II TM Dist: >3cm Neck ROM: Full Loose/Missing/Broken Teeth: No (patient denies any loose or broken teeth) Heart: S1S2 Lungs: CTAB Assessment and Plan Assessment Anesthesia Assessment: Anesthesia Plan Discussed and Chart Reviewed Final Anesthetic Review Family History of Problems with Anesthesia: No History of Problems with Anesthesia: No NPO: Yes ASA Class: II Final Preanesthetic Review: No Changes in Pt Med Stat, Meds/Allgs Chart Reviewed, Consent Obtained/Reviewed and Anes Risks/Benef Reviewed Patient Risk: Low Procedure Risk: Low Anesthetic Plan Anesthetic Plan: MAC: and Agree w/ Assess. and Plan Disposition: Standard PACU
[2025-03-29] MEDS: Lactated Ringers 1,000 ML 100 ML IVCONT (07:36)
--- NOTE | 2025-03-29 08:01 | MHC.SHP ---
Pre-Procedural Eval Section A - 24 Hr Update-Section A only Date of Service: 03/29/25 The patient is an INPATIENT: No The patient has been examined within 24 hours of the surgical procedure. The History & Physical has been completed within 30 days and I have reviewed it.: Yes Section B - Complete if H&P > 30 days Chief Complaint: Calculus of kidney, right Allergies: Allergies Allergy/AdvReac Type Severity Reaction Status Date / Time levofloxacin AdvReac Severe Joint Pain Uncoded 01/06/25 08:19 Plan Diagnosis/Plan: Unchanged I have reviewed the history and physical and performed a pertinent physical examination on my patient. No changes have occurred unless specified. Right ESWL. Discussed risks to include but not limited to, blood in the urine, bruising to the skin, kidney hematoma, possible need for another procedure if a stone fragment obstructs the ureter while passing, possible need to repeat procedure if stone is not completely fragmented. Time Spent With Patient Time: Total time managing care of this patient today ____ minutes.
[2025-03-29 08:51] VITALS: BP 113/67; PULSE 73; RESP 16; TEMP 36.3; O2SAT 98
--- NOTE | 2025-03-29 08:55 | W.PM.OPN ---
Operative Note Operative Note Date of Service: 03/29/25 Narrative: PreOperative Diagnosis:? ? Right Renal stone Post Operative Diagnosis:?Right? Renal stone Procedure:?Right? ESWL Surgeon:?Dr Cr Gallardo Anesthesia:? MAC Indications for procedure: The patient understands there is a risk of bruising or hematoma to the kidney, infection, and stone migration following the procedure and subsequent intervention may be required.? - Imaging 5x5 mm stone Procedure: After informed consent was verified the patient was brought to the operating room and placed in a supine position.? Anesthesia was performed per protocol. Safety pause time-out was performed. Imaging was displayed in the room and laterality confirmed. ESWL was performed.?The stone was visualized on ultrasound.? Shockwave lithotripsy was performed, with a maximum rate of 120 hertz. After the first 300 shocks a pause for 3 minutes was completed.? A total of 2500 shocks to a maximum of power of 18 with a maximum rate of 120 hertz.? Some fragmentation of the stone was appreciated. The patient tolerated the procedure well and was transferred to the recovery area upon completion. Complications: None
[2025-03-29 09:05] VITALS: BP 111/69; PULSE 70; RESP 16; O2SAT 100
[2025-03-29 09:19] VITALS: BP 121/67; PULSE 74; RESP 16; TEMP 36.3; O2SAT 98
== END 2025-03-29 09:52 | disposition home or self-care (01) ==
PROVIDERS: PCP Internal Medicine; Visit Provider Urology
PROC: (CPT 50590; principal; 2025-03-29 07:30)
DX: N20.0 Calculus of kidney (principal); Z87.442 Personal history of urinary calculi; N28.1 Cyst of kidney, acquired; Z87.19 Personal history of other diseases of the digestive system; M54.50 Low back pain, unspecified; R39.15 Urgency of urination; Z87.440 Personal history of urinary (tract) infections; I10 Essential (primary) hypertension; R73.01 Impaired fasting glucose; E78.5 Hyperlipidemia, unspecified; E03.9 Hypothyroidism, unspecified; R53.83 Other fatigue; Z79.899 Other long term (current) drug therapy; Z88.1 Allergy status to other antibiotic agents; Z90.49 Acquired absence of other specified parts of digestive tract; Z96.643 Presence of artificial hip joint, bilateral; Z98.890 Other specified postprocedural states; Z87.891 Personal history of nicotine dependence
CPT/HCPCS: 50590; 74018; J0131; J0690; J1938; J2003; J2250; J2371; J2704; J3010

== ENCOUNTER → 2025-03-29 06:03 | Outpatient (BNV) | payer MEDICARE, OTHER, SELFPAY | PROVIDERS: PCP Internal Medicine; Visit Provider Urology | DX: N20.0 Calculus of kidney (principal) | CPT/HCPCS: 50590 ==

== ENCOUNTER → 2025-03-29 06:19 | Outpatient (BNV) | payer MEDICARE, OTHER, SELFPAY | PROVIDERS: PCP Internal Medicine; Visit Provider Radiology Diagnostic Radiology | DX: Z87.442 Personal history of urinary calculi (principal) | CPT/HCPCS: 74018 ==